=== PATIENT | female | born 1960 | race Caucasian/White ===

== ENCOUNTER 2024-08-27 11:47 | Inpatient (IN) | payer MEDICARE, SELFPAY ==
[2024-08-27] VITALS (20 sets, daily range): BP systolic 60–138; BP diastolic 47–95; PULSE 58–102; RESP 15–21; TEMP 36.3–37; O2SAT 94–100; BMI 25.6; BMI 25.8
--- NOTE | 2024-08-27 11:58 | EKG12_ITS ---
Test Reason : CP Blood Pressure : */* mmHG Vent. Rate : 99 BPM Atrial Rate : 99 BPM P-R Int : 90 ms QRS Dur : 130 ms QT Int : 348 ms P-R-T Axes : 12 64 36 degrees QTcB Int : 446 ms Sinus rhythm with short VT Right bundle branch block Abnormal ECG Confirmed by Liam Cain ([id number]), clinical editor PINO BANKS ([id number]) on 08/28/2024 9:35:19 AM Referred By: AR/TB Confirmed By: Liam Cain
--- NOTE | 2024-08-27 11:58 | RAD_ITS ---
PROCEDURE: CHEST PA AND LATERAL REASON FOR EXAM: Dizziness. Kidney infection. TECHNIQUE: Frontal and lateral views of the chest. COMPARISON: None. FINDINGS: The heart size is normal. The mediastinal contour is unremarkable. No acute consolidation, pleural effusion or pneumothorax. The visualized osseous structures demonstrate degenerative changes. RAD/Chest PA and Lateral IMPRESSION: No acute consolidation, pleural effusion or pneumothorax. Reading Location: [id number]
[2024-08-27 12:26] LABS: International Normalized Ratio 1.2; Prothrombin Time (Protime)PT. 14.9 SECONDS (11.7-14.9)
[2024-08-27 12:27] LABS: Partial Thromboplast Time 32.6 Seconds (24.1-36.2)
[2024-08-27 12:29] LABS: Absolute Neutrophil Count 19.5 X10^3/uL (2.0-7.7); Basophil# 0.12 X10^3/uL; Basophil% 0.5 % (0-1); Eosinophil# 0.01 X10^3/uL; Hematocrit 29.5 % (37-47); Hemoglobin 10.1 g/dL (12.0-15.0); Lymphocyte % 5.4 % (19-41); Mean Corp Hgb Conc 34.2 g/dL (32-36); Mean Corpuscular Hgb 31.4 pg (27.0-32.0); Mean Corpuscular Volume 91.6 fL (81-99); Mean Platelet Vol. 9.7 fl (6.2-12.0); Monocyte% 7.9 % (0-10); NRBC Flagged by Analyzer 0 % (0-5); Neutrophil % 81.7 % (47-70); POSITIVE DIFFERENTIAL YES; Platelet Count 449 K/mm3 (150-450); RBC Distribution Width CV 15.6 % (11.6-14.6); RBC Distribution Width SD 52.4 fl (35.1-43.9); Red Blood Count 3.22 M/mm3 (4.2-5.4); White Blood Count 23.9 K/mm3 (4.4-11.0)
[2024-08-27 12:34] LABS: Differential Indicated SCAN CRITERIA MET
[2024-08-27 12:42] LABS: Anion Gap 19 (5-15); BUN 31 mg/dL (4-19); BUN/Creat Ratio 9.5 RATIO (10-20); Calcium 8.5 mg/dL (7.6-11.0); Carbon Dioxide 20.4 mmol/L (22.0-29.0); Chloride 81 mmol/L (96-108); Creatinine, Serum 3.3 mg/dL (0.6-1.0); EST Glomerular Filtration Rate 15 (>60); Glucose 164 mg/dL (70-99); Potassium 3.9 mmol/L (3.3-5.1); Sodium Level 121 mmol/L (133-145)
[2024-08-27] MEDS: 0.9% Normal Saline (1000mL) 1,000 ML 999 ML IV ×3 (13:00→15:12)
--- NOTE | 2024-08-27 13:22 | US_ITS ---
PROCEDURE: KIDNEY AND BLADDER REASON FOR EXAM: UTI. Acute kidney injury. TECHNIQUE: Bilateral renal ultrasound. COMPARISON: None. FINDINGS: Normal renal sizes, parenchymal thicknesses, and echotextures. Moderate right hydronephrosis. No cysts or large solid renal masses. RIGHT Kidney Size: 12 cm x 6.5 cm x 4.9 cm Cortical Thickness (if discernible): 1.3 cm (>6mm is normal) Moderate degree of right hydronephrosis. LEFT Kidney Size: 10.6 cm x 4.8 cm x 5.5 cm Cortical Thickness (if discernible): 1.8 cm (>6mm is normal) US/Kidney and Bladder IMPRESSION: Moderate degree of right hydronephrosis. Reading Location: [id number]
[2024-08-27] MEDS: Ceftriaxone 1 GM/50 ML BAG IV (14:00)
[2024-08-27 14:14] LABS: Lactic Acid 1.7 mmol/L (0.0-2.0)
--- NOTE | 2024-08-27 14:17 | EX.ED.DYSGE1 ---
HPI History of Present Illness Chief Complaint: Dizziness Narrative Narrative: Patient is a 64-year-old female past medical history diabetes and hypertension who presents to the emergency department from her primary care office with a chief complaint of lightheadedness, generalized weakness feeling that she will fall and pass out. Patient states that she originally had influenza and got over that she states that she was dealing with urinary symptoms. States that she followed up with her primary care physician who prescribed her antibiotics today for UTI she states that she did not start them as she came immediately here because when she was walking out of the office she was very weak and lightheaded. Triage note states that the patient is dizzy after clarification the patient is not dizzy she feels lightheaded as noted earlier [facility] Medical History Diabetes Hypertension Allergy/AdvReac Type Severity Reaction Status Date / Time Sulfa (Sulfonamide Allergy Severe Angioedema Verified 08/27/24 12:50 Antibiotics) Social History Smoking Status: Current every day smoker tobacco type: cigarettes ROS ROS ED ROS Narrative Constitutional: Lightheadedness denies fevers, chills, headaches, dizziness Eyes: Denies changes double vision blurry vision Cardiovascular: Denies chest pain or palpitations Respiratory: Denies coughing wheezing shortness of breath Abdomen: Denies abdominal pain nausea vomit diarrhea : Denies any urinary symptoms Neurological: Complains of generalized weakness denies numbness or tingling Musculoskeletal: States that she does have some back pain in her sides bilaterally Skin: Denies any rashes or lesions EXAM Physical Exam Narrative Exam Narrative: General: Patient lying in bed rest comfortably did not appear to be in acute distress Head: Atraumatic, normocephalic Eyes: PERRL bilaterally, EOMI bilateral, no conjunctival injection noted Neck: Soft, supple, trachea midline Cardiovascular: Regular rate and rhythm no murmurs gallops rubs noted Respiratory: Clear to auscultation bilaterally Abdomen: Soft, nondistended, no tenderness palpation Musculoskeletal: Mild CVA tenderness noted more on the left than the right no tenderness palpation midline of the thoracolumbar spine Extremities: +5/5 strength noted in the bilateral upper and lower extremities, radial pulse +2/4 in the bilateral extremities Neurological: Patient following commands as she was at [facility] year is 2024. NIH of 0 GCS 15 Skin: Warm, dry, intact no rashes or lesions noted Const Vital Signs: 08/27/24 11:48 08/27/24 13:03 08/27/24 13:05 Temperature 98.1 F Temperature Source Temporal Pulse Rate 58 L Respiratory Rate 18 Blood Pressure 60/47 L Blood Pressure Mean 51 Pulse Ox 100 Oxygen Delivery Method Room Air Room Air Room Air 08/27/24 13:06 08/27/24 14:06 08/27/24 15:00 Temperature 98.6 F Temperature Source Oral Pulse Rate 94 87 82 Respiratory Rate 18 20 H Blood Pressure 81/47 L 79/58 L 93/56 L Blood Pressure Mean 58 65 68 Pulse Ox 95 98 Oxygen Delivery Method Room Air Room Air MDM MDM MDM Narrative Medical decision making narrative: Patient is a 64-year-old female who presented to the emergency department the chief complaint of lightheadedness, generalized weakness and dealing with a urinary tract infection. On the differential diagnose includes but not limited to urinary tract infection, pyelonephritis. Once workup is obtained reviewed she will be reevaluated. Patient be given 30 cc/kg bolus of IV fluids Which was ordered at 1305. Patient was given a gram of Rocephin at 1322. Patient CBC was significant leukocytosis of 23,000, he most 10.1, plate count was noted be 449. Patient INR normal at 1.2, PT 14.9. Patient sodium low at 121 indicating hyponatremia, has an anion gap of 19, glucose was noted to be 164. Patient's troponin was noted to be 35 with a delta troponin obtained at 32. Patient's urinalysis pending. Patient lactic acid normal at 1.7. Patient's ultrasound of her kidneys was reviewed and showed moderate degree of right hydronephrosis. I did add on a CT abdomen pelvis without IV contrast. Patient CT abdomen pelvis without IV contrast is still pending at this point time. Case was signed out to on-call provider to follow-up on this and likely admit the patient. See their note for the details. Reperfusion assessment performed at 1530 patient has a MAP of 68 therefore no vasopressors indicated. Lab Data Labs: Laboratory Results - last 24 hr 08/27/24 08/27/24 08/27/24 11:57 12:56 14:03 WBC 23.9 H RBC 3.22 L Hgb 10.1 L Hct 29.5 L MCV 91.6 MCH 31.4 MCHC 34.2 RDW Std Deviation 52.4 H RDW Coeff of Zainab 15.6 H Plt Count 449 MPV 9.7 Immature Gran % (Auto) 4.500 H Neut % (Auto) 81.7 H Lymph % (Auto) 5.4 L Harmon % (Auto) 7.9 Eos % (Auto) 0.0 Baso % (Auto) 0.5 Absolute Neuts (auto) 19.5 H Absolute Lymphs (auto) 1.30 Nucleated RBC % 0 Diff Path Review October foll PT 14.9 INR 1.2 APTT 32.6 Sodium 121 L Potassium 3.9 Chloride Direct 81 L Carbon Dioxide 20.4 L Anion Gap 19 H BUN 31 H Creatinine 3.3 H Est GFR (MDRD) Non-Af 15 L BUN/Creatinine Ratio 9.5 L Glucose 164 H Lactic Acid 1.7 Calcium 8.5 Troponin T High Sens 35 H Troponin T Hi Sens 2 Hr 32 H Troponin T Hi Sens 2Hr Delta 3 Radiography Diagnostic Testing: Clinical Impression(s) from Imaging Studies Chest X-Ray 08/27/24 11:58 IMPRESSION: No acute consolidation, pleural effusion or pneumothorax. Reading Location: [id number] Renal Ultrasound 08/27/24 13:22 IMPRESSION: Moderate degree of right hydronephrosis. Reading Location: [id number] Discharge Plan Triage Chief Complaint: Dizziness ED Provider: Willie Rees Dx/Rx/DC Orders Primary Care Provider: Avinash Senior Referrals: Avinash Senior MD [Primary Care Provider] - Print Language: Guyanese
[2024-08-27 14:18] LABS: Troponin T High Sensitivity 35 ng/L (<=14)
[2024-08-27 14:57] LABS: TROPONIN VARIANCE 2 HR 3; Troponin T High Sens 2 HR 32 ng/L (<=14)
--- NOTE | 2024-08-27 15:38 | CT_ITS ---
PROCEDURE: COMPUTED TOMOGRAPHY OF THE ABDOMEN AND PELVIS REASON FOR EXAM: Urinary tract infection. Dizziness. Diabetes and hypertension TECHNIQUE: Contiguous axial scans of 2.50 mm slice thicknesses. Sagittal and coronal reconstruction images were obtained. One or more dose reduction techniques were used (e.g., automated exposure control, adjustment of mA and/or kv according to patient size, use of iterative reconstruction technique). IV CONTRAST: Not given. COMPARISON: None. FINDINGS: Lung bases: Hypoventilatory changes and/or mild parenchymal scarring in the dependent lungs Liver: Unremarkable. Gallbladder: Unremarkable. Spleen: Unremarkable. Pancreas: Unremarkable. Adrenals: Unremarkable. Kidneys: Right kidney is enlarged with edematous changes. Perirenal fat stranding is seen on the right. Moderate hydronephrosis, right kidney. A lobulated hyperechogenic area is demonstrated in the right renal pelvis. Attenuation is slightly greater than the renal parenchyma. No calculi are noted in either kidney. Ureters unremarkable. Bladder: Unremarkable. Reproductive Organs: Unremarkable. Bowel: Unremarkable. Appendix: Normal. Lymph nodes: No suspicious lymph node enlargement. Vasculature: Atherosclerotic calcifications of the aortoiliac arteries. Peritoneum / Retroperitoneum: No ascites. No free air. Anterior abdominal wall: Fat containing periumbilical hernia. Bones: Approximately 6 mm of anterolisthesis of L4 on L5. Multilevel spondylosis and degenerative disc disease. CT/Abdomen/Pelvis without Cont IMPRESSION: 1. Edematous right kidney with perirenal fat stranding suggesting inflammation . 2. Moderate right hydronephrosis. 3. Lobulated area of soft tissue attenuation in the right renal pelvis. Can n ot exclude blood clot versus uroepithelial neoplasm. 4. Grade 1 anterolisthesis, L4 on L5. 5. Small fat containing periumbilical hernia. 6. Other nonacute findings detailed above. Reading Location: [place] [id number]
[2024-08-27 15:41] LABS: Mucous, Urine 0 SEEN /hpf (<or=2+)
[2024-08-27 16:04] LABS: Color, Urine Yellow (Yellow); Glucose, Dipstick Normal (Normal); Ketone-Dipstick Negative (Negative); Leukocyte Esterase-Dipstick 500 /ul (Negative); Nitrite-Dipstick Negative (Negative); Occult Blood-Urine 150 /ul (Negative); Protein-Dipstick 100 mg/dl (Negative); Urine Bilirubin Dipstick Negative (Negative); Urine Clarity Sl. Cloudy (Clear); Urine Urobilinogen Normal (Normal)
[2024-08-27 16:19] LABS: Bacteria 1+ /hpf (None Seen); Red Blood Cells-Urine 5-10 SEEN /hpf (0-5); Squamous Epithelial Cells - UA 0-5 SEEN /hpf (5-10); White Blood Cells 25-50 SEEN /hpf (0-5)
[2024-08-27 16:27] LABS: Blood Gas Specimen Type VEN; O2 Delivery Device Not entered; SITE Not entered; VBG BASE EXCESS -7 mmol/L (-1.0-3.5); VBG Bicarbonate 18 mmol/L (22-26); VBG PO2 40 mmHg (25-40); VBG SO2 77 % (50-70); VBG TCO2 19 mmol/L (23-33); VBG pCO2 28.2 mmHg (41-51)
[2024-08-27 17:34] LABS: TROPONIN VARIANCE 4 HR 9; Troponin T High Sens 4 HR 26 ng/L (<=14)
--- NOTE | 2024-08-27 17:36 | HP.PCM.HOS_ITS ---
HPI - General General Date of Service: 08/27/24 Chief Complaint: weakness. Fatigue HPI Narrative KRISTY MOJICA, is a 64 F who presents with 1 week history of weakness and fatigue has been progressing. Went saw her primary care doctor and she was just very weak and blood pressure was low send patient was sent to the emergency room. In the emergency room, patient was noted to be septic, white count was 23.9, creatinine is 3.3 and she had a urinalysis positive for UTI. She underwent a CT without contrast that showed an edematous right kidney with the perirenal fat stranding suggesting inflammation. Moderate right hydronephrosis. Lobulated area of soft tissue attenuation in the right renal pelvis. Patient did have an ultrasound that showed right hydronephrosis but did not note any area of soft tissue tissue attenuation. Patient received 30 cc/kg of IV fluids in the emergency room and blood pressure has remained stable. Patient being mated to the ICU for monitoring given her underlying sepsis diagnosis. Patient states that she has had several recent urinary tract infections and does not seem to respond to antibiotics as they once did. [facility] Medical History Diabetes Hypertension Home Medications ?Medication ?Instructions ?Recorded ?Last Taken ?Type atorvastatin 20 mg tablet 20 mg PO DAILY 08/27/24 Unkn own History benazepril 40 mg tablet 40 mg PO DAILY 08/27/24 Unkn own History diclofenac sodium 75 mg 75 mg PO BID pain 08/27/24 U nknown History tablet,delayed release hydrochlorothiazide 12.5 mg tablet 12.5 mg PO DAILY Unknown History metformin 500 mg tablet 500 mg PO DAILY 08/27/24 Unk nown History metoprolol tartrate 50 mg tablet 50 mg PO BID 08/27/24 Unknown History Allergy/AdvReac Type Severity Reaction Status Date / Time Sulfa (Sulfonamide Allergy Severe Angioedema Verified 08/27/24 12:50 Antibiotics) Social History Smoking Status: Current every day smoker tobacco type: cigarettes ROS ROS Narrative Some abdominal pain and back pain. All review of systems were negative except as mentioned above in the history of present illness and the other review of systems. Vital Signs Vital Signs Vital Signs: 08/27/24 11:48 08/27/24 13:03 08/27/24 13:05 Temperature 36.7 C Temperature Source Temporal Pulse Rate 58 L Respiratory Rate 18 Blood Pressure 60/47 L Blood Pressure Mean 51 Pulse Ox 100 Oxygen Delivery Method Room Air Room Air Room Air 08/27/24 13:06 08/27/24 14:06 08/27/24 15:00 Temperature 37.0 C Temperature Source Oral Pulse Rate 94 87 82 Respiratory Rate 18 20 H Blood Pressure 81/47 L 79/58 L 93/56 L Blood Pressure Mean 58 65 68 Pulse Ox 95 98 Oxygen Delivery Method Room Air Room Air 08/27/24 16:00 08/27/24 16:52 08/27/24 17:00 Temperature 37.0 C 36.6 C Temperature Source Oral Oral Pulse Rate 80 78 78 Respiratory Rate 18 20 H 17 Blood Pressure 95/54 L 92/60 88/61 L Blood Pressure Mean 67 70 70 Pulse Ox 95 97 Oxygen Delivery Method Room Air Room Air 08/27/24 17:09 Temperature 36.6 C Temperature Source Temporal Pulse Rate 79 Respiratory Rate 20 H Blood Pressure 88/61 L Blood Pressure Mean 70 Pulse Ox 94 Oxygen Delivery Method Room Air Weight Weight: 67.8 kg Body Mass Index (BMI) 25.6 Physical Exam Const alert and no apparent distress HEENT normocephalic, head/scalp atraumatic, hearing grossly normal bilaterally and moist oral mucous membranes Resp normal respiratory effort, no retractions, no use of accessory muscles and clear to auscultation bilaterally Cardio regular rate, regular rhythm, S1 normal heart sound and S2 normal heart sound GI normal to inspection, nondistended, normoactive bowel sounds, soft to palpation, non-tender and non-distended GI Narrative: No CVA tenderness Extremity normal to inspection and no clubbing, cyanosis or edema Neuro Sensorium / Orientation: awake and alert Psych affect normal Results Lab / Micro Data Attestation: I reviewed the patient's lab results. 08/27/24 11:57 08/27/24 11:57 Labs: Laboratory Results - last 24 hr 08/27/24 11:57: WBC 23.9 H, RBC 3.22 L, Hgb 10.1 L, Hct 29.5 L, MCV 91.6, MCH 31.4, MCHC 34.2, RDW Std Deviation 52.4 H, RDW Coeff of Zainab 15.6 H, Plt Count 449, MPV 9.7, Immature Gran % (Auto) 4.500 H, Neut % (Auto) 81.7 H, Lymph % (Auto) 5.4 L, Dougherty % (Auto) 7.9, Eos % (Auto) 0.0, Baso % (Auto) 0.5, Absolute Neuts (auto) 19.5 H, Absolute Lymphs (auto) 1.30, Nucleated RBC % 0, Diff Path Review October, PT 14.9, INR 1.2, APTT 32.6, Sodium 121 L, Potassium 3.9, C hloride Direct 81 L, Carbon Dioxide 20.4 L, Anion Gap 19 H, BUN 31 H, Creatinine 3.3 H, Est GFR (MDRD) Non-Af 15 L, BUN/Creatinine Ratio 9.5 L, Glucose 164 H, Calcium 8.5, Troponin T High Sens 35 H 08/27/24 12:56: Lactic Acid 1.7 08/27/24 14:03: Troponin T Hi Sens 2 Hr 32 H, Troponin T Hi Sens 2Hr Delta 3 08/27/24 15:30: Urine Color Yellow, Urine Clarity Sl. Cloudy, Urine pH 6.0, Ur Specific [place] 1.010, Urine Protein 100 H, Urine Glucose (UA) Normal, Urine Ketones Negative, Urine Occult Blood 150 H, Urine Nitrite Negative, Urine Bilirubin Negative, Urine Urobilinogen Normal, Ur Leukocyte Esterase 500 H, Urine RBC 5-10 SEEN, Urine WBC 25-50 SEEN, Ur Squamous Epith Cells 0-5 SEEN, Urine Bacteria 1+, Urine Mucus 0 SEEN 08/27/24 16:10: Acetone Level NEGATIVE 08/27/24 17:06: Troponin T Hi Sens 4Hr 26 H, Troponin T Hi Sens 4Hr Delta 9 Micro: Microbiology 08/27/24 13:10 Mucosa - Nose SARS-CoV-2, Influenza & RSV (PCR) - Final ABG Data ABG results: ABG 08/27/24 16:23 Specimen Type ROXANNE Sample Site Not entered VBG pH 7.40 VBG pO2 40 VBG HCO3 18 L VBG Total CO2 19 L VBG O2 Sat (Calc) 77 H VBG Base Excess -7 L POC Mix VBG pCO2 Pt Tmp 28.2 L O2 Delivery Device Not entered Imaging Radiology Impression Chest X-Ray 08/27/24 11:58 IMPRESSION: No acute consolidation, pleural effusion or pneumothorax. Reading Location: [id number] Renal Ultrasound 08/27/24 13:22 IMPRESSION: Moderate degree of right hydronephrosis. Reading Location: [id number] Abdomen/Pelvis CT 08/27/24 15:38 IMPRESSION: 1. Edematous right kidney with perirenal fat stranding suggesting inflammation. 2. Moderate right hydronephrosis. 3. Lobulated area of soft tissue attenuation in the right renal pelvis. Can not exclude blood clot versus uroepithelial neoplasm. 4. Grade 1 anterolisthesis, L4 on L5. 5. Small fat containing periumbilical hernia. 6. Other nonacute findings detailed above. Reading Location: [place] [id number] Assessment & Plan Assessment/Plan (1) Sepsis: PLAN: Patient received 30 cc/kg of IV fluids in emergency room and I saw her afterwards and she was normotensive at that time. Secondary to UTI. Follow-up on urine and blood cultures. No need for pressor support at this time. (2) UTI (urinary tract infection): PLAN: Patient received ceftriaxone in the emergency room and will continue for now. Patient's states that she has had frequent urinary tract infections and subjectively does not feel that the antibiotics have worked. Unclear if she does have a multidrug-resistant organism or not but will wait on final cultures. (3) GIANCARLO (acute kidney injury): PLAN: Suspect prerenal. Patient does take HCTZ at baseline which will be held. Additionally we will hold off on her benazepril. Check urine creatinine and urine urea. Continue with IV fluids. (4) Hyponatremia: PLAN: Probably multifactorial due to volume depletion due to dehydration and hydrochlorothiazide. Would monitor for now. Would not resume hydrochlorothiazide upon discharge. PLAN: Plan Diabetes mellitus type 2: Hold metformin. Sign scale insulin. Hyperlipidemia: Continue atorvastatin. VTE prophylaxis with subcu heparin CODE STATUS: Addressed with the patient. Patient wishes to be full code. Charges/Coding Visit Charges Inpatient E&M: 83043 Init Hosp L3
[2024-08-27 18:28] LABS: Lactic Acid 1.5 mmol/L (0.0-2.0)
[2024-08-27] MEDS: 0.9% Normal Saline (1000mL) 1,000 ML 150 ML IV (18:59)
[2024-08-27 21:10] LABS: Bedside Glucose 62 mg/dL (74-106)
[2024-08-27] MEDS: Heparin Injection (Vial) 5,000 UNIT/ML VIAL 5000 UNIT SC (21:18)
[2024-08-27] MEDS: Atorvastatin Calcium 20 MG Tablet PO (21:18)
[2024-08-27] MEDS: Acetaminophen 325 MG Tablet 650 MG PO (22:44)
[2024-08-27 22:59] LABS: Bedside Glucose 73 mg/dL (74-106)
[2024-08-28] VITALS (16 sets, daily range): BP systolic 90–139; BP diastolic 47–72; PULSE 61–95; RESP 14–20; TEMP 35.8–37.3; O2SAT 95–100; BMI 26.3
[2024-08-28 00:14] LABS: Urea Nitrogen, Urine 129 mg/dL (NO RANGE EST.)
[2024-08-28 05:31] LABS: Absolute Lymphocyte Count 1.51 X10^3/uL (0.83-4.51); Absolute Neutrophil Count 15.3 X10^3/uL (2.0-7.7); Basophil# 0.08 X10^3/uL; Basophil% 0.4 % (0-1); Eosinophil# 0.03 X10^3/uL; Eosinophils% 0.2 % (0-5); Hematocrit 25.5 % (37-47); Hemoglobin 8.6 g/dL (12.0-15.0); Lymphocyte # 1.51 X10^3/ul (0.83-4.51); Mean Corp Hgb Conc 33.7 g/dL (32-36); Mean Corpuscular Hgb 31.3 pg (27.0-32.0); Mean Corpuscular Volume 92.7 fL (81-99); Monocyte# 1.51 X10^3/uL; NRBC Flagged by Analyzer 0 % (0-5); Neutrophil # 15.33 X10^3/uL (2.7-7.7); Neutrophil % 80.6 % (47-70); POSITIVE DIFFERENTIAL YES; Platelet Count 384 K/mm3 (150-450); RBC Distribution Width CV 15.7 % (11.6-14.6); RBC Distribution Width SD 53.1 fl (35.1-43.9); Red Blood Count 2.75 M/mm3 (4.2-5.4)
[2024-08-28 05:39] LABS: Differential Indicated SCAN CRITERIA MET
[2024-08-28 06:18] LABS: Anion Gap 16 (5-15); BUN 27 mg/dL (4-19); BUN/Creat Ratio 11.2 RATIO (10-20); Calcium 7.6 mg/dL (7.6-11.0); Carbon Dioxide 18.9 mmol/L (22.0-29.0); Chloride 95 mmol/L (96-108); Creatinine, Serum 2.5 mg/dL (0.6-1.0); EST Glomerular Filtration Rate 21 (>60); Estimated Creatinine Clearance 21.48 ml/min; Glucose 87 mg/dL (70-99); Potassium 3.8 mmol/L (3.3-5.1); Sodium Level 129 mmol/L (133-145)
[2024-08-28 07:34] LABS: Hypochromasia 1+
--- NOTE | 2024-08-28 07:51 | EX.PCM.CONCC ---
Assessment & Plan Assessment/Plan (1) Sepsis: (2) UTI (urinary tract infection): PLAN: Plan RECOMMENDATIONS: 1. Continue antimicrobials, pending culture results. 2. Consider urology consultation if the patient clinically worsens. 3. Hold home antihypertensives for now. 4. Continue appropriate DVT prophylaxis. 5. The patient is medically stable for transfer out of the intensive care unit. Will sign off from a critical care perspective. IMPRESSIONS: 1. Sepsis The patient presented to the hospital with sepsis due to suspected UTI with acute sepsis related organ dysfunction as evidenced by acute kidney injury and fluid responsive hypotension. The patient never required the initiation of vasopressor support. She does report a history of frequent UTIs and is currently scheduled to follow-up at [facility] next week with a urologist. The patient does have evidence of right-sided hydronephrosis on CT imaging. If the patient were to decompensate clinically, recommend consultation to urology. Otherwise, continue current supportive care with antimicrobials, pending culture results. The patient remains otherwise hemodynamically stable on room air. 2. Acute kidney injury Most likely prerenal in etiology in the setting and #1. Creatinine has improved with volume expansion. Continue supportive measures as noted above. 3. History of hyperlipidemia/hypertension/diabetes mellitus Complicates care, management, recovery and prognosis. Continue sliding scale insulin coverage for now. This note was generated with [employer] dictation software. It may contain incorrect words, spelling, and punctuation that were not noted in checking the note before signing. HPI Consult Data Date of Consult: 08/28/24 HPI Narrative Reason for Consultation: Sepsis HPI Narrative: The patient is a 64-year-old female, with a history as outlined below, who presented to the emergency department on August 27 with complaints of generalized weakness and dysuria. The patient reported that the symptoms have been present now for approximately 1 week. She reported a history of frequent UTIs and stated that she is currently scheduled to follow-up with a urologist at [facility] next week. Her medical history is otherwise significant for hypertension, hyperlipidemia and diabetes mellitus. On presentation to the emergency department, the patient was documented to be afebrile but was notably hypotensive with a presenting blood pressure of 60/47 mmHg. Laboratory evaluation was notable for a white blood cell count of 24,000. Chemistry profile was notable for a sodium of 121, chloride of 81, bicarbonate of 20, anion gap of 19, BUN of 31 and creatinine of 3.3. Lactate was within normal limits. Urine analysis was positive for leukocyte esterase and 1+ urine bacteria. Renal ultrasound demonstrated a moderate degree of right-sided hydronephrosis. The patient was aggressively volume resuscitated and started on antimicrobials. She was subsequently admitted to the medical intensive care unit for further management. [facility] Medical History Diabetes Hypertension Home Medications ?Medication ?Instructions ?Recorded ?Last Taken ?Type atorvastatin 20 mg tablet 20 mg PO DAILY cholesterol 08/27/24 08/26/24 History benazepril 40 mg tablet 40 mg PO DAILY pain 08/27/24 08/26/24 History diclofenac sodium 75 mg 75 mg PO BID pain 08/27/24 08/26/24 History tablet,delayed release gabapentin PO QHS PRN pain 08/27/24 Unknown History hydrochlorothiazide 12.5 mg tablet 12.5 mg PO DAILY blood pressure 08/27/24 08/26/24 History metformin 500 mg tablet 500 mg PO DAILY diabetes 08/27/24 08/26/24 History metoprolol tartrate 50 mg tablet 50 mg PO BID blood pressure 08/27/24 08/26/24 History Allergy/AdvReac Type Severity Reaction Status Date / Time Sulfa (Sulfonamide Allergy Severe Angioedema Verified 08/27/24 12:50 Antibiotics) Social History Smoking Status: Current every day smoker tobacco type: cigarettes ROS ROS Narrative 10 systems were reviewed with pertinent positives as noted in the HPI above. Physical Exam Const alert and no apparent distress General Appearance: cooperative HEENT normocephalic and head/scalp atraumatic Eyes PERRL, EOMs intact bilaterally and conjunctivae normal Neck supple General: trachea midline Chest inspection of chest normal Resp normal respiratory effort Auscultation: Negative for rales, rhonchi or wheezes Cardio regular rate and regular rhythm GI normal to inspection, nondistended, normoactive bowel sounds Extremity no clubbing, cyanosis or edema Skin no rashes or lesions noted Neuro CN's II-XII intact bilaterally, moves all extremities and no focal motor deficits Psych cooperative and affect normal Lab / Micro Data 08/28/24 05:16 08/28/24 05:16 Labs: Laboratory Results - last 24 hr 08/27/24 11:57: WBC 23.9 H, RBC 3.22 L, Hgb 10.1 L, Hct 29.5 L, MCV 91.6, MCH 31.4, MCHC 34.2, RDW Std Deviation 52.4 H, RDW Coeff of Zainab 15.6 H, Plt Count 449, MPV 9.7, Immature Gran % (Auto) 4.500 H, Neut % (Auto) 81.7 H, Lymph % (Auto) 5.4 L, Mineral % (Auto) 7.9, Eos % (Auto) 0.0, Baso % (Auto) 0.5, Absolute Neuts (auto) 19.5 H, Absolute Lymphs (auto) 1.30, Nucleated RBC % 0, Diff Path Review October, PT 14.9, INR 1.2, APTT 32.6, Sodium 121 L, Potassium 3.9, Chloride Direct 81 L, Carbon Dioxide 20.4 L, Anion Gap 19 H, BUN 31 H, Creatinine 3.3 H, Est GFR (MDRD) Non-Af 15 L, BUN/Creatinine Ratio 9.5 L, Glucose 164 H, Calcium 8.5, Troponin T High Sens 35 H 08/27/24 12:56: Lactic Acid 1.7 08/27/24 14:03: Troponin T Hi Sens 2 Hr 32 H, Troponin T Hi Sens 2Hr Delta 3 08/27/24 15:30: Urine Color Yellow, Urine Clarity Sl. Cloudy, Urine pH 6.0, Ur Specific [place] 1.010, Urine Protein 100 H, Urine Glucose (UA) Normal, Urine Ketones Negative, Urine Occult Blood 150 H, Urine Nitrite Negative, Urine Bilirubin Negative, Urine Urobilinogen Normal, Ur Leukocyte Esterase 500 H, Urine RBC 5-10 SEEN, Urine WBC 25-50 SEEN, Ur Squamous Epith Cells 0-5 SEEN, Urine Bacteria 1+, Urine Mucus 0 SEEN 08/27/24 16:10: Acetone Level NEGATIVE 08/27/24 17:06: Troponin T Hi Sens 4Hr 26 H, Troponin T Hi Sens 4Hr Delta 9 08/27/24 17:50: Lactic Acid 1.5 08/27/24 20:38: POC Glucose 62 L 08/27/24 21:26: Urine Creatinine 49.00, Urine Urea Nitrogen 129 08/27/24 22:37: POC Glucose 73 L 08/28/24 05:16: WBC 19.0 H, RBC 2.75 L, Hgb 8.6 L, Hct 25.5 L, MCV 92.7, MCH 31.3, MCHC 33.7, RDW Std Deviation 53.1 H, RDW Coeff of Zainab 15.7 H, Plt Count 384, MPV 9.0, Immature Gran % (Auto) 2.800 H, Neut % (Auto) 80.6 H, Lymph % (Auto) 8.0 L, Mineral % (Auto) 8.0, Eos % (Auto) 0.2, Baso % (Auto) 0.4, Absolute Neuts (auto) 15.3 H, Absolute Lymphs (auto) 1.51, Nucleated RBC % 0, Diff Path Review May foll, Hypochromasia 1+, Sodium 129 L, Potassium 3.8, Chloride Direct 95 L, Carbon Dioxide 18.9 L, Anion Gap 16 H, BUN 27 H, Creatinine 2.5 H, Estim Creat Clear Calc 21.48, Est GFR (MDRD) Non-Af 21 L, BUN/Creatinine Ratio 11.2, Glucose 87, Calcium 7.6 Micro: Microbiology 08/27/24 13:10 Mucosa - Nose SARS-CoV-2, Influenza & RSV (PCR) - Final ABG Data ABG results: ABG 08/27/24 16:23 Specimen Type ROXANNE Sample Site Not entered VBG pH 7.40 VBG pO2 40 VBG HCO3 18 L VBG Total CO2 19 L VBG O2 Sat (Calc) 77 H VBG Base Excess -7 L POC Mix VBG pCO2 Pt Tmp 28.2 L O2 Delivery Device Not entered Imaging Radiology Impression Chest X-Ray 08/27/24 11:58 IMPRESSION: No acute consolidation, pleural effusion or pneumothorax. Reading Location: [id number] Renal Ultrasound 08/27/24 13:22 IMPRESSION: Moderate degree of right hydronephrosis. Reading Location: [place] Abdomen/Pelvis CT 08/27/24 15:38 IMPRESSION: 1. Edematous right kidney with perirenal fat stranding suggesting inflammation. 2. Moderate right hydronephrosis. 3. Lobulated area of soft tissue attenuation in the right renal pelvis. Can not exclude blood clot versus uroepithelial neoplasm. 4. Grade 1 anterolisthesis, L4 on L5. 5. Small fat containing periumbilical hernia. 6. Other nonacute findings detailed above. Reading Location: [place] [address] Charges/Coding Visit Charges Inpatient E&M: 75973 Init Hosp L3
[2024-08-28 08:14] LABS: Bedside Glucose 68 mg/dL (74-106)
[2024-08-28 08:22] LABS: Hemoglobin A1c 6.7 % (<=5.6)
[2024-08-28] MEDS: Metoprolol Tartrate 50 MG Tablet PO (09:28)
[2024-08-28] MEDS: Ceftriaxone 1 GM/50 ML BAG IV (09:29)
[2024-08-28] MEDS: Heparin Injection (Vial) 5,000 UNIT/ML VIAL 5000 UNIT SC ×2 (09:29→21:23)
[2024-08-28] MEDS: 0.9% Saline Lock 10 ML Syringe IV (09:29)
[2024-08-28] MEDS: Acetaminophen 325 MG Tablet 650 MG PO (09:29)
--- NOTE | 2024-08-28 11:10 | CASEMGMT ---
RN CM NET WPF DEVELOPER CM?to room to meet with patient for initial transition planning/care coordination assessment. RN CM?introduced self and role at [facility]. Pt voices understanding and consents to assessment?at this time. Pt resting in bed in no distress at this time. Pt is A/O at this time and answers all questions appropriately. Care providers, pharmacy, and demographics verified/updated at this time. Strata:?1 PCP: Dr Senior. Pt saw Dr Antonio @ the same office yesterday and was sent to ED. Specialists: Pt states she has an appt 09/01 @ [facility] w/a specialist, but she does not remember who it is. She also has an appt 09/02 @ [facility] w/a urologist (1st appt). Preferred Pharmacy: [facility]. Insurance: [facility] A only. Prescription Benefit: No Rx benefits. She uses [facility] when able to. Living Will/HPOA: Pt does not currently have LW/HCPOA and declines info at this time. Pt made aware that she can contact as an out-pt and make appt in the future if she decides she would like to talk with someone about this or would like to utilize [facility] social work for advanced directive completion. LNOK: Son, Wilberto. Dtr, Jennifer. Living Arrangements: Lives alone in 2-story home w/2 steps to enter. FFSU. Indep w/ADL's and IADL's. Support system: Pt states her boyfriend of 38-yrs, just last month. He had dementia and was on hospice. She became tearful talking about this with CHRIS LOPEZ. She states she has a good support system, stating her son is nearby and she talks w/her daughter daily, as well as other family members. Pt states she was working @ [employer], but states is currently off of work since passing of her BF. Transportation:?Pt states drives self and states no transportation concerns at this time. Her son will pick her up from the hospital @ discharge and plans to take her to her car @ PCP's office so she can drive her car home. DME: States has the following DME: functioning glucometer w/supplies. Pt states no need for further DME at this time. HHC/SNF: No hx of either. Pt declines need of HHC or OP therapy, stating she has been getting up w/staff assist for safety, but states her strength is pretty good and she is not using AD to ambulate. Pt wishes to return home and states has no concerns with going home at time of discharge. CM?to follow for any discharge planning/needs. Pt voices no further concerns/needs at this time. Advised pt to ask for CM?if any further questions/concerns/needs arise. Voices understanding. PLAN: Home Ethan BHARDWAJ RN CM
[2024-08-28 11:33] LABS: Bedside Glucose 123 mg/dL (74-106)
--- NOTE | 2024-08-28 14:55 | CHAPLAIN ---
Type of Pastoral Visit _x__ Initial Visit ___ Follow-up Visit ___ On-call Visit ___ General Patient Visit ___ Spiritual Assessment ___ Family Conference ___ Bereavement ___ Rapid Response ___ Code Blue ___ Other (describe below) Pastoral Care Referral From ___ Patient ___ Family ___ Nurse ___ Physician ___ Commercial Loan Processor _x__ Sign Maker ___ Other (describe below) Sacrament/Intervention _x__ Active listening ___ Anointing ___ Cheondoism _x__ Bereavement ___ Communion ___ Belle exploration ___ ___ Life review _x__ Prayer ___ Reconciliation ___ Sacrament of Sick _x__ Supportive presence ___ Wedding ___ Other (describe below) Pastoral Comments visit recommended by CM after her discussion with patient about recent and loss of SO; met with patient who confided on the same and explained how she is feeling, how she is coping, and what are the current concerns; pt's health is also addressed; pt welcomes presence and prayer for support
--- NOTE | 2024-08-28 16:40 | PN.HOSP_ITS ---
Reason for Visit Reason for Visit: Diagnoses Sepsis, unspecified organism (08/27/24) Hypo-osmolality and hyponatremia (08/27/24) Acute kidney failure, unspecified (08/27/24) Urinary tract infection, site not specified (08/27/24) Subjective Subjective Patient was seen and examined today, I talked briefly with critical care, she was made a PCU patient today. 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 Objective Data Objective Data Vital Signs: Vital Signs Temp Pulse Resp BP Pulse Ox O2 Del Method 96.5 F L 64 19 H 102/59 L 100 Room Air 08/28/24 14:35 08/28/24 14:35 08/28/24 14:35 08/28/24 15:02 08/28/24 14:40 08/28/24 14:35 Oxygen Delivery Method Room Air Weight: 69.6 kg Body Mass Index (BMI) 26.3 Intake & Output: Intake and Output for Last 24 Hours 08/26/24 08/27/24 08/28/24 23:59 23:59 23:59 Intake Total 2909.5 / 2909.5 1050 / 1050 Output Total 1180 / 1180 1400 / 1400 Balance 1729.5 / 1729.5 -350 / -350 Lab / Micro Data 08/28/24 05:16 08/28/24 05:16 Labs: Laboratory Results - last 24 hr 08/27/24 16:10: Acetone Level NEGATIVE 08/27/24 17:06: Troponin T Hi Sens 4Hr 26 H, Troponin T Hi Sens 4Hr Delta 9 08/27/24 17:50: Lactic Acid 1.5 08/27/24 20:38: POC Glucose 62 L 08/27/24 21:26: Urine Creatinine 49.00, Urine Urea Nitrogen 129 08/27/24 22:37: POC Glucose 73 L 08/28/24 05:16: WBC 19.0 H, RBC 2.75 L, Hgb 8.6 L, Hct 25.5 L, MCV 92.7, MCH 31.3, MCHC 33.7, RDW Std Deviation 53.1 H, RDW Coeff of Zainab 15.7 H, Plt Count 384, MPV 9.0, Immature Gran % (Auto) 2.800 H, Neut % (Auto) 80.6 H, Lymph % (Auto) 8.0 L, Eagle % (Auto) 8.0, Eos % (Auto) 0.2, Baso % (Auto) 0.4, Absolute Neuts (auto) 15.3 H, Absolute Lymphs (auto) 1.51, Nucleated RBC % 0, Diff Path Review May foll, Hypochromasia 1+, Sodium 129 L, Potassium 3.8, Chloride Direct 95 L, Carbon Dioxide 18.9 L, Anion Gap 16 H, BUN 27 H, Creatinine 2.5 H, Estim Creat Clear Calc 21.48, Est GFR (MDRD) Non-Af 21 L, BUN/Creatinine Ratio 11.2, Glucose 87, Hemoglobin A1c 6.7, Calcium 7.6 08/28/24 07:49: POC Glucose 68 L 08/28/24 11:16: POC Glucose 123 H Micro: Microbiology 08/27/24 12:56 Blood Culture (Wb) - Anticubital Right Bacteria Detection (PCR) - Final Staphylococcus epidermidis mecA Resistance Marker 08/27/24 12:56 Blood Culture (Wb) - Anticubital Right Blood Culture - Preliminary 08/27/24 15:30 Urine, Clean Catch Urine Culture - Preliminary GNR lactose monorail charger operator GPC Poss Enterococcus sp 08/27/24 13:10 Mucosa - Nose SARS-CoV-2, Influenza & RSV (PCR) - Final Physical Exam Const alert, oriented x3 and no apparent distress General Appearance: cooperative, well kempt and well developed Orientation / Consciousness: awake, oriented to person, oriented to place and oriented to time HEENT normocephalic and moist oral mucous membranes Eyes PERRL, EOMs intact bilaterally and conjunctivae normal Neck supple, no JVD, thyroid normal and no carotid bruits General: trachea midline Resp normal respiratory effort and clear to auscultation bilaterally Auscultation: Negative for rales, rhonchi or wheezes Cardio regular rate, regular rhythm, no murmurs, no rub and no gallops GI normal to inspection, nondistended, normoactive bowel sounds, soft to palpation, non-tender and non-distended Extremity no clubbing, cyanosis or edema Skin no rashes or lesions noted General Skin Exam: no breakdown Neuro oriented x3, CN's II-XII intact bilaterally, no focal motor deficits and no sensory deficits noted Sensorium / Orientation: awake and alert Speech: speech normal Psych affect normal Assessment & Plan Assessment/Plan (1) GIANCARLO (acute kidney injury): PLAN: Plan 1. Sepsis-secondary to urinary tract infection-patient's antibiotic will be changed to Unasyn from Rocephin due to the presence of possible Enterococcus. #2 acute kidney injury-Labs will be rechecked tomorrow, patient has received IV fluids #3 type 2 diabetes-patient's blood sugars will be monitored, sliding scale insulin will be administered per protocol #4 essential hypertension-patient's RICARDO inhibitor has been held at the present time due to her elevated creatinine, patient will remain on a beta-jocy Total clinical time spent by myself addressing the patient's medical issues, reviewing all of her data, and collaborating with patient's care team: 35 minutes Charges/Coding Visit Charges Inpatient E&M: 58472 Subs Hosp L2
[2024-08-28 16:51] LABS: Bedside Glucose 93 mg/dL (74-106)
[2024-08-28] MEDS: Ampicillin/Sulbactam 3 GM in 0.9% Normal Saline (100mL MB+) 100 ML IV (17:09)
[2024-08-28] MEDS: Atorvastatin Calcium 20 MG Tablet PO (21:23)
[2024-08-28 21:47] LABS: Bedside Glucose 106 mg/dL (74-106)
[2024-08-29] VITALS (9 sets, daily range): BP systolic 103–119; BP diastolic 57–67; PULSE 65–75; RESP 13–20; TEMP 36.4–36.9; O2SAT 95–100; BMI 26.0
[2024-08-29 08:51] LABS: Bedside Glucose 99 mg/dL (74-106)
[2024-08-29] MEDS: Heparin Injection (Vial) 5,000 UNIT/ML VIAL 5000 UNIT SC ×2 (08:56→21:06)
[2024-08-29] MEDS: Metoprolol Tartrate 50 MG Tablet PO (08:56)
[2024-08-29] MEDS: Ampicillin/Sulbactam 3 GM in 0.9% Normal Saline (100mL MB+) 100 ML IV ×2 (09:07→21:11)
[2024-08-29 09:24] LABS: Pathologist Review Reviewed
[2024-08-29 09:27] LABS: Pathologist Review Reviewed
--- NOTE | 2024-08-29 09:47 | PN.HOSP_ITS ---
Reason for Visit Reason for Visit: Diagnoses Sepsis, unspecified organism (08/27/24) Hypo-osmolality and hyponatremia (08/27/24) Acute kidney failure, unspecified (08/27/24) Urinary tract infection, site not specified (08/27/24) Subjective Subjective Patient was seen and examined today, she remains afebrile. I feels that she is stable for transfer to [facility] for further care. I have ordered a CBC on the patient today. Objective Data Objective Data Vital Signs: Vital Signs Temp Pulse Resp BP Pulse Ox O2 Del Method 97.5 F L 74 20 H 115/65 99 Room Air 08/29/24 08:52 08/29/24 08:56 08/29/24 08:52 08/29/24 08:52 08/29/24 08:52 08/29/24 08:52 Oxygen Delivery Method Room Air Weight: 68.9 kg Body Mass Index (BMI) 26.0 Intake & Output: Intake and Output for Last 24 Hours 08/27/24 08/28/24 08/29/24 23:59 23:59 23:59 Intake Total 2909.5 / 2909.5 1842 / 1842 Output Total 1180 / 1180 2150 / 2150 600 / 600 Balance 1729.5 / 1729.5 -308 / -308 -600 / -600 Lab / Micro Data 08/28/24 05:16 08/28/24 05:16 Labs: Laboratory Results - last 24 hr 08/27/24 11:57: Diff Path Review Reviewed 08/28/24 05:16: Diff Path Review Reviewed 08/28/24 11:16: POC Glucose 123 H 08/28/24 16:32: POC Glucose 93 08/28/24 21:24: POC Glucose 106 08/29/24 08:26: POC Glucose 99 Micro: Microbiology 08/27/24 12:56 Blood Culture (Wb) - Anticubital Right Bacteria Detection (PCR) - Final Staphylococcus epidermidis mecA Resistance Marker 08/27/24 12:56 Blood Culture (Wb) - Anticubital Right Blood Culture - Preliminary Staphylococcus epidermidis 08/27/24 15:30 Urine, Clean Catch Urine Culture - Preliminary GNR lactose sample distributor GPC Poss Enterococcus sp 08/27/24 13:10 Mucosa - Nose SARS-CoV-2, Influenza & RSV (PCR) - Final Physical Exam Narrative alert, oriented x3 and no apparent distress General Appearance: cooperative, well kempt and well developed Orientation / Consciousness: awake, oriented to person, oriented to place and oriented to time HEENT normocephalic and moist oral mucous membranes Eyes PERRL, EOMs intact bilaterally and conjunctivae normal Neck supple, no JVD, thyroid normal and no carotid bruits General: trachea midline Resp normal respiratory effort and clear to auscultation bilaterally Auscultation: Negative for rales, rhonchi or wheezes Cardio regular rate, regular rhythm, no murmurs, no rub and no gallops GI normal to inspection, nondistended, normoactive bowel sounds, soft to palpation, non-tender and non-distended Extremity no clubbing, cyanosis or edema Skin no rashes or lesions noted General Skin Exam: no breakdown Neuro oriented x3, CN's II-XII intact bilaterally, no focal motor deficits and no sensory deficits noted Sensorium / Orientation: awake and alert Speech: speech normal Psych affect normal Assessment & Plan Assessment/Plan (1) Sepsis: (2) GIANCARLO (acute kidney injury): PLAN: Plan 1. Sepsis-secondary to urinary tract infection-patient remains on Unasyn at this time, I will transfer her to [facility] for further care #2 acute kidney injury-Labs will be checked today, patient has received IV fluids #3 type 2 diabetes-patient's blood sugars will be monitored, sliding scale insulin will be administered per protocol #4 essential hypertension-patient's RICARDO inhibitor has been held at the present time due to her elevated creatinine, patient will remain on a beta-jocy Total clinical time spent by myself addressing the patient's medical issues, reviewing all of her data, and collaborating with patient's care team: 35 minutes Charges/Coding Visit Charges Inpatient E&M: 71712 Subs Hosp L2
[2024-08-29 10:30] LABS: Absolute Lymphocyte Count 1.34 X10^3/uL (0.83-4.51); Basophil# 0.07 X10^3/uL; Basophil% 0.6 % (0-1); Eosinophil# 0.05 X10^3/uL; Eosinophils% 0.4 % (0-5); Hematocrit 23.7 % (37-47); Hemoglobin 8.1 g/dL (12.0-15.0); Lymphocyte # 1.34 X10^3/ul (0.83-4.51); Lymphocyte % 10.8 % (19-41); Mean Corp Hgb Conc 34.2 g/dL (32-36); Mean Corpuscular Hgb 31.3 pg (27.0-32.0); Mean Corpuscular Volume 91.5 fL (81-99); Mean Platelet Vol. 9.1 fl (6.2-12.0); Monocyte# 1.54 X10^3/uL; Monocyte% 12.4 % (0-10); NRBC Flagged by Analyzer 0 % (0-5); Neutrophil # 8.95 X10^3/uL (2.7-7.7); Neutrophil % 71.7 % (47-70); POSITIVE DIFFERENTIAL YES; Platelet Count 412 K/mm3 (150-450); RBC Distribution Width CV 15.6 % (11.6-14.6); RBC Distribution Width SD 52.4 fl (35.1-43.9); Red Blood Count 2.59 M/mm3 (4.2-5.4); White Blood Count 12.5 K/mm3 (4.4-11.0)
[2024-08-29 10:36] LABS: Differential Indicated SCAN CRITERIA MET
[2024-08-29 11:04] LABS: Pathologist Review May foll
[2024-08-29 12:17] LABS: Bedside Glucose 99 mg/dL (74-106)
--- NOTE | 2024-08-29 14:30 | CASEMGMT ---
CHRIS LOPEZ NOTE: CHRIS CM to room. Pt resting in bed. She states she was up ambulating in the hallway w/therapy yesterday w/out use of AD and states was steady on her feet and has been getting up to bathroom today w/out difficulty. She denies having any discharge needs/concerns. Ethan BHARDWAJ RN CM
[2024-08-29] MEDS: Acetaminophen 325 MG Tablet 650 MG PO (15:38)
[2024-08-29 17:19] LABS: Bedside Glucose 88 mg/dL (74-106)
[2024-08-29] MEDS: Atorvastatin Calcium 20 MG Tablet PO (21:07)
[2024-08-29] MEDS: 0.9% Saline Lock 10 ML Syringe IV (21:11)
[2024-08-29 21:26] LABS: Bedside Glucose 107 mg/dL (74-106)
[2024-08-29 22:48] LABS: Anion Gap 18 (5-15); BUN 20 mg/dL (4-19); BUN/Creat Ratio 12.3 RATIO (10-20); Calcium 7.8 mg/dL (7.6-11.0); Chloride 94 mmol/L (96-108); Creatinine, Serum 1.59 mg/dL (0.70-1.20); EST Glomerular Filtration Rate 36 (>60); Estimated Creatinine Clearance 33.62 ml/min; Glucose 123 mg/dL (70-99); Potassium 3.9 mmol/L (3.3-5.1); Sodium Level 129 mmol/L (133-145)
[2024-08-30 08:00] VITALS: BP 114/62; PULSE 73; RESP 16; TEMP 36.7; O2SAT 100
--- NOTE | 2024-08-30 08:28 | DCINST_ITS ---
Discharge Instructions Diet Discharge Diet: 1800 Calorie Control Diet DC O2, CPAP, BIPAP needs Home O2 Discharge instructions: No Dressing / Incision Discharge Activity: Return to Normal Activity Weight Bearing Status: Full weight bearing Follow Up Care Test Results: Test results from this visit will be discussed in further detail at your follow- up appointment, if applicable. Discharge Plan Admission Admit Date/Time: 08/27/24 17:30 Primary Reason for Your Visit: sepsis, urinary tract infection, acute kidney injury Attending Provider: Shivam Dunn Primary Care Provider: Avinash Senior Consulting Providers: Jayme Singh Instructions Additional Instructions / Restrictions: Avoid taking any ibuprofen, Aleve, or diclofenac until you get your kidney functions rechecked next week, you can take Tylenol for pain 2 of your blood pressure medications were stopped, they may need to be restarted after you see your family practice physician next week Discharge Orders/Prescriptions Prescriptions: New ampicillin 500 mg capsule 500 mg PO TID Qty: 20 0RF Rx Instructions: Start on 08/30/2024-start in the afternoon, also take the evening dose Continued metformin 500 mg tablet 500 mg PO DAILY atorvastatin 20 mg tablet 20 mg PO DAILY metoprolol tartrate 50 mg tablet 50 mg PO BID gabapentin PO QHS PRN Patient Comments: Does not know her dose Discontinued diclofenac sodium 75 mg tablet,delayed release (DR/EC) 75 mg PO BID benazepril 40 mg tablet 40 mg PO DAILY hydrochlorothiazide 12.5 mg tablet 12.5 mg PO DAILY Referrals / Follow Up: Avinash Senior MD [Primary Care Provider] - In 1 Week (Please get a BMP done (lab) to check your kidney function) Disposition Disposition (needs filled in before D/C Order can be placed): Home, Self Care
--- NOTE | 2024-08-30 08:38 | PCM.DC.SUM ---
Providers Date of Admission: 08/27/24 Date of Discharge: 08/30/24 Primary Care Physician: Dr. Avinash Senior MD Consultations 08/27/24 18:31 Consult: Waste Cotton Cleaner / Pulmonary Medicine Routine Consulting Provider: Intensivists/Pulmonary Med Reason for Consult: sepsis committee guidelines EMERGENT Consult: No MD Notified: Yes Date Notified: 08/28/24 Time Notified: 06:07 Method of Notification: Text Reason For Visit: SEPSIS, UTI Diagnosis Discharge Diagnosis (1) Sepsis: Status: Acute Code(s): A41.9 - Sepsis, unspecified organism (2) GIANCARLO (acute kidney injury): Status: Acute Code(s): N17.9 - Acute kidney failure, unspecified Plan 1. Sepsis-secondary to urinary tract infection-urine culture grew out gram-negative lactose street cleaner and possible Enterococcus #2 acute kidney injury-Labs will be checked today, patient has received IV fluids #3 type 2 diabetes-patient's blood sugars will be monitored, sliding scale insulin will be administered per protocol #4 essential hypertension-patient's RICARDO inhibitor has been held at the present time due to her elevated creatinine, patient will remain on a beta-jocy Total clinical time spent by myself addressing the patient's medical issues, reviewing all of her data, and collaborating with patient's care team: 35 minutes Medications at Discharge Home Medications atorvastatin 20 mg tablet 20 mg PO DAILY cholesterol 08/27/24 gabapentin PO QHS PRN pain 08/27/24 metformin 500 mg tablet 500 mg PO DAILY diabetes 08/27/24 metoprolol tartrate 50 mg tablet 50 mg PO BID blood pressure 08/27/24 ampicillin 500 mg capsule 500 mg PO TID #20 caps 08/30/24 Hospital Course Operations None Procedures None Summary of Care Provided Minutes Spent on Discharge: 31 Hospital Course: 64-year white female seen in the emergency room at [facility] with a chief complaint of lightheadedness, generalized weakness, and malaise. She had seen her primary care physician who had prescribed antibiotics for a urinary tract infection, patient started to walk out of his office and because of lightheadedness came to the emergency room for evaluation. Workup in the ER included a white blood cell count was elevated at 23.9, hemoglobin was 10.1, BUN was 31 and creatinine was 3.3, sodium was 121. Chest x-ray was unremarkable, renal ultrasound showed a moderate degree of right hydronephrosis, CT of the abdomen pelvis was obtained that showed edematous right kidney with moderate right hydronephrosis. Patient was admitted to ICU for sepsis from urinary tract infection, IV antibiotics were administered and patient was given IV fluids, her creatinine improved during her hospital stay, blood culture was negative, urine culture showed small numbers of possible Enterococcus and a gram-negative lactose street cleaner. On 08/30/2024, patient was seen and examined: On examination she appeared in good health and spirits, she does not appear to be in any distress. Vital signs as documented. Skin warm and dry and without overt rashes. Neck without JVD, thyroid appears normal, trachea is midline, neck is supple. Lungs clear, normal air movement was noted. Heart exam notable for regular rhythm, normal sounds and absence of murmurs, rubs or gallops. Abdomen unremarkable and without evidence of organomegaly, masses, or abdominal aortic enlargement, bowel sounds are present in all 4 quadrants, no abdominal tenderness was noted. Extremities nonedematous, no cyanosis was noted, no clubbing was noted. Neuro: Cranial nerves II through XII are grossly intact, no focal motor deficits were noted, sensation to light touch and pinprick is intact, motor exam 5/5 throughout. Psych: Patient is alert and oriented x3, she does not appear anxious or depressed, she does not appear agitated. Patient was discharged home in stable condition on 08/30/2024. Weight / BMI Weight Weight: 68.9 kg Body Mass Index (BMI) 26.0 ABG / Lab / Microbiology Data 08/29/24 10:16 08/29/24 10:16 Laboratory: Laboratory Results - last 24 hr 08/27/24 11:57: Diff Path Review Reviewed 08/28/24 05:16: Diff Path Review Reviewed 08/29/24 08:26: POC Glucose 99 08/29/24 10:16: WBC 12.5 H, RBC 2.59 L, Hgb 8.1 L, Hct 23.7 L, MCV 91.5, MCH 31.3, MCHC 34.2, RDW Std Deviation 52.4 H, RDW Coeff of Zainab 15.6 H, Plt Count 412, MPV 9.1, Immature Gran % (Auto) 4.100 H, Neut % (Auto) 71.7 H, Lymph % (Auto) 10.8 L, [place] % (Auto) 12.4 H, Eos % (Auto) 0.4, Baso % (Auto) 0.6, Absolute Neuts (auto) 9.0 H, Absolute Lymphs (auto) 1.34, Nucleated RBC % 0, Differential Comment COMMENT, Diff Path Review May foll, Sodium 129 L, Potassium 3.9, Chloride Direct 94 L, Carbon Dioxide 17.0 L, Anion Gap 18 H, BUN 20 H, Creatinine 1.59 H, Estim Creat Clear Calc 33.62, Est GFR (MDRD) Non-Af 36 L, BUN/Creatinine Ratio 12.3, Glucose 123 H, Calcium 7.8 08/29/24 11:50: POC Glucose 99 08/29/24 16:42: POC Glucose 88 08/29/24 21:05: POC Glucose 107 H Microbiology: Microbiology 08/27/24 15:30 Urine, Clean Catch Urine Culture - Final GNR lactose street cleaner GPC Poss Enterococcus sp 08/27/24 13:05 Blood Culture (Wb) - Left Wrist Blood Culture - Preliminary No growth in 48 hours. 08/27/24 12:56 Blood Culture (Wb) - Anticubital Right Bacteria Detection (PCR) - Final Staphylococcus epidermidis mecA Resistance Marker 08/27/24 12:56 Blood Culture (Wb) - Anticubital Right Blood Culture - Preliminary Staphylococcus epidermidis 08/27/24 13:10 Mucosa - Nose SARS-CoV-2, Influenza & RSV (PCR) - Final D/C Instructions Discharge Diet: 1800 Calorie Control Diet Weight Bearing Status: Full weight bearing DC O2, CPAP, BIPAP Needs Home O2 Discharge instructions: No Meaningful Use Info Meaningful Use Meaningful Use Diagnoses (Choose all that apply): None applicable Ischemic Stroke Statin Dosing Therapy Reference: STATIN DOSE THERAPY REFERENCE: * Patients > 75 years receive moderate or high dose statin therapy. * Patients 75 years or YOUNGER should receive HIGH intensity statin dose unless contraindicated. You will be required to document reason for non-treatment if statin daily dose does not meet guidelines. HIGH DOSE STATIN THERAPY DAILY Atorvastatin > than or = to 40 mg Rosuvastatin > than or = to 20 mg Amlodipine + Atorvastatin > than or = to 2.5/40 mg Ezetimibe + Simvastatin 10/80 mg Simvastatin 80mg Discharge Plan Admission Admit Date/Time: 08/27/24 17:30 Primary Reason for Your Visit: sepsis, urinary tract infection, acute kidney injury Attending Provider: Shivam Dunn Primary Care Provider: Avinash Senior Consulting Providers: Jayme Singh Instructions Additional Instructions / Restrictions: Avoid taking any ibuprofen, Aleve, or diclofenac until you get your kidney functions rechecked next week, you can take Tylenol for pain 2 of your blood pressure medications were stopped, they may need to be restarted after you see your family practice physician next week Discharge Orders/Prescriptions Prescriptions: New ampicillin 500 mg capsule 500 mg PO TID Qty: 20 0RF Rx Instructions: Start on 08/30/2024-start in the afternoon, also take the evening dose Continued metformin 500 mg tablet 500 mg PO DAILY atorvastatin 20 mg tablet 20 mg PO DAILY metoprolol tartrate 50 mg tablet 50 mg PO BID gabapentin PO QHS PRN Patient Comments: Does not know her dose Discontinued diclofenac sodium 75 mg tablet,delayed release (DR/EC) 75 mg PO BID benazepril 40 mg tablet 40 mg PO DAILY hydrochlorothiazide 12.5 mg tablet 12.5 mg PO DAILY Referrals / Follow Up: Avinash Senior MD [Primary Care Provider] - In 1 Week (Please get a BMP done (lab) to check your kidney function) Disposition Disposition (needs filled in before D/C Order can be placed): Home, Self Care Charges/Coding Visit Charges Inpatient E&M: 36406 Disch Hosp >30min
== END 2024-08-30 09:30 | disposition home or self-care (01) | DRG 872 ==
LOC: ED 13:29 → ICU 17:39
PROVIDERS: Emergency Provider Emergency Medicine; PCP Internal Medicine; Visit Provider Internal Medicine
DX: A41.81 Sepsis due to Enterococcus (principal); E87.1 Hypo-osmolality and hyponatremia; N17.9 Acute kidney failure, unspecified; N10 Acute pyelonephritis; N39.0 Urinary tract infection, site not specified; E11.9 Type 2 diabetes mellitus without complications; I10 Essential (primary) hypertension; E78.5 Hyperlipidemia, unspecified; F17.210 Nicotine dependence, cigarettes, uncomplicated; M43.16 Spondylolisthesis, lumbar region; K42.9 Umbilical hernia without obstruction or gangrene; Z79.84 Long term (current) use of oral hypoglycemic drugs; Z79.2 Long term (current) use of antibiotics; Z88.2 Allergy status to sulfonamides; Z79.02 Long term (current) use of antithrombotics/antiplatelets; Z79.899 Other long term (current) drug therapy; Z87.442 Personal history of urinary calculi; B96.89 Other specified bacterial agents as the cause of diseases classified elsewhere
CPT/HCPCS: 36415; 71046; 74176; 76770; 80048; 81001; 82009; 82570; 82803; 82962; 83036; 83605; 84484; 84540; 85025; 85610; 85730; 87040; 87086; 87088; 87149; 87631; 93005; 94762; 97162; 97165; 97802; 99285; 99406; A4216; J0295

== ENCOUNTER 2024-10-16 15:28 | Inpatient (IN) | payer MEDICARE, SELFPAY ==
[2024-10-16] VITALS (10 sets, daily range): BP systolic 121–148; BP diastolic 63–82; PULSE 88–130; RESP 16–18; TEMP 36.8–36.9; O2SAT 98–130; BMI 25.5; BMI 25.1
--- NOTE | 2024-10-16 15:41 | EKG12_ITS ---
Test Reason : PALPITATIONS Blood Pressure : */* mmHG Vent. Rate : 112 BPM Atrial Rate : 112 BPM P-R Int : 114 ms QRS Dur : 138 ms QT Int : 352 ms P-R-T Axes : 55 87 47 degrees QTcB Int : 480 ms Sinus tachycardia Right bundle branch block Abnormal ECG Confirmed by MALI DOMINGUEZ, VIRAL ([id number]), script editor ELENA KAMARA ([id number]) on 10/20/2024 8:41:21 AM Referred By: Confirmed By: VIRAL SAMSON MD
[2024-10-16 16:07] LABS: Absolute Lymphocyte Count 0.59 X10^3/uL (0.83-4.51); Absolute Neutrophil Count 15.5 X10^3/uL (2.0-7.7); Basophil# 0.15 X10^3/uL; Basophil% 0.8 % (0-1); Eosinophil# 0.01 X10^3/uL; Eosinophils% 0.1 % (0-5); Hematocrit 28.7 % (37-47); Hemoglobin 10.4 g/dL (12.0-15.0); Lymphocyte # 0.59 X10^3/ul (0.83-4.51); Lymphocyte % 3.3 % (19-41); Mean Corp Hgb Conc 36.2 g/dL (32-36); Mean Corpuscular Hgb 33.5 pg (27.0-32.0); Mean Corpuscular Volume 92.6 fL (81-99); Mean Platelet Vol. 9.6 fl (6.2-12.0); Monocyte# 0.89 X10^3/uL; NRBC Flagged by Analyzer 0 % (0-5); Neutrophil # 15.53 X10^3/uL (2.7-7.7); Neutrophil % 86.7 % (47-70); POSITIVE DIFFERENTIAL YES; POSITIVE MORPHOLOGY YES; Platelet Count 142 K/mm3 (150-450); RBC Distribution Width CV 19.1 % (11.6-14.6); RBC Distribution Width SD 64.7 fl (35.1-43.9); White Blood Count 17.9 K/mm3 (4.4-11.0)
[2024-10-16 16:13] LABS: Differential Indicated SCAN CRITERIA MET
--- NOTE | 2024-10-16 16:20 | CT_ITS ---
PROCEDURE: ABDOMEN/PELVIS WITHOUT CONT 10/16/2024 REASON FOR EXAM: LEFT FLANK PAIN TECHNIQUE: Abdomen and pelvis CT without intravenous contrast. Noncontrast technique limits evaluation of the abdominal and pelvic viscera. Coronal and Sagittal reconstruction series were provided. One or more dose reduction techniques were used (e.g., Automated exposure control, adjustment of the mA and/or kV according to patient size, use of iterative reconstruction technique). PATIENT PREPARATION: Per protocol ORAL CONTRAST TYPE: None. AMOUNT: mL COMPARISON: CT of the abdomen and pelvis dated 08/27/2024. FINDINGS: Lung bases: Mild dependent atelectasis Liver: Diffuse fatty infiltration. Gallbladder: Unremarkable Spleen: Normal size. Pancreas: Normal size. No surrounding inflammation. Adrenals: Unremarkable Kidneys: The right kidney is edematous with mild perinephric stranding there is moderate to severe hydronephrosis, no obstructing stone is visualized. However, noted again is a lobular hyperattenuating region within the right renal pelvis, similar in appearance to the prior study. The left kidney appears grossly unremarkable. Bladder: Urinary bladder is completely decompressed. Reproductive Organs: Normal uterine size and contour. Ovaries are unremarkable. Bowel: The stomach is decompressed. No inflammatory changes of the bowel loops are demonstrated. Appendix: The appendix is not clearly visualized. Lymph nodes: No lymphadenopathy. Vasculature: Mild diffuse atherosclerotic calcifications are noted. Peritoneum / Retroperitoneum: No free air or free fluid. Bones: Grade 1 anterolisthesis of L4 on L5. Mild degenerative changes of the lumbar spine. CT/Abdomen/Pelvis without Cont IMPRESSION: Edematous and enlarged right kidney with mild perinephric stranding, underlying infection can not be excluded. Moderate to severe right hydronephrosis, no obstructing stone. However, noted again is a lobular hyperattenuating region within the right renal pelvis, differentials would include hematoma versus neoplasm. Reading Location: [facility]
--- NOTE | 2024-10-16 16:21 | EDS_ITS ---
HPI History of Present Illness Chief Complaint: Complaint Narrative Narrative: 64-year-old female past medical history of hypertension, diabetes, presents with UTI type symptoms left flank pain that she has had for about a week. She states she was sent over from urgent care. She states that she think she has a UTI because she has urinary frequency but only goes a small amount. She denies any gross hematuria, no exacerbating or alleviating factors. She complains of left flank pain and subjective fever. No nausea or vomiting. No other symptoms. [facility] Medical History Hyponatremia GIANCARLO (acute kidney injury) UTI (urinary tract infection) Sepsis Diabetes Hypertension Home Medications ?Medication ?Instructions ?Recorded ?Last Taken ?Type atorvastatin 20 mg tablet 20 mg PO DAILY cholesterol 0 08/27/24 08/26/24 History gabapentin PO QHS PRN pain 08/27/24 Unk nown History metformin 500 mg tablet 500 mg PO DAILY diabetes 08/26/24 History metoprolol tartrate 50 mg tablet 50 mg PO BID blood pr essure 08/27/24 08/26/24 History ampicillin 500 mg capsule 500 mg PO TID #20 caps 08/30 Unknown Rx Allergy/AdvReac Type Severity Reaction Status Date / Time Sulfa (Sulfonamide Allergy Severe Angioedema Verified 10/16/24 15:33 Antibiotics) Social History Smoking Status: Current every day smoker tobacco type: cigarettes ROS ROS ED ROS Narrative Constitutional: Subjective fever, no chills. Cardiovascular: No chest pain. No palpitations. No pedal edema. Respiratory: No cough, no shortness of breath. Abdominal: No abdominal pain. No nausea. No vomiting. Genitourinary: Positive dysuria. No hematuria. Urinary frequency, small amounts. Positive left flank pain. EXAM Physical Exam Narrative Exam Narrative: Afebrile. Vital signs noted. Nontoxic-appearing. Cardiovascular examination reveals positive tachycardia. Lungs clear to auscultation bilaterally. Abdomen soft, nontender without guarding or rebound. Positive bowel sounds. Questionable CVA tenderness to percussion, left. Neurological examination nonfocal, nonlateralizing. Const Vital Signs: 10/16/24 15:29 Temperature 98.2 F Temperature Source Oral Pulse Rate 130 H Respiratory Rate 18 Blood Pressure 132/82 H Blood Pressure Mean 98 Pulse Ox 130 Oxygen Delivery Method Room Air MDM MDM MDM Narrative Medical decision making narrative: Differential diagnosis includes but not limited to cystitis versus pyelonephritis versus ureterolithiasis versus diverticulitis. History and p hysical does not support diverticulitis. Lab Data Labs: Laboratory Results - last 24 hr 10/16/24 15:40 WBC 17.9 H RBC 3.10 L Hgb 10.4 L Hct 28.7 L MCV 92.6 MCH 33.5 H MCHC 36.2 H RDW Std Deviation 64.7 H RDW Coeff of Zainab 19.1 H Plt Count 142 L MPV 9.6 Immature Gran % (Auto) 4.100 H Neut % (Auto) 86.7 H Lymph % (Auto) 3.3 L [place] % (Auto) 5.0 Eos % (Auto) 0.1 Baso % (Auto) 0.8 Absolute Neuts (auto) 15.5 H Absolute Lymphs (auto) 0.59 L Nucleated RBC % 0 Discharge Plan Triage Chief Complaint: Complaint ED Provider: Ady Casas Dx/Rx/DC Orders Prescriptions: No Action metformin 500 mg tablet 500 mg PO DAILY atorvastatin 20 mg tablet 20 mg PO DAILY metoprolol tartrate 50 mg tablet 50 mg PO BID gabapentin PO QHS PRN Patient Comments: Does not know her dose ampicillin 500 mg capsule 500 mg PO TID Qty: 20 0RF Rx Instructions: Start on 08/30/2024-start in the afternoon, also take the evening dose Primary Care Provider: Avinash Senior Referrals: Avinash Senior MD [Primary Care Provider] - Print Language: French
--- NOTE | 2024-10-16 16:21 | EX.ED.DYSGE1 ---
HPI History of Present Illness Chief Complaint: Complaint Narrative Narrative: 64-year-old female past medical history of hypertension, diabetes, presents with UTI type symptoms left flank pain that she has had for about a week. She states she was sent over from urgent care. She states that she think she has a UTI because she has urinary frequency but only goes a small amount. She denies any gross hematuria, no exacerbating or alleviating factors. She complains of left flank pain and subjective fever. No nausea or vomiting. No other symptoms. [facility] Medical History (Updated 10/16/24 @ 19:18 by Ady Casas MD) Chronic painful diabetic neuropathy CKD (chronic kidney disease), stage III Tobacco use Chronic anemia Diabetes mellitus, type 2 HLD (hyperlipidemia) Hypertension Home Medications ?Medication ?Instructions ?Recorded ?Last Taken ?Type atorvastatin 20 mg tablet 20 mg PO DAILY cholesterol 08/27/24 10/15/24 History metformin 500 mg tablet 500 mg PO DAILY diabetes 08/27/24 10/15/24 History metoprolol tartrate 50 mg tablet 50 mg PO BID blood pressure 08/27/24 10/15/24 History albuterol sulfate 90 mcg/actuation 2 puff inhalation Q6H PRN wheezing 10/16/24 Unknown History aerosol inhaler hydrochlorothiazide 12.5 mg tablet 12.5 mg PO DAILY 10/16/24 10/15/24 History Allergy/AdvReac Type Severity Reaction Status Date / Time Sulfa (Sulfonamide Allergy Severe Angioedema Verified 10/16/24 15:33 Antibiotics) Family History (Updated 10/16/24 @ 19:[address] Renae Pyle MD) Mother Hypertension Diabetes Father Hypertension Surgical History (Updated 10/16/24 @ 19:[address] Renae Pyle MD) No history of previous surgery Social History (Updated 10/16/24 @ 19:[address] Renae Pyle MD) household members: none Smoking Status: Current every day smoker tobacco type: cigarettes Smoking packs per day: 0.75 Smoking cigarettes per day: 15.0 alcohol intake: current alcohol intake frequency: 3 or more drinks per day Alcohol type: hard liquor details: The equivalent of ~ 2-3 rum+coke daily. substance use type: does not use ROS ROS ED ROS Narrative Constitutional: Subjective fever, no chills. Cardiovascular: No chest pain. No palpitations. No pedal edema. Respiratory: No cough, no shortness of breath. Abdominal: No abdominal pain. No nausea. No vomiting. Genitourinary: Positive dysuria. No hematuria. Urinary frequency, small amounts. Positive left flank pain. EXAM Physical Exam Narrative Exam Narrative: Afebrile. Vital signs noted. Nontoxic-appearing. Cardiovascular examination reveals positive tachycardia. Lungs clear to auscultation bilaterally. Abdomen soft, nontender without guarding or rebound. Positive bowel sounds. Questionable CVA tenderness to percussion, left. Neurological examination nonfocal, nonlateralizing. Const Vital Signs: 10/16/24 15:29 10/16/24 15:32 10/16/24 16:32 Temperature 98.2 F 98.2 F 98.2 F Temperature Source Oral Oral Oral Pulse Rate 130 H 130 H 98 Respiratory Rate 18 16 18 Blood Pressure 132/82 H 132/82 H 132/82 H Blood Pressure Mean 98 98 98 Pulse Ox 130 98 99 Oxygen Delivery Method Room Air Room Air Room Air 10/16/24 17:00 10/16/24 17:28 10/16/24 17:57 Temperature 98.2 F 98.2 F Temperature Source Oral Oral Pulse Rate 98 96 Respiratory Rate 18 16 Blood Pressure 131/82 H 131/82 H 130/67 H Blood Pressure Mean 98 98 88 Pulse Ox 99 99 Oxygen Delivery Method Room Air Room Air 10/16/24 18:50 10/16/24 18:51 10/16/24 18:51 Temperature 98.2 F 98.2 F Temperature Source Oral Pulse Rate 89 88 Respiratory Rate 16 16 Blood Pressure 121/71 H 121/71 H 121/71 H Blood Pressure Mean 87 87 87 Pulse Ox 99 99 Oxygen Delivery Method Room Air MDM MDM MDM Narrative Medical decision making narrative: Differential diagnosis includes but not limited to cystitis versus pyelonephritis versus ureterolithiasis versus diverticulitis. History and physical does not support diverticulitis. Comprehensive workup was pursued. I reviewed her laboratory work and she has elevated white count of 17.9. In review of prior labs, this is actually improved. Hemoglobin stable at 10.4 with platelet count slightly low at 142. It is more nonspecific. BMP shows sodium low at 125 but when compared to prior values/laboratories she has chronic hyponatremia. Potassium is low at 2.8. Initially this was replaced orally with 40 mill equivalents. I did add a magnesium which is also low at 0.7. BUN normal at 16 with creatinine 1.80. Lactic acid is elevated at 3.0. Patient bolused normal saline. Urinalysis shows WBCs greater than 100. Given her lactic acidosis and leukocytosis, blood cultures and urine cultures were obtained and are pending. After normal saline her heart rate is currently at 88. In review of her prior records, she was admitted here in August where she had sepsis from a UTI as well. She had hydronephrosis diagnosed on ultrasound. On reexamination of the patient, she is resting comfortably, but once again states that the pain that she is having that brought her in is on the left side, not the right. I reviewed the radiology report of the CT of the abdomen and pelvis without contrast. There is moderate and increasing hydronephrosis on the right with perinephric stranding. Once again, patient is not having any pain on the right. She was started on Rocephin 2 g. I discussed the patient with the hospitalist who will replace her magnesium, but wanted me to discuss the patient with urology. Dr. Cisneros. I did discuss patient with urology who agrees with culturing urine, treating his UTI, and patient can be seen as an inpatient. Disposition is admit to the PCU in stable condition. History & Record Review Discussion w/independent historian: Patient Additional record(s) reviewed:: Prior ED visit and Prior labs Lab Data Attestation: I reviewed the patient's lab results. Labs: Laboratory Results - last 24 hr 10/16/24 10/16/24 10/16/24 12:30 15:40 17:15 WBC 17.9 H RBC 3.10 L Hgb 10.4 L Hct 28.7 L MCV 92.6 MCH 33.5 H MCHC 36.2 H RDW Std Deviation 64.7 H RDW Coeff of Zainab 19.1 H Plt Count 142 L MPV 9.6 Immature Gran % (Auto) 4.100 H Neut % (Auto) 86.7 H Lymph % (Auto) 3.3 L [place] % (Auto) 5.0 Eos % (Auto) 0.1 Baso % (Auto) 0.8 Absolute Neuts (auto) 15.5 H Absolute Lymphs (auto) 0.59 L Nucleated RBC % 0 Toxic Granulation 1+ Sodium 125 L Potassium 2.8 L Chloride 83 L Carbon Dioxide 20.9 L Anion Gap 21 H BUN 16 Creatinine 1.80 H Estim Creat Clear Calc 29.44 L Est GFR (MDRD) Non-Af 31 L BUN/Creatinine Ratio 8.9 L Glucose 135 H Lactic Acid 3.0 H* Calcium 7.3 L Magnesium 0.7 L* Urine Color Urine Clarity Urine pH Ur Specific [place] Urine Protein Urine Glucose (UA) Urine Ketones Urine Occult Blood Urine Nitrite Urine Bilirubin Urine Urobilinogen Ur Leukocyte Esterase Urine RBC Urine WBC Ur Squamous Epith Cells Urine Bacteria Coarse Granular Casts Urine Mucus U Random Total Protein 316.0 H 10/16/24 17:30 WBC RBC Hgb Hct MCV MCH MCHC RDW Std Deviation RDW Coeff of Zainab Plt Count MPV Immature Gran % (Auto) Neut % (Auto) Lymph % (Auto) [place] % (Auto) Eos % (Auto) Baso % (Auto) Absolute Neuts (auto) Absolute Lymphs (auto) Nucleated RBC % Toxic Granulation Sodium Potassium Chloride Carbon Dioxide Anion Gap BUN Creatinine Estim Creat Clear Calc Est GFR (MDRD) Non-Af BUN/Creatinine Ratio Glucose Lactic Acid Calcium Magnesium Urine Color Yellow Urine Clarity Cloudy Urine pH 5.0 Ur Specific [place] 1.015 Urine Protein TNP Urine Glucose (UA) Normal Urine Ketones Negative Urine Occult Blood 250 H Urine Nitrite Negative Urine Bilirubin Negative Urine Urobilinogen Normal Ur Leukocyte Esterase 500 H Urine RBC 0 SEEN Urine WBC >100 SEEN Ur Squamous Epith Cells 5-10 SEEN Urine Bacteria 0 SEEN Coarse Granular Casts 5-10 SEEN Urine Mucus 0 SEEN U Random Total Protein Radiography Diagnostic Testing: Clinical Impression(s) from Imaging Studies Abdomen/Pelvis CT 10/16/24 16:20 IMPRESSION: Edematous and enlarged right kidney with mild perinephric stranding, underlying infection can not be excluded. Moderate to severe right hydronephrosis, no obstructing stone. However, noted again is a lobular hyperattenuating region within the right renal pelvis, differentials would include hematoma versus neoplasm. Reading [facility] Management Discussion w/another healthcare provider: Hospitalist and Clinical Professor (Urology, Dr. Rocio Cisneros) Discharge Plan Dx/Rx/DC Orders Clinical Impression: Hydronephrosis, UTI (urinary tract infection), Hypokalemia, Hypomagnesemia, Lactic acidosis, Left flank pain Disposition Disposition: Acute Care Hospital [facility]
[2024-10-16 16:33] LABS: Anion Gap 21 (5-15); BUN 16 mg/dL (4-19); BUN/Creat Ratio 8.9 RATIO (10-20); Calcium,Total 7.3 mg/dL (7.6-11.0); Carbon Dioxide 20.9 mmol/L (21.0-32.0); Chloride 83 mmol/L (98-108); EST Glomerular Filtration Rate 31 (>60); Estimated Creatinine Clearance 29.44 ml/min (50-250); Glucose 135 mg/dL (70-99); Potassium 2.8 mmol/L (3.3-5.1); Sodium Level 125 mmol/L (133-145)
[2024-10-16 16:35] LABS: Toxic Granulation 1+
[2024-10-16] MEDS: 0.9% Normal Saline (1000mL) 1,000 ML 1000 ML IV (16:49)
[2024-10-16] MEDS: Potassium Chloride Oral Tablet 20 MEQ 40 MEQ PO (17:33)
[2024-10-16 17:53] LABS: Bacteria 0 SEEN /hpf (None Seen); Mucous, Urine 0 SEEN /hpf (<or=2+); Red Blood Cells-Urine 0 SEEN /hpf (0-5)
[2024-10-16 18:05] LABS: Color, Urine Yellow (Yellow); Glucose, Dipstick Normal (Normal); Ketone-Dipstick Negative (Negative); Leukocyte Esterase-Dipstick 500 /ul (Negative); Nitrite-Dipstick Negative (Negative); Occult Blood-Urine 250 /ul (Negative); Specific Gravity, Urine 1.015 (1.002-1.030); Urine Bilirubin Dipstick Negative (Negative); Urine Clarity Cloudy (Clear); Urine Urobilinogen Normal (Normal)
[2024-10-16 18:12] LABS: Coarse Granular Cast 5-10 SEEN /lpf (0-5 /lpf); White Blood Cells >100 SEEN /hpf (0-5)
[2024-10-16 18:13] LABS: Squamous Epithelial Cells - UA 5-10 SEEN /hpf (5-10)
[2024-10-16 18:33] LABS: Magnesium 0.7 mg/dL (1.5-2.2)
[2024-10-16] MEDS: Ceftriaxone 2 GM in 0.9% Normal Saline (50mL MB+) 50 ML IV (18:48)
--- NOTE | 2024-10-16 18:48 | PCM.HP.STD ---
HPI - General General Date of Admission: 10/16/24 Date of Service: 10/16/24 Chief Complaint: L flank pain, hesitancy, frequency. HPI Narrative The patient is a 64 y/o F w/ PMHx: EtOH abuse (~2-3 equivalent rum/coke), HTN, HLD, Diabetes mellitus type II with chronic neuropathy, Chronic anemia, Suspected CKD stage III unclear subtype but uncertain, Tobacco use, recent admission 08/27/2024-08/30/2024 evaluated for sepsis, suspected UTI, acute kidney injury with final urine culture following discharge with not marked growth with gram-negative mauricio lactose embroidery patternmaker less than the thousand, gram-positive cocci possible enterococcal species thousand to 10,000 colony-forming units with CT abdomen pelvis at that time with edematous right kidney with perirenal fat stranding suggesting inflammation, moderate right hydronephrosis, lobulated area of soft tissue attenuation the right renal pelvis with inability to exclude blood clot versus uroepithelial neoplasm with renal ultrasound notable for primarily moderate degree of right hydronephrosis who now re-presents to the [facility] ED on 10/16/24 with history of UTI type symptoms with left flank discomfort persistent for the last 5 to 7 days evaluated urgent care with referral of the ED given discomfort with urinary frequency, hesitancy and subjective fever but no chills nor any recent nausea or emesis or diarrhea. Workup in the ED included T90.2, heart rate 130, BP 132/82, respiratory rate 18, 98% on room air with most recent repeat vitals T98.2, heart rate 96, BP 130/67, respiratory rate 16, 99% on room air, CBC with WBC 17.9, hemoglobin 10.4, MCV 92.6, platelet 142 with left shift and lymphopenia, CMP with sodium 125, potassium 2.8 with component of hemolysis present thus likely even lower, chloride 83, carbon dioxide 20.9, anion gap 21, BUN/creatinine 16/1.80, GFR 31, initial lactic acid 3.0, magnesium 0.7 CT abdomen and pelvis without contrast with edematous enlarged right kidney with mild perinephric stranding unable to rule out underlying infection, moderate to severe right hydronephrosis with no obstructing stone with again noted lobular hypoattenuating region within the right renal pelvis with differentials including hematoma versus neoplasm although again this was not noted on recent renal ultrasound, urinalysis with cloudy appearing urine, specific cavity 1.015, occult blood 250, negative nitrite, leukocyte Estrace with 500, urine WBCs greater than 100 with no urine bacteria. In the ED patient ministered 1 L normal saline, Rocephin 2 g IV x 1, as well as potassium chloride 40 mill equivalent p.o. x 1. PFSH Medical History Chronic painful diabetic neuropathy CKD (chronic kidney disease), stage III Tobacco use Chronic anemia Diabetes mellitus, type 2 HLD (hyperlipidemia) Hypertension Home Medications ?Medication ?Instructions ?Recorded ?Last Taken ?Type atorvastatin 20 mg tablet 20 mg PO DAILY cholesterol 08/27/24 10/15/24 History metformin 500 mg tablet 500 mg PO DAILY diabetes 08/27/24 10/15/24 History metoprolol tartrate 50 mg tablet 50 mg PO BID blood pressure 08/27/24 10/15/24 History albuterol sulfate 90 mcg/actuation 2 puff inhalation Q6H PRN wheezing 10/16/24 Unknown History aerosol inhaler hydrochlorothiazide 12.5 mg tablet 12.5 mg PO DAILY 10/16/24 10/15/24 History Allergy/AdvReac Type Severity Reaction Status Date / Time Sulfa (Sulfonamide Allergy Severe Angioedema Verified 10/16/24 15:33 Antibiotics) Family History (Updated 10/16/24 @ 19:[address] Renae Pyle MD) Mother Hypertension Diabetes Father Hypertension Surgical History (Updated 10/16/24 @ 19:[address] Renae Pyle MD) No history of previous surgery Social History (Updated 10/16/24 @ 19:[address] Renae Pyle MD) household members: none Smoking Status: Current every day smoker tobacco type: cigarettes Smoking packs per day: 0.75 Smoking cigarettes per day: 15.0 alcohol intake: current alcohol intake frequency: 3 or more drinks per day Alcohol type: hard liquor details: The equivalent of ~ 2-3 rum+coke daily. substance use type: does not use ROS ROS Narrative Admission Review of Systems: CONSTITUTIONAL: No weight loss, + subjective fever, weakness or fatigue. HEENT: Eyes: No visual loss, blurred vision, double vision or yellow sclerae. Ears, Nose, Throat: No hearing loss, sneezing, congestion, runny nose or sore throat. SKIN: No rash or itching, lesions, wounds. CARDIOVASCULAR: No chest pain, chest pressure or chest discomfort, palpitations, edema, orthopnea, syncopal events. RESPIRATORY: No shortness of breath, cough or sputum, wheezing, hemoptysis. GASTROINTESTINAL: No anorexia, nausea, vomiting or diarrhea, abdominal pain, melena, BRBPR. GENITOURINARY: + Flank pain reported left primarily, hesitancy, frequency. No dysuria, retention. NEUROLOGICAL: No headache, dizziness, syncope, paralysis, ataxia, numbness or tingling in the extremities, focal weakness, change in bowel or bladder control, seizure. MUSCULOSKELETAL: + muscle, back pain, joint pain or stiffness. HEMATOLOGIC: + Chronic anemia. No marked history of bleeding or bruising. LYMPHATICS: No enlarged nodes. No history of splenectomy. PSYCHIATRIC: No history of depression or anxiety. ENDOCRINOLOGIC: No reports of sweating, cold or heat intolerance. No polyuria or polydipsia. ALLERGIES: + History of angioedema. Vital Signs Vital Signs Vital Signs: 10/16/24 15:29 10/16/24 15:32 10/16/24 16:32 Temperature 98.2 F 98.2 F 98.2 F Temperature Source Oral Oral Oral Pulse Rate 130 H 130 H 98 Respiratory Rate 18 16 18 Blood Pressure 132/82 H 132/82 H 132/82 H Blood Pressure Mean 98 98 98 Pulse Ox 130 98 99 Oxygen Delivery Method Room Air Room Air Room Air 10/16/24 17:00 10/16/24 17:28 10/16/24 17:57 Temperature 98.2 F 98.2 F Temperature Source Oral Oral Pulse Rate 98 96 Respiratory Rate 18 16 Blood Pressure 131/82 H 131/82 H 130/67 H Blood Pressure Mean 98 98 88 Pulse Ox 99 99 Oxygen Delivery Method Room Air Room Air Weight Weight: 149 lb Body Mass Index (BMI) 25.5 Results Lab / Micro Data 10/16/24 15:40 10/16/24 15:40 Labs: Laboratory Results - last 24 hr 10/16/24 12:30: U Random Total Protein 357.0 H 10/16/24 15:40: WBC 17.9 H, RBC 3.10 L, Hgb 10.4 L, Hct 28.7 L, MCV 92.6, MCH 33.5 H, MCHC 36.2 H, RDW Std Deviation 64.7 H, RDW Coeff of Zainab 19.1 H, Plt Count 142 L, MPV 9.6, Immature Gran % (Auto) 4.100 H, Neut % (Auto) 86.7 H, Lymph % (Auto) 3.3 L, [place] % (Auto) 5.0, Eos % (Auto) 0.1, Baso % (Auto) 0.8, Absolute Neuts (auto) 15.5 H, Absolute Lymphs (auto) 0.59 L, Nucleated RBC % 0, Toxic Granulation 1+, Sodium 125 L, Potassium 2.8 L, Chloride 83 L, Carbon Dioxide 20.9 L, Anion Gap 21 H, BUN 16, Creatinine 1.80 H, Estim Creat Clear Calc 29.44 L, Est GFR (MDRD) Non-Af 31 L, BUN/Creatinine Ratio 8.9 L, Glucose 135 H, Calcium 7.3 L, Magnesium 0.7 L* 10/16/24 17:15: Lactic Acid 3.0 H* 10/16/24 17:30: Urine Color Yellow, Urine Clarity Cloudy, Urine pH 5.0, Ur Specific [place] 1.015, Urine Protein TNP, Urine Glucose (UA) Normal, Urine Ketones Negative, Urine Occult Blood 250 H, Urine Nitrite Negative, Urine Bilirubin Negative, Urine Urobilinogen Normal, Ur Leukocyte Esterase 500 H, Urine RBC 0 SEEN, Urine WBC >100 SEEN, Ur Squamous Epith Cells 5-10 SEEN, Urine Bacteria 0 SEEN, Coarse Granular Casts 5-10 SEEN, Urine Mucus 0 SEEN Imaging Radiology Impression Abdomen/Pelvis CT 10/16/24 16:20 IMPRESSION: Edematous and enlarged right kidney with mild perinephric stranding, underlying infection can not be excluded. Moderate to severe right hydronephrosis, no obstructing stone. However, noted again is a lobular hyperattenuating region within the right renal pelvis, differentials would include hematoma versus neoplasm. Reading Location: [facility] Assessment & Plan Assessment/Plan (1) Acute pyelonephritis: (2) Hydronephrosis: PLAN: Plan The patient is a 64 y/o F w/ PMHx: EtOH abuse (~2-3 equivalent rum/coke), HTN, HLD, Diabetes mellitus type II with chronic neuropathy, Chronic anemia, Suspected CKD stage III unclear subtype but uncertain, Tobacco use, recent admission 08/27/2024-08/30/2024 evaluated for sepsis, suspected UTI, acute kidney injury with final urine culture following discharge with not marked growth with gram-negative mauricio lactose embroidery patternmaker less than the thousand, gram-positive cocci possible enterococcal species thousand to 10,000 colony-forming units with CT abdomen pelvis at that time with edematous right kidney with perirenal fat stranding suggesting inflammation, moderate right hydronephrosis, lobulated area of soft tissue attenuation the right renal pelvis with inability to exclude blood clot versus uroepithelial neoplasm with renal ultrasound notable for primarily moderate degree of right hydronephrosis who now re-presents to the [facility] ED on 10/16/24 with history of UTI type symptoms with left flank discomfort persistent for the last 5 to 7 days evaluated urgent care with referral of the ED given discomfort with urinary frequency, hesitancy and subjective fever but no chills nor any recent nausea or emesis or diarrhea. #1. Concern for acute right-sided pyelonephritis with notable pyorrhea (although pain on the left flank of note) but no marked bacterial growth noted on urinalysis with worsening now moderate to severe right hydronephrosis with no obstructive stone evidence with persistently evident lobular hypoattenuating region within the right renal pelvis of unclear etiology with questionable hematoma versus neoplasm, uncertain: Will admit to [facility] given stable vital signs, UA upon ED evaluation remarkable, pending UCx, continue IVFs, monitor I/Os, continue IV cefepime given recent prolonged hospitalization w/ transition as able pending sensitivities and speciation. Urology consulted given worsening appearance and unclear exact etiology of incidentally noted hematoma versus neoplasm. Bld cx x 2 obtained in the ED. #2. Acute hyponatremia, hypochloremia, hypovolemic component: Admission BMP with sodium 125, chloride 83, will continue aggressive hydration and repeat CMP in AM. #3. Acute thrombocytopenia, suspect reactive secondary to acute presentation #1: Admission platelets 142, previous labs normal, will continue to trend CBC, chemoprophylaxis cautiously. #4. Hypokalemia with significant hypomagnesemia: Admission K+ 2.8, magnesium level 0.7. Supplementation given, repeat level of potassium and magnesium this evening following supplementation as well as in AM. #5. Chronic Kidney Disease Stage III, unclear subtype per GFR trending although not a lot of lab comparisons available thus uncertain exact staging: Admission BUN/Cr 16/1.0, GFR 31, baseline renal function most recently 08/29/2024 creatinine 1.59 but unclear exact baseline with recent GIANCARLO admission with noted 08/27/2024 creatinine 3.3, repeat BMP in AM to further elucidate. #6. Tobacco Abuse: Encouraged cessation, inpatient consultation per RT, NR if desired. #7. Chronic normocytic anemia: Admission hemoglobin 10.4, MCV 92.6, baseline hemoglobin has been 8-10 range, more recently 08/29/2024 hemoglobin 8.1, continue to trend CBC. #8. Diabetes mellitus type II with chronic neuropathy: Hold oral home regimen, ADA diet, accu checks w/ ISS, continue home gabapentin regimen. #9. Hypertension: Continue home regimen including metoprolol with hold parameters as needed, PRN hydralazine. #10. Hyperlipidemia: Will continue patient on statin therapy. #11. EtOH Abuse: Patient notes routine consumption of the equivalent of 2-3 rum and Cokes per day. Will maintain on CIWA protocol, MVI, thiamine and folic acid. Encouraged decrease and discussed when absolute sobriety should be the direction. Mag low and being supplemented now, phos pending. #12. DVT prophylaxis: SCDs pending urology evaluation given #1 as noted. #13. CODE status: Patient has not had healthcare preparatory or living will in place. Discussed CODE status at length including difference between FULL code, DNR-CCA and DNR-CC status. Following discussions about the differences in these status, requested Full Code status. Advanced Care Planning Face to Face Time: 16 minutes. Charges/Coding Visit Charges Inpatient E&M: 27523 Init Hosp L3 Procedures Hospitalists Procedures: 58860 Advncd Care Plan 30 Min
--- NOTE | 2024-10-16 19:30 | CASEMGMT ---
Care Management Face to Face with patient for initial transition planning/care coordination assessment in the ED. This life underwriter introduced self and role at [facility]. Patient alert and oriented. Patient willing to participate in assessment and is able to answer all questions appropriately. Care providers, pharmacy, and demographics verified. Admitting Diagnosis: Acute pyelonephritis, Hydronephrosis Other diagnosis history: Chronic painful diabetic neuropathy, CKD stage III, Tobacco use, Chronic anemia, Diabetes mellitus type 2, HLD, Hypertension PCP: [facility] Specialists: [facility] Preferred Pharmacy:[facility] Insurance: Medicare A Only Prescription Benefit: no, but uses [facility] when necessary. Living Will/HPOA: none, but would at least like information. LNOK: sonWilberto. daughterJennifer. Living Arrangements: lives alone in a 2-story home with 2 steps to enter; independent with all ADLs/IADLs. Transportation: patient drives self DME: glucometer and testing strips, blood pressure cuff HHC: none SNF/Rehab: none Community Resources: none Behavioral Health History: none Patient goals: Patient wishes to discharge home, denies need for home health care at this time. Patient denies any further needs or concerns at this time. Disposition Plan: admission to acute; RN CM/SW to follow for discharge planning needs that may arise. Chelsea Khan, SENIOR TERADATA DEVELOPER, PHYSICAL THERAPY DIRECTOR
[2024-10-16] MEDS: Magnesium Sulfate 4gm/100mL 4 GM/100 ML IV.SOLN. IV (19:37)
[2024-10-16 21:25] LABS: Reflex Lactate? Y
[2024-10-16] MEDS: 0.9% Normal Saline (1000mL) 1,000 ML 100 ML IV (22:00)
[2024-10-16] MEDS: Acetaminophen 325 MG Tablet 650 MG PO (22:21)
[2024-10-16] MEDS: Metoprolol Tartrate 50 MG Tablet PO (22:24)
[2024-10-17] VITALS (8 sets, daily range): BP systolic 89–146; BP diastolic 54–91; PULSE 65–82; RESP 16–18; TEMP 36.2–37.2; O2SAT 95–99; BMI 25.6
[2024-10-17] MEDS: oxyCODONE 5 MG Tablet PO ×2 (00:08→06:38)
[2024-10-17 00:32] LABS: Magnesium 2.1 mg/dL (1.5-2.2); Phosphorus 1.9 mg/dL (2.7-4.5)
[2024-10-17 00:50] LABS: Anion Gap 15 (5-15); BUN 19 mg/dL (4-19); BUN/Creat Ratio 10.7 RATIO (10-20); Calcium,Total 6.8 mg/dL (7.6-11.0); Chloride 88 mmol/L (98-108); Creatinine, Serum 1.74 mg/dL (0.70-1.20); EST Glomerular Filtration Rate 32 (>60); Estimated Creatinine Clearance 30.24 ml/min (50-250); Glucose 132 mg/dL (70-99); Potassium 2.5 mmol/L (3.3-5.1); Sodium Level 127 mmol/L (133-145)
[2024-10-17] MEDS: Potassium Phosphate 40 MM in 0.9% Normal Saline (500mL Bag) 500 ML 62.5 MM IV (02:46)
[2024-10-17 04:50] LABS: Absolute Lymphocyte Count 0.52 X10^3/uL (0.83-4.51); Absolute Neutrophil Count 8.4 X10^3/uL (2.0-7.7); Basophil# 0.05 X10^3/uL; Basophil% 0.5 % (0-1); Hematocrit 22.9 % (37-47); Hemoglobin 8.1 g/dL (12.0-15.0); Lymphocyte # 0.52 X10^3/ul (0.83-4.51); Lymphocyte % 5.3 % (19-41); Mean Corp Hgb Conc 35.4 g/dL (32-36); Mean Corpuscular Hgb 33.3 pg (27.0-32.0); Mean Corpuscular Volume 94.2 fL (81-99); Mean Platelet Vol. 9.7 fl (6.2-12.0); Monocyte# 0.76 X10^3/uL; Monocyte% 7.7 % (0-10); NRBC Flagged by Analyzer 0 % (0-5); Neutrophil # 8.35 X10^3/uL (2.7-7.7); Neutrophil % 85.2 % (47-70); POSITIVE COUNT YES; POSITIVE DIFFERENTIAL YES; POSITIVE MORPHOLOGY YES; Platelet Count 96 K/mm3 (150-450); RBC Distribution Width CV 18.7 % (11.6-14.6); RBC Distribution Width SD 65.5 fl (35.1-43.9); Red Blood Count 2.43 M/mm3 (4.2-5.4); White Blood Count 9.8 K/mm3 (4.4-11.0)
[2024-10-17 04:52] LABS: Differential Indicated SCAN CRITERIA MET
[2024-10-17 05:13] LABS: Anisocytosis 2+; Differential Comment SCANNED; Platelet Estimate MOD DEC (ADEQ)
[2024-10-17 06:11] LABS: Bedside Glucose 108 mg/dL (74-106)
[2024-10-17] MEDS: Dextrose 10%-Water 250 ML 999 ML IV (06:38)
[2024-10-17 07:15] LABS: ALB/GLOB Ratio 1.1 RATIO (0.9-2.4); AST(SGOT) 25 U/L (<=31); Alanine Aminotransfer ALT/SGPT 10 U/L (<=34); Albumin, Serum 2.8 g/dL (3.4-4.8); Alkaline Phosphatase 71 U/L (35-104); Anion Gap 15 (5-15); BUN 21 mg/dL (4-19); BUN/Creat Ratio 11.5 RATIO (10-20); Calcium,Total 6.7 mg/dL (7.6-11.0); Carbon Dioxide 22.8 mmol/L (21.0-32.0); Chloride 91 mmol/L (98-108); Creatinine, Serum 1.79 mg/dL (0.70-1.20); EST Glomerular Filtration Rate 31 (>60); Estimated Creatinine Clearance 29.65 ml/min (50-250); Globulin 2.6 g/dL (2.2-4.2); Glucose 111 mg/dL (70-99); Potassium 2.5 mmol/L (3.3-5.1); Protein, Total 5.4 g/dL (5.9-8.4); Sodium Level 128 mmol/L (133-145); Total Bilirubin 0.36 mg/dL (0.00-1.30)
--- NOTE | 2024-10-17 07:50 | PCM.PN.HOSP ---
Reason for Visit Reason for Visit: Diagnoses Acute pyelonephritis (10/16/24) Unspecified hydronephrosis (10/16/24) Objective Data Objective Data Vital Signs: Vital Signs Temp Pulse Resp BP Pulse Ox O2 Del Method 98.4 F 91 16 148/67 H 98 Room Air 10/16/24 21:00 10/16/24 22:24 10/16/24 21:00 10/16/24 22:24 10/16/24 21:00 10/17/24 02:00 Oxygen Delivery Method Room Air Weight: 149 lb 7.574 oz Body Mass Index (BMI) 25.6 Intake & Output: Intake and Output for Last 24 Hours 10/15/24 10/16/24 10/17/24 23:59 23:59 23:59 Intake Total 1150 / 1400 951.67 / 951.67 Balance 1150 / 1400 951.67 / 951.67 Lab / Micro Data 10/17/24 03:54 10/17/24 03:54 Labs: Laboratory Results - last 24 hr 10/16/24 12:30: U Random Total Protein 316.0 H 10/16/24 15:40: WBC 17.9 H, RBC 3.10 L, Hgb 10.4 L, Hct 28.7 L, MCV 92.6, MCH 33.5 H, MCHC 36.2 H, RDW Std Deviation 64.7 H, RDW Coeff of Zainab 19.1 H, Plt Count 142 L, MPV 9.6, Immature Gran % (Auto) 4.100 H, Neut % (Auto) 86.7 H, Lymph % (Auto) 3.3 L, [place] % (Auto) 5.0, Eos % (Auto) 0.1, Baso % (Auto) 0.8, Absolute Neuts (auto) 15.5 H, Absolute Lymphs (auto) 0.59 L, Nucleated RBC % 0, Toxic Granulation 1+, Sodium 125 L, Potassium 2.8 L, Chloride 83 L, Carbon Dioxide 20.9 L, Anion Gap 21 H, BUN 16, Creatinine 1.80 H, Estim Creat Clear Calc 29.44 L, Est GFR (MDRD) Non-Af 31 L, BUN/Creatinine Ratio 8.9 L, Glucose 135 H, Calcium 7.3 L, Magnesium 0.7 L* 10/16/24 17:15: Lactic Acid 3.0 H* 10/16/24 17:30: Urine Color Yellow, Urine Clarity Cloudy, Urine pH 5.0, Ur Specific [place] 1.015, Urine Protein TNP, Urine Glucose (UA) Normal, Urine Ketones Negative, Urine Occult Blood 250 H, Urine Nitrite Negative, Urine Bilirubin Negative, Urine Urobilinogen Normal, Ur Leukocyte Esterase 500 H, Urine RBC 0 SEEN, Urine WBC >100 SEEN, Ur Squamous Epith Cells 5-10 SEEN, Urine Bacteria 0 SEEN, Coarse Granular Casts 5-10 SEEN, Urine Mucus 0 SEEN 10/16/24 21:55: Lactic Acid 2.0 10/16/24 22:28: POC Glucose 108 H 10/16/24 23:34: Sodium 127 L, Potassium 2.5 L*, Chloride 88 L, Carbon Dioxide 23.0, Anion Gap 15, BUN 19, Creatinine 1.74 H, Estim Creat Clear Calc 30.24 L, Est GFR (MDRD) Non-Af 32 L, BUN/Creatinine Ratio 10.7, Glucose 132 H, Calcium 6.8 L, Phosphorus 1.9 L, Magnesium 2.1 10/17/24 03:54: WBC 9.8, RBC 2.43 L, Hgb 8.1 L, Hct 22.9 L, MCV 94.2, MCH 33.3 H, MCHC 35.4, RDW Std Deviation 65.5 H, RDW Coeff of Zainab 18.7 H, Plt Count 96 L, MPV 9.7, Immature Gran % (Auto) 1.300 H, Neut % (Auto) 85.2 H, Lymph % (Auto) 5.3 L, [place] % (Auto) 7.7, Eos % (Auto) 0.0, Baso % (Auto) 0.5, Absolute Neuts (auto) 8.4 H, Absolute Lymphs (auto) 0.52 L, Nucleated RBC % 0, Differential Comment SCANNED, Platelet Estimate MOD DEC, Anisocytosis 2+, Sodium 128 L, Potassium 2.5 L*, Chloride 91 L, Carbon Dioxide 22.8, Anion Gap 15, BUN 21 H, Creatinine 1.79 H, Estim Creat Clear Calc 29.65 L, Est GFR (MDRD) Non-Af 31 L, BUN/Creatinine Ratio 11.5, Glucose 111 H, Calcium 6.7 L, Total Bilirubin 0.36, AST 25, ALT 10, Alkaline Phosphatase 71, Total Protein 5.4 L, Albumin 2.8 L, Globulin 2.6, Albumin/Globulin Ratio 1.1 Radiography Diagnostic Testing: Radiology Impression Abdomen/Pelvis CT 10/16/24 16:20 IMPRESSION: Edematous and enlarged right kidney with mild perinephric stranding, underlying infection can not be excluded. Moderate to severe right hydronephrosis, no obstructing stone. However, noted again is a lobular hyperattenuating region within the right renal pelvis, differentials would include hematoma versus neoplasm. Reading [facility] Physical Exam Narrative Seen and examined. Patient is stated she has 3 weeks symptoms of left lower quadrant left lower flank pain. She also states she sometimes a burning pain in the urine along with increased frequency and urgency. She measured temperature but it was 98.5 Fahrenheit. Physical exam General: Alert, Oriented x3, Cooperative HEENT: Atraumatic, PERRLA, EOMI, Normocephalic Oral: No Gingival or Mucosal Lesions/ Ulcerations Neck: Supple, No JVD, Negative Carotid Bruits Chest wall/Lungs: Air entry diminished in bilateral lung bases. No crepitation/rhonchi Cardiovascular: Regular rate, Regular Rhythm, Normal S1, Normal S2, No M/G/R Abdomen: Bowel Sounds Present, Soft, mild tenderness in the left lower flank and left lower quadrant. : No dysuria. No renal angle tenderness. No suprapubic tenderness. Tenderness around left upper back and lower thoracic/rib cage muscles Extremities: No edema, Capillary Refill Less than 3 Seconds Skin: No rashes, No breakdown Musculoskeletal: No Tenderness to Palpation of Joints or Extremities Neurological: Cranial nerves II-XII grossly intact, DTR 2+/4. No acute focal neurological deficit. Psych/Mental Status: Flat Assessment & Plan Assessment/Plan (1) Acute pyelonephritis: (2) Hydronephrosis: PLAN: Plan The patient is a 64 y/o F is being admitted for left flank pain for about 1 week. She denied history of urinary frequency hesitancy, subjective fever and chills. CT abdomen individually reviewed #1. Left upper flank, not due to pyelonephritis but has a right renal concerning mass: CT abdomen reviewed. Right kidney edematous, lobular, hyperattenuating region within right renal pelvis, chronic with perinephric stranding with moderate to severe hydronephrosis, no obstructing stone with features concerning for renal mass. Discussed with her Urologist. Her left upper flank and lower thoracic pain seems more musculoskeletal. No significant tenderness in left lower quadrant. No suprapubic tenderness. Patient was recently admitted and discharged on August 30, 2024 on antibiotic ampicillin after treatment for sepsis due to UTI and GIANCARLO. urine culture grew GNR lactose finished yarn examiner, less than 1000 colonies and possible Enterococcus, 1002 10,000 colonies Blood cultures x 2 urine culture ordered. Urologist consulted. Currently patient on IV cefepime. #2. Acute hyponatremia, hypochloremia, hypovolemic component probably due to chronic alcohol use: Patient is stated that she drinks 1 shot of from but seems more than what she stated. She also having 1 or 2 times loose bowel movement, watery consistency. No blood. IV fluid replacement. She also had couple of vomiting clear gastric last 1 week. Admission BMP with sod. ium 125, chloride 83 repeat shows sodium 128. Anion gap 15. #3. Acute thrombocytopenia: Platelet count was about 384 in ferritin 25. Platelet count dropped from 142-96. The reason is unclear. Patient on antibiotic. She also drinks alcohol. #4. Hypokalemia, hypophosphatemia with significant hypomagnesemia: Admission K+ 2.8, magnesium level 0.7. IV electrolyte potassium, phosphate and magnesium replaced. Repeat magnesium was 2.1 #5. Chronic Kidney Disease Stage IIIb, : Admission BUN/creatinine 16/1.8.Her creatinine was 3.3 in August 2024 #6. Chronic cigarette smoking and marijuana use: Tobacco cessation advised. Nicotine replacement offered #7. Chronic normocytic anemia: Admission hemoglobin 10.4, MCV 92.6, baseline hemoglobin has been 8-10 range, more recently 08/29/2024 hemoglobin 8.1, continue to trend CBC. #8. Diabetes mellitus type II with chronic neuropathy: Hold oral home regimen, ADA diet, accu checks w/ ISS, continue home gabapentin regimen. #9. Hypertension: Continue home regimen including metoprolol with hold parameters as needed, PRN hydralazine. #10. Hyperlipidemia: Will continue patient on statin therapy. #11. EtOH Abuse: Patient notes routine consumption of the equivalent of 2-3 rum and Cokes per day. Will maintain on CIWA protocol, MVI, thiamine and folic acid. Encouraged decrease and discussed when absolute sobriety should be the direction. Mag low and being supplemented now, phos pending. #12. DVT prophylaxis: SCDs pending urology evaluation given #1 as noted. #13. CODE status: Patient has not had healthcare preparatory or living will in place. Discussed CODE status at length including difference between FULL code, DNR-CCA and DNR-CC status. Following discussions about the differences in these status, requested Full Code status.
[2024-10-17 08:03] LABS: Bedside Glucose 70 mg/dL (74-106)
[2024-10-17 08:03] LABS: Bedside Glucose 140 mg/dL (74-106)
--- NOTE | 2024-10-17 08:37 | CON.PCM_ITS ---
Assessment & Plan Assessment/Plan (1) Left flank pain: PLAN: I feel that the left flank pain is not likely secondary to a urologic etiology. She does consume a significant amount of alcohol per history and has been dealing also with diarrhea. There may be some gastritis involved as well. There is no obstruction of this kidney and her urine culture is pending. (2) Hydronephrosis: PLAN: No plan for intervention as this is likely related to a right sided malignancy versus clot and can be evaluated by her urologist. It has been present for at least 2 months (3) Right renal mass: PLAN: Question collecting system mass, refer to [facility] urology for full evaluation and management after discharge from this admission PLAN: Plan Await urine culture results, antibiotic coverage as appropriate Abdominal pain per primary service Will need thorough urologic evaluation and management after discharge, please send notes to [facility] which is where she would like to follow-up Available as needed for this admission HPI Consult Data Date of Consult: 10/17/24 HPI Narrative Reason for Consultation: Renal mass, hydronephrosis, renal insufficiency, left flank pain HPI Narrative: KRISTY MOJICA, is a 64 F who presented to the emergency room with left flank pain. She has been following with [facility] urology for urinary tract infections. She was not aware of the right sided renal issues including hydronephrosis, mass with suspicion of neoplasm. Her pain is left lower abdominal and feels better when she pushes or lays on it. [facility] Medical History (Updated 10/17/24 @ 08:[address] Rocio Cisneros MD) Right renal mass Chronic painful diabetic neuropathy CKD (chronic kidney disease), stage III Tobacco use Chronic anemia Diabetes mellitus, type 2 HLD (hyperlipidemia) Hypertension Home Medications ?Medication ?Instructions ?Recorded ?Last Taken ?Type atorvastatin 20 mg tablet 20 mg PO DAILY cholesterol 0 08/27/24 10/15/24 History metformin 500 mg tablet 500 mg PO DAILY diabetes 10/15/24 History metoprolol tartrate 50 mg tablet 50 mg PO BID blood pr essure 08/27/24 10/15/24 History albuterol sulfate 90 mcg/actuation 2 puff inhalation Q 6H PRN wheezing 10/16/24 Unknown History aerosol inhaler hydrochlorothiazide 12.5 mg tablet 12.5 mg PO DAILY 10/15/24 History Allergy/AdvReac Type Severity Reaction Status Date / Time Sulfa (Sulfonamide Allergy Severe Angioedema Verified 10/16/24 15:33 Antibiotics) Family History (Updated 10/16/24 @ 19:[address] Renae Pyle MD) Mother Hypertension Diabetes Father Hypertension Surgical History (Updated 10/16/24 @ 19:[address] Renae Pyle MD) No history of previous surgery Social History (Updated 10/16/24 @ 19:[address] Renae Pyle MD) household members: none Smoking Status: Current every day smoker tobacco type: cigarettes Smoking packs per day: 0.75 Smoking cigarettes per day: 15.0 alcohol intake: current alcohol intake frequency: 3 or more drinks per day Alcohol type: hard liquor details: The equivalent of ~ 2-3 rum+coke daily. substance use type: does not use ROS Constitutional Constitutional: Reports systems reviewed and no addt'l complaints, except as documented Eyes Eyes: Reports systems reviewed and no addt'l complaints, except as documented ENT HEENT: Reports systems reviewed and no addt'l complaints, except as documented Cardiovascular Cardiovascular: Denies chest pain or dyspnea Respiratory/Chest Respiratory/Chest: Denies chest congestion or cough Gastrointestinal Gastrointestinal: Reports abdominal pain and diarrhea; Denies nausea Genitourinary Genitourinary: Reports abdominal discomfort, flank pain, urinary frequency and urinary hesitancy; Denies dysuria Musculoskeletal Musculoskeletal: Reports systems reviewed and no addt'l complaints, except as documented Integumentary Integumentary: Reports systems reviewed and no addt'l complaints, except as documented Neurologic Neurologic: Reports systems reviewed and no addt'l complaints, except as documented Psychiatric Psychiatric: Reports systems reviewed and no addt'l complaints, except as documented Endocrine Endocrinology: Reports systems reviewed and no addt'l complaints, except as documented Hematologic/Lymphatic Hematologic/Lymphatic: Reports systems reviewed and no addt'l complaints, except as documented Allergic/Immunologic Allergic/Immunologic: Reports systems reviewed and no addt'l complaints, except as documented Physical Exam Const alert, oriented x3 and no apparent distress General Appearance: cooperative, comfortable and well kempt HEENT normocephalic, head/scalp atraumatic and external nose normal Eyes General Eye: normal appearance of both eyes Neck supple General: trachea midline Lymph Lymphatic: no lymphedema noted Chest inspection of chest normal Resp normal respiratory effort, normal air movement and no retractions Cardio regular rate GI soft to palpation Inspection: Negative for abdominal distention Palpation: soft and tender LUQ and other (Tenderness is on the left upper to mid quadrant and surrounds the left side into the left flank. It is not suprapubic.) Bladder / Kidney Exam: CVA tenderness left Back/Spine General Back: CVA tenderness left Extremity normal to inspection Skin no rashes or lesions noted, no jaundice, no petechiae and no mottling Neuro oriented x3 and CN's II-XII intact bilaterally Psych mental status grossly normal Lab / Micro Data 10/17/24 03:54 10/17/24 03:54 Labs: Laboratory Results - last 24 hr 10/16/24 12:30: U Random Total Protein 316.0 H 10/16/24 15:40: WBC 17.9 H, RBC 3.10 L, Hgb 10.4 L, Hct 28.7 L, MCV 92.6, MCH 33.5 H, MCHC 36.2 H, RDW Std Deviation 64.7 H, RDW Coeff of Zainab 19.1 H, Plt Count 142 L, MPV 9.6, Immature Gran % (Auto) 4.100 H, Neut % (Auto) 86.7 H, L ymph % (Auto) 3.3 L, [place] % (Auto) 5.0, Eos % (Auto) 0.1, Baso % (Auto) 0.8, A bsolute Neuts (auto) 15.5 H, Absolute Lymphs (auto) 0.59 L, Nucleated RBC % 0, Toxic Granulation 1+, Sodium 125 L, Potassium 2.8 L, Chloride 83 L, Carbon Dioxide 20.9 L, Anion Gap 21 H, BUN 16, Creatinine 1.80 H, Estim Creat Clear Calc 29.44 L, Est GFR (MDRD) Non-Af 31 L, BUN/Creatinine Ratio 8.9 L, Glucose 135 H, Calcium 7.3 L, Magnesium 0.7 L* 10/16/24 17:15: Lactic Acid 3.0 H* 10/16/24 17:30: Urine Color Yellow, Urine Clarity Cloudy, Urine pH 5.0, Ur Specific [place] 1.015, Urine Protein TNP, Urine Glucose (UA) Normal, Urine Ketones Negative, Urine Occult Blood 250 H, Urine Nitrite Negative, Urine Bilirubin Negative, Urine Urobilinogen Normal, Ur Leukocyte Esterase 500 H, Urine RBC 0 SEEN, Urine WBC >100 SEEN, Ur Squamous Epith Cells 5-10 SEEN, Urine Bacteria 0 SEEN, Coarse Granular Casts 5-10 SEEN, Urine Mucus 0 SEEN 10/16/24 21:55: Lactic Acid 2.0 10/16/24 22:28: POC Glucose 108 H 10/16/24 23:34: Sodium 127 L, Potassium 2.5 L*, Chloride 88 L, Carbon Dioxide 23.0, Anion Gap 15, BUN 19, Creatinine 1.74 H, Estim Creat Clear Calc 30.24 L, E st GFR (MDRD) Non-Af 32 L, BUN/Creatinine Ratio 10.7, Glucose 132 H, Calcium 6.8 L, Phosphorus 1.9 L, Magnesium 2.1 10/17/24 03:54: WBC 9.8, RBC 2.43 L, Hgb 8.1 L, Hct 22.9 L, MCV 94.2, MCH 33.3 H , MCHC 35.4, RDW Std Deviation 65.5 H, RDW Coeff of Zainab 18.7 H, Plt Count 96 L, MPV 9.7, Immature Gran % (Auto) 1.300 H, Neut % (Auto) 85.2 H, Lymph % (Auto) 5.3 L, [place] % (Auto) 7.7, Eos % (Auto) 0.0, Baso % (Auto) 0.5, Absolute Neuts (auto) 8.4 H, Absolute Lymphs (auto) 0.52 L, Nucleated RBC % 0, Differential Comment SCANNED, Platelet Estimate MOD DEC, Anisocytosis 2+, Sodium 128 L, P otassium 2.5 L*, Chloride 91 L, Carbon Dioxide 22.8, Anion Gap 15, BUN 21 H, C reatinine 1.79 H, Estim Creat Clear Calc 29.65 L, Est GFR (MDRD) Non-Af 31 L, BUN/Creatinine Ratio 11.5, Glucose 111 H, Calcium 6.7 L, Total Bilirubin 0.36, AST 25, ALT 10, Alkaline Phosphatase 71, Total Protein 5.4 L, Albumin 2.8 L, Globulin 2.6, Albumin/Globulin Ratio 1.1 10/17/24 06:27: POC Glucose 70 L 10/17/24 07:44: POC Glucose 140 H Micro: Microbiology 10/16/24 18:42 Blood Culture (Wb) - Anticubital Right Blood Culture - Preliminary 10/16/24 18:42 Blood Culture (Wb) - Left Wrist Blood Culture - Preliminary Imaging Radiology Impression Abdomen/Pelvis CT 10/16/24 16:20 IMPRESSION: Edematous and enlarged right kidney with mild perinephric stranding, underlying infection can not be excluded. Moderate to severe right hydronephrosis, no obstructing stone. However, noted again is a lobular hyperattenuating region within the right renal pelvis, differentials would include hematoma versus neoplasm. Reading Location: [facility] Imaging reviewed. There is no left hydronephrosis, urolithiasis, significant perinephric stranding or other evidence to suggest that her pain is secondary to a urologic etiology. The right kidney is very concerning, the bladder wall does appear thickened but is not necessarily distended and she does have a history of recurrent cystitis and diabetes.
[2024-10-17] MEDS: Thiamine Hydrochloride 100 MG Tablet PO (08:57)
[2024-10-17] MEDS: Metoprolol Tartrate 50 MG Tablet PO ×2 (08:57→21:09)
[2024-10-17] MEDS: Multivitamins,Ther W-Minerals Tablet 1 TABLET PO (08:58)
[2024-10-17] MEDS: Folic Acid 1 MG Tablet PO (08:58)
[2024-10-17] MEDS: Atorvastatin Calcium 20 MG Tablet PO (08:58)
[2024-10-17] MEDS: Acetaminophen 325 MG Tablet 650 MG PO (09:03)
[2024-10-17] MEDS: Cefepime HCl 2 GM in 0.9% Normal Saline (100mL MB+) 100 ML IV ×2 (09:18)
[2024-10-17] MEDS: KCL 40mEq in 0.9% NS 40 MEQ/1,000 ML IV.SOLN 125 MEQ IV (10:19)
[2024-10-17 11:22] LABS: Bedside Glucose 133 mg/dL (74-106)
[2024-10-17 16:59] LABS: Bedside Glucose 133 mg/dL (74-106)
--- NOTE | 2024-10-17 17:59 | PCM.HOSP.N ---
Hospitalist Note Blood cx positive of GNR in anaerobic bottle and GPC in cluster. Bacterial detection PCR is pending. IV antibioitc is changed to IV Vanco and Zosyn. Electrolytes recheck ordered. Discussed with CHRIS.
[2024-10-17 19:06] LABS: Anion Gap 16 (5-15); BUN 25 mg/dL (4-19); BUN/Creat Ratio 13.3 RATIO (10-20); Calcium,Total 6.7 mg/dL (7.6-11.0); Carbon Dioxide 20.3 mmol/L (21.0-32.0); Chloride 93 mmol/L (98-108); Creatinine, Serum 1.84 mg/dL (0.70-1.20); EST Glomerular Filtration Rate 30 (>60); Estimated Creatinine Clearance 28.84 ml/min (50-250); Glucose 138 mg/dL (70-99); Potassium 3.5 mmol/L (3.3-5.1); Sodium Level 129 mmol/L (133-145)
[2024-10-17] MEDS: Piperacil/Tazobactam 3.375 GM in 0.9% Normal Saline (50mL MB+) 50 ML IV (19:27)
[2024-10-17] MEDS: Vancomycin IV 1,000 MG/200 ML BAG 200 MG IV (20:11)
[2024-10-17 21:28] LABS: Bedside Glucose 145 mg/dL (74-106)
[2024-10-18] VITALS (7 sets, daily range): BP systolic 97–136; BP diastolic 66–78; PULSE 72–84; RESP 16–18; TEMP 36.7–36.8; O2SAT 95–100; BMI 26.9
[2024-10-18 06:16] LABS: Anion Gap 14 (5-15); BUN 23 mg/dL (4-19); BUN/Creat Ratio 13.6 RATIO (10-20); Calcium,Total 6.7 mg/dL (7.6-11.0); Chloride 95 mmol/L (98-108); Creatinine, Serum 1.68 mg/dL (0.70-1.20); EST Glomerular Filtration Rate 34 (>60); Estimated Creatinine Clearance 32.31 ml/min (50-250); Glucose 88 mg/dL (70-99); Magnesium 1.7 mg/dL (1.5-2.2); Sodium Level 129 mmol/L (133-145)
[2024-10-18] MEDS: Piperacil/Tazobactam 3.375 GM in 0.9% Normal Saline (50mL MB+) 50 ML IV ×3 (06:26→21:46)
[2024-10-18 06:51] LABS: Bedside Glucose 96 mg/dL (74-106)
--- NOTE | 2024-10-18 07:32 | PCM.RX.CS ---
Consult Antibiotic Management Pharmacy has been consulted to manage selected antibiotic: Vancomycin Type of Intervention Type of Consult: Follow-up Suspected Infection Suspected Infection: Bacteremia Labs Labs: Sodium 129 mmol/L (133-145) L 10/18/24 04:03 Potassium 3.0 mmol/L (3.3-5.1) L 10/18/24 04:03 Chloride 95 mmol/L (98-108) L 10/18/24 04:03 Carbon Dioxide 20.0 mmol/L (21.0-32.0) L 10/18/24 04:03 Anion Gap 14 (5-15) 10/18/24 04:03 BUN 23 mg/dL (4-19) H 10/18/24 04:03 Creatinine 1.68 mg/dL (0.70-1.20) H 10/18/24 04:03 Est GFR (MDRD) Non-Af 34 (>60) L 10/18/24 04:03 BUN/Creatinine Ratio 13.6 RATIO (10-20) 10/18/24 04:03 Glucose 88 mg/dL (70-99) 10/18/24 04:03 Microbiology Microbiology: Microbiology 10/16/24 17:30 Urine, Clean Catch Urine Culture - Final Klebsiella pneumoniae sp pneum 10/16/24 18:42 Blood Culture (Wb) - Left Wrist Blood Culture - Preliminary 10/16/24 18:42 Blood Culture (Wb) - Anticubital Right Blood Culture - Preliminary Pharmacy Plan for Drug Dosing Pharmacy Plan for Drug Dosing: New vancomycin started yesterday. Initial dose of 1000mg given, maintenance dose of 750mg Q24 started, first trough due 10/19/24 @ 1930. Goal trough 15-20. DAILY ASSESSMENT Current Vancomycin Dose: 750MG Q24 Number of Doses Received: 1 (1000MG) Current Renal Function: SCr 1.68 mgdL, CrCl 32 mL/min Renal Function Trend: slightly improvement Lab/Micro: BLOOD CX - GPC IN CLUSTERS Any Change in Vanc Plan: Yes, CrCl changed to 32 ml/min, dose adjusted to 1000mg per policy Pending Level: 10/19/24 @ 1930 Pharmacy Service will continue to monitor and adjust dosing as required.
[2024-10-18] MEDS: Metoprolol Tartrate 50 MG Tablet PO ×2 (08:19→21:45)
[2024-10-18] MEDS: Folic Acid 1 MG Tablet PO (08:20)
[2024-10-18] MEDS: Atorvastatin Calcium 20 MG Tablet PO (08:20)
[2024-10-18] MEDS: Multivitamins,Ther W-Minerals Tablet 1 TABLET PO (08:20)
[2024-10-18] MEDS: Thiamine Hydrochloride 100 MG Tablet PO (08:20)
[2024-10-18] MEDS: Potassium Chloride Oral Tablet 20 MEQ 40 MEQ PO ×2 (08:27→16:34)
[2024-10-18] MEDS: Sodium Chloride 1 GM Tablet 2 GM PO ×3 (08:27→21:45)
[2024-10-18] MEDS: Magnesium Chloride 64 MG Delay Rel.Tablet 128 MG PO ×2 (08:27→21:45)
[2024-10-18] MEDS: Acetaminophen 325 MG Tablet 650 MG PO (08:27)
[2024-10-18] MEDS: 0.9% Saline Lock 10 ML Syringe IV ×3 (08:31→20:09)
[2024-10-18 12:01] LABS: Bedside Glucose 128 mg/dL (74-106)
--- NOTE | 2024-10-18 14:56 | PN.HOSP_ITS ---
Reason for Visit Reason for Visit: Diagnoses Acute pyelonephritis (10/16/24) Unspecified hydronephrosis (10/16/24) Other specified disorders of kidney and ureter (10/16/24) Unspecified abdominal pain (10/16/24) Objective Data Objective Data Vital Signs: Vital Signs Temp Pulse Resp BP Pulse Ox O2 Del Method 98.2 F 72 16 97/66 98 Room Air 10/18/24 14:01 10/18/24 14:01 10/18/24 14:01 10/18/24 14:01 10/18/24 14:01 10/18/24 14:01 Oxygen Delivery Method Room Air Weight: 156 lb 15.506 oz Body Mass Index (BMI) 26.9 Intake & Output: Intake and Output for Last 24 Hours 10/16/24 10/17/24 10/18/24 23:59 23:59 23:59 Intake Total 1150 / 1400 3958.3333 / 3958.3333 830 / 830 Balance 1150 / 1400 3958.3333 / 3958.3333 830 / 830 Lab / Micro Data 10/17/24 03:54 10/18/24 04:03 Labs: Laboratory Results - last 24 hr 10/17/24 16:10: POC Glucose 133 H 10/17/24 18:15: Sodium 129 L, Potassium 3.5, Chloride 93 L, Carbon Dioxide 20.3 L, Anion Gap 16 H, BUN 25 H, Creatinine 1.84 H, Estim Creat Clear Calc 28.84 L, Est GFR (MDRD) Non-Af 30 L, BUN/Creatinine Ratio 13.3, Glucose 138 H, Calcium 6.7 L 10/17/24 21:08: POC Glucose 145 H 10/18/24 04:03: Sodium 129 L, Potassium 3.0 L, Chloride 95 L, Carbon Dioxide 20.0 L, Anion Gap 14, BUN 23 H, Creatinine 1.68 H, Estim Creat Clear Calc 32.31 L, Est GFR (MDRD) Non-Af 34 L, BUN/Creatinine Ratio 13.6, Glucose 88, Calcium 6.7 L, Phosphorus 3.0, Magnesium 1.7 10/18/24 06:31: POC Glucose 96 10/18/24 11:42: POC Glucose 128 H Micro: Microbiology 10/16/24 18:42 Blood Culture (Wb) - Anticubital Right Blood Culture - Preliminary GNR lactose customer support specialist 10/16/24 18:42 Blood Culture (Wb) - Left Wrist Blood Culture - Preliminary GNR lactose customer support specialist Staphylococcus species 10/16/24 17:30 Urine, Clean Catch Urine Culture - Final Klebsiella pneumoniae sp pneum Physical Exam Narrative Seen and examined. Her left upper/lower quadrant and left sided upper flank pain is resolved. She also did not have alcohol withdrawal symptoms. Electrolytes are low. Patient is stated she has 3 weeks symptoms of left lower quadrant left lower flank pain. She also states she sometimes a burning pain in the urine along with increased frequency and urgency. No fever. Blood cx positive of GNR in anaerobic bottle and GPC in cluster. Bacterial detection PCR is pending. IV antibioitc is changed to IV Vanco and Zosyn . Physical exam General: Alert, Oriented x3, Cooperative HEENT: Atraumatic, PERRLA, EOMI, Normocephalic Oral: No Gingival or Mucosal Lesions/ Ulcerations Neck: Supple, No JVD, Negative Carotid Bruits Chest wall/Lungs: Air entry diminished in bilateral lung bases. No crepitation/rhonchi Cardiovascular: Regular rate, Regular Rhythm, Normal S1, Normal S2, No M/G/R Abdomen: Bowel Sounds Present, Soft, mild tenderness in the left lower flank and left lower quadrant. : No dysuria. No renal angle tenderness. No suprapubic tenderness. No tenderness left upper back and lower thoracic/rib cage muscles Extremities: No edema, Capillary Refill Less than 3 Seconds Skin: No rashes, No breakdown Musculoskeletal: No Tenderness to Palpation of Joints or Extremities Neurological: Cranial nerves II-XII grossly intact, DTR 2+/4. No acute focal neurological deficit. Psych/Mental Status: Flat Assessment & Plan Assessment/Plan (1) Acute pyelonephritis: (2) Hydronephrosis: PLAN: Plan The patient is a 64 y/o F is being admitted for left flank pain for about 1 week. She denied history of urinary frequency hesitancy, subjective fever and chills. CT abdomen individually reviewed #1. Left upper flank, not due to pyelonephritis but has a right renal concerning mass: CT abdomen reviewed. Right kidney edematous, lobular, hyperattenuating region within right renal pelvis, chronic with perinephric stranding with moderate to severe hydronephrosis, no obstructing stone with features concerning for renal mass. Discussed with her Urologist. Her left upper flank and lower thoracic pain seems more musculoskeletal. No significant tenderness in left lower quadrant. No suprapubic tenderness. Patient was recently admitted and discharged on August 30, 2024 on antibiotic ampicillin after treatment for sepsis due to UTI and GIANCARLO. urine culture grew GNR lactose customer support specialist, less than 1000 colonies and possible Enterococcus, 1002 10,000 colonies Blood cultures x 2 urine culture ordered. Urologist consulted. Currently patient on IV cefepime. 10/18: Blood cx positive of GNR in anaerobic bottle and GPC in cluster. Bacterial detection PCR reported GNR lactose customer support specialist and staph species. Full culture pending. Empirically, IV antibioitc is changed to IV Vanco and Zosyn on 10/17. #2. Acute hyponatremia, hypochloremia, hypovolemic component probably due to chronic alcohol use: Patient is stated that she drinks 1 shot of from but seems more than what she stated. She also having 1 or 2 times loose bowel movement, watery consistency. No blood. IV fluid replacement. She also had couple of vomiting clear gastric last 1 week. Admission BMP with sod. ium 125, chloride 83 repeat shows sodium 128. Anion gap 15. 10/18: Sodium potassium, chloride and bicarb is still low. Anion gap 14 better. Asparagus Cutter consulted. Patient not responding to IV fluid normal saline therefore started on sodium tablet. Potassium supplemented. Hypomagnesemia and hypophosphatemia resolved. #3. Acute thrombocytopenia: Platelet count was about 384 in ferritin 25. Platelet count dropped from 142-96. The reason is unclear. Patient on antibiotic. She also drinks alcohol. 10/18: Platelet count mildly low from bacteremia. Patient does not look septic. Sepsis ruled out. #4. Hypokalemia, hypophosphatemia with significant hypomagnesemia: Admission K+ 2.8, magnesium level 0.7. IV electrolyte potassium, phosphate and magnesium replaced. Repeat magnesium was 2.1 #5. Chronic Kidney Disease Stage IIIb, : Admission BUN/creatinine 16/1.8.Her creatinine was 3.3 in August 202410/18: Creatinine improving 1.68. #6. Chronic cigarette smoking and marijuana use: Tobacco cessation advised. Nicotine replacement offered #7. Chronic normocytic anemia: Admission hemoglobin 10.4, MCV 92.6, baseline hemoglobin has been 8-10 range, more recently 08/29/2024 hemoglobin 8.1, continue to trend CBC. #8. Diabetes mellitus type II with chronic neuropathy: Hold oral home regimen, ADA diet, accu checks w/ ISS, continue home gabapentin regimen. #9. Hypertension: Continue home regimen including metoprolol with hold parameters as needed, PRN hydralazine. #10. Hyperlipidemia: Will continue patient on statin therapy. #11. EtOH Abuse: Patient notes routine consumption of the equivalent of 2-3 rum and Cokes per day. Will maintain on CIWA protocol, MVI, thiamine and folic acid. Encouraged decrease and discussed when absolute sobriety should be the direction. Mag low and being supplemented now, phos pending. #12. DVT prophylaxis: SCDs pending urology evaluation given #1 as noted. #13. CODE status: Patient has not had healthcare preparatory or living will in place. Discussed CODE status at length including difference between FULL code, DNR-CCA and DNR-CC status. Following discussions about the differences in these status, requested Full Code status. Charges/Coding Visit Charges Inpatient E&M: 00306 Subs Hosp L2
[2024-10-18 17:14] LABS: Bedside Glucose 131 mg/dL (74-106)
[2024-10-18] MEDS: Vancomycin IV 1,000 MG/200 ML BAG 200 MG IV (20:09)
[2024-10-18] MEDS: Insulin Lispro 100 UNIT/ML INSULN.PEN SC (21:49)
[2024-10-18 22:33] LABS: Bedside Glucose 174 mg/dL (74-106)
[2024-10-19] VITALS (7 sets, daily range): BP systolic 119–140; BP diastolic 67–78; PULSE 67–83; RESP 14–16; TEMP 36.4–37.4; O2SAT 93–100; BMI 27.0
[2024-10-19 05:29] LABS: Absolute Lymphocyte Count 0.88 X10^3/uL (0.83-4.51); Absolute Neutrophil Count 4.9 X10^3/uL (2.0-7.7); Basophil# 0.04 X10^3/uL; Basophil% 0.5 % (0-1); Eosinophil# 0.04 X10^3/uL; Eosinophils% 0.5 % (0-5); Hematocrit 22.3 % (37-47); Hemoglobin 7.8 g/dL (12.0-15.0); Lymphocyte # 0.88 X10^3/ul (0.83-4.51); Lymphocyte % 11.5 % (19-41); Mean Corpuscular Hgb 33.1 pg (27.0-32.0); Mean Corpuscular Volume 94.5 fL (81-99); Mean Platelet Vol. 9.9 fl (6.2-12.0); Monocyte# 1.53 X10^3/uL; Monocyte% 20.1 % (0-10); NRBC Flagged by Analyzer 0 % (0-5); Neutrophil # 4.93 X10^3/uL (2.7-7.7); Neutrophil % 64.6 % (47-70); POSITIVE DIFFERENTIAL YES; POSITIVE MORPHOLOGY YES; Platelet Count 101 K/mm3 (150-450); RBC Distribution Width CV 18.8 % (11.6-14.6); RBC Distribution Width SD 65.5 fl (35.1-43.9); Red Blood Count 2.36 M/mm3 (4.2-5.4); White Blood Count 7.6 K/mm3 (4.4-11.0)
[2024-10-19 05:36] LABS: Differential Indicated SCAN CRITERIA MET
[2024-10-19] MEDS: Piperacil/Tazobactam 3.375 GM in 0.9% Normal Saline (50mL MB+) 50 ML IV ×3 (06:12→21:39)
[2024-10-19] MEDS: Sodium Chloride 1 GM Tablet 2 GM PO ×3 (06:13→21:34)
[2024-10-19] MEDS: 0.9% Saline Lock 10 ML Syringe IV ×2 (06:13→21:35)
[2024-10-19 06:49] LABS: Bedside Glucose 104 mg/dL (74-106)
[2024-10-19 06:58] LABS: Anisocytosis 1+; Differential Comment SCANNED
[2024-10-19 06:59] LABS: Hypochromasia 1+; Microcytosis 1+; Stomatocyte RARE; Target Cells RARE
[2024-10-19 07:17] LABS: Anion Gap 13 (5-15); BUN 18 mg/dL (4-19); BUN/Creat Ratio 11.9 RATIO (10-20); Calcium,Total 7.6 mg/dL (7.6-11.0); Carbon Dioxide 19.2 mmol/L (21.0-32.0); Chloride 99 mmol/L (98-108); Creatinine, Serum 1.51 mg/dL (0.70-1.20); EST Glomerular Filtration Rate 38 (>60); Estimated Creatinine Clearance 35.99 ml/min (50-250); Glucose 107 mg/dL (70-99); Potassium 3.5 mmol/L (3.3-5.1); Sodium Level 131 mmol/L (133-145)
--- NOTE | 2024-10-19 07:50 | PCM.PN.HOSP ---
Reason for Visit Reason for Visit: Diagnoses Acute pyelonephritis (10/16/24) Unspecified hydronephrosis (10/16/24) Other specified disorders of kidney and ureter (10/16/24) Unspecified abdominal pain (10/16/24) Objective Data Objective Data Vital Signs: Vital Signs Temp Pulse Resp BP Pulse Ox O2 Del Method 99.3 F H 83 16 130/67 H 98 Room Air 10/19/24 03:20 10/19/24 03:20 10/19/24 03:20 10/19/24 03:20 10/19/24 03:20 10/19/24 03:20 Oxygen Delivery Method Room Air Weight: 157 lb 6.561 oz Body Mass Index (BMI) 27.0 Intake & Output: Intake and Output for Last 24 Hours 10/17/24 10/18/24 10/19/24 23:59 23:59 23:59 Intake Total 3958.3333 / 3958.3333 1080 / 1200 170 / 170 Balance 3958.3333 / 3958.3333 1080 / 1200 170 / 170 Lab / Micro Data 10/19/24 05:05 10/19/24 05:05 Labs: Laboratory Results - last 24 hr 10/18/24 11:42: POC Glucose 128 H 10/18/24 16:33: POC Glucose 131 H 10/18/24 21:42: POC Glucose 174 H 10/19/24 05:05: WBC 7.6, RBC 2.36 L, Hgb 7.8 L, Hct 22.3 L, MCV 94.5, MCH 33.1 H, MCHC 35.0, RDW Std Deviation 65.5 H, RDW Coeff of Zainab 18.8 H, Plt Count 101 L, MPV 9.9, Immature Gran % (Auto) 2.800 H, Neut % (Auto) 64.6, Lymph % (Auto) 11.5 L, [place] % (Auto) 20.1 H, Eos % (Auto) 0.5, Baso % (Auto) 0.5, Absolute Neuts (auto) 4.9, Absolute Lymphs (auto) 0.88, Nucleated RBC % 0, Differential Comment SCANNED, Hypochromasia 1+, Anisocytosis 1+, Microcytosis 1+, Target Cells RARE, Stomatocytes RARE, Sodium 131 L, Potassium 3.5, Chloride 99, Carbon Dioxide 19.2 L, Anion Gap 13, BUN 18, Creatinine 1.51 H, Estim Creat Clear Calc 35.99 L, Est GFR (MDRD) Non-Af 38 L, BUN/Creatinine Ratio 11.9, Glucose 107 H, Calcium 7.6 10/19/24 06:11: POC Glucose 104 Micro: Microbiology 10/16/24 18:42 Blood Culture (Wb) - Anticubital Right Blood Culture - Preliminary 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 No acute issues. Her left upper/lower quadrant and left sided upper flank pain is resolved. She also did not have alcohol withdrawal symptoms. Patient is stated she has 3 weeks symptoms of left lower quadrant left lower flank pain. She also states she sometimes a burning pain in the urine along with increased frequency and urgency. No fever. Blood cx positive of GNR in anaerobic bottle and GPC in cluster. Bacterial detection PCR is pending. IV antibioitc is changed to IV Vanco and Zosyn . Physical exam General: Alert, Oriented x3, Cooperative HEENT: Atraumatic, PERRLA, EOMI, Normocephalic Oral: No Gingival or Mucosal Lesions/ Ulcerations Neck: Supple, No JVD, Negative Carotid Bruits Chest wall/Lungs: Air entry diminished in bilateral lung bases. No crepitation/rhonchi Cardiovascular: Regular rate, Regular Rhythm, Normal S1, Normal S2, No M/G/R Abdomen: Bowel Sounds Present, Soft, no tenderness in left flank/left upper quadrant or LLQ : No dysuria. No renal angle tenderness. No suprapubic tenderness. No tenderness left upper back and lower thoracic/rib cage muscles Extremities: No edema, Capillary Refill Less than 3 Seconds Skin: No rashes, No breakdown Musculoskeletal: No Tenderness to Palpation of Joints or Extremities Neurological: Cranial nerves II-XII grossly intact, DTR 2+/4. No acute focal neurological deficit. Psych/Mental Status: Flat Assessment & Plan Assessment/Plan (1) Acute pyelonephritis: (2) Hydronephrosis: PLAN: Plan The patient is a 64 y/o F is being admitted for left flank pain for about 1 week. She denied history of urinary frequency hesitancy, subjective fever and chills. CT abdomen individually reviewed #1. Left upper flank, not due to pyelonephritis but has a right renal concerning mass: CT abdomen reviewed. Right kidney edematous, lobular, hyperattenuating region within right renal pelvis, chronic with perinephric stranding with moderate to severe hydronephrosis, no obstructing stone with features concerning for renal mass. Discussed with her Urologist. Her left upper flank and lower thoracic pain seems more musculoskeletal. No significant tenderness in left lower quadrant. No suprapubic tenderness. Patient was recently admitted and discharged on August 30, 2024 on antibiotic ampicillin after treatment for sepsis due to UTI and GIANCARLO. 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 Urologist consulted. Currently patient on IV cefepime. 10/18: Blood cx positive of GNR in anaerobic bottle and GPC in cluster. 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 Full culture pending. Empirically, IV antibioitc is changed to IV Vanco and Zosyn on 10/17. 10/18: Bacterial identification shows still hominis and Klebsiella pneumonia. Continue antibiotic. ID consult tomorrow. 2D echo ordered #2. Acute hyponatremia, hypochloremia, hypovolemic component probably due to chronic alcohol use: Patient is stated that she drinks 1 shot of from but seems more than what she stated. She also having 1 or 2 times loose bowel movement, watery consistency. No blood. IV fluid replacement. She also had couple of vomiting clear gastric last 1 week. Admission BMP with sod. ium 125, chloride 83 repeat shows sodium 128. Anion gap 15. 10/18: Sodium potassium, chloride and bicarb is still low. Anion gap 14 better. Head Of Advertising consulted. Patient not responding to IV fluid normal saline therefore started on sodium tablet. Potassium supplemented. Hypomagnesemia and hypophosphatemia resolved. 10/19: Potassium is better. Sodium is still low. #3. Severe anemia and acute thrombocytopenia: Platelet count was about 384 in ferritin 25. Platelet count dropped from 142-96. The reason is unclear. Patient on antibiotic. She also drinks alcohol. 10/18: Platelet count mildly low from bacteremia. Patient does not look septic. Sepsis ruled out. 10/19: Potassium is still low. Hemoglobin dropped from 10.4-7.8. Patient does not have active blood loss. Probably due to the patient bacteremia. Stool for occult blood ordered #4. Hypokalemia, hypophosphatemia with significant hypomagnesemia: Admission K+ 2.8, magnesium level 0.7. IV electrolyte potassium, phosphate and magnesium replaced. Repeat magnesium was 2.1 #5. Chronic Kidney Disease Stage IIIb, : Admission BUN/creatinine 16/1.8.Her creatinine was 3.3 in August 202410/18: Creatinine improving 1.68. #6. Chronic cigarette smoking and marijuana use: Tobacco cessation advised. Nicotine replacement offered #7. Chronic normocytic anemia: Admission hemoglobin 10.4, MCV 92.6, baseline hemoglobin has been 8-10 range, more recently 08/29/2024 hemoglobin 8.1, continue to trend CBC. #8. Diabetes mellitus type II with chronic neuropathy: Hold oral home regimen, ADA diet, accu checks w/ ISS, continue home gabapentin regimen. #9. Hypertension: Continue home regimen including metoprolol with hold parameters as needed, PRN hydralazine. #10. Hyperlipidemia: Will continue patient on statin therapy. #11. EtOH Abuse: Patient notes routine consumption of the equivalent of 2-3 rum and Cokes per day. Will maintain on CIWA protocol, MVI, thiamine and folic acid. Encouraged decrease and discussed when absolute sobriety should be the direction. Mag low and being supplemented now, phos pending. #12. DVT prophylaxis: SCDs pending urology evaluation given #1 as noted. #13. CODE status: Patient has not had healthcare preparatory or living will in place. Discussed CODE status at length including difference between FULL code, DNR-CCA and DNR-CC status. Following discussions about the differences in these status, requested Full Code status. Charges/Coding Visit Charges Inpatient E&M: 11280 Subs Hosp L2
[2024-10-19] MEDS: Metoprolol Tartrate 50 MG Tablet PO ×2 (08:12→21:35)
[2024-10-19] MEDS: Potassium Chloride Oral Tablet 20 MEQ 40 MEQ PO ×2 (08:13→16:20)
[2024-10-19] MEDS: Thiamine Hydrochloride 100 MG Tablet PO (08:13)
[2024-10-19] MEDS: Folic Acid 1 MG Tablet PO (08:13)
[2024-10-19] MEDS: Atorvastatin Calcium 20 MG Tablet PO (08:13)
[2024-10-19] MEDS: Magnesium Chloride 64 MG Delay Rel.Tablet 128 MG PO ×2 (08:13→21:34)
[2024-10-19] MEDS: Multivitamins,Ther W-Minerals Tablet 1 TABLET PO (08:14)
[2024-10-19 11:45] LABS: Bedside Glucose 133 mg/dL (74-106)
--- NOTE | 2024-10-19 12:48 | ECHOD_ITS ---
Reason For Study Reason For Study: STAPH BACTERIA Procedure This was a 2D Doppler, Color Flow transthoracic echocardiogram. Exam performed portable in patient room. Left Ventricle Normal LV size. Left ventricular systolic function is normal. The left ventricular ejection fraction is 65 %. No regional wall motion abnormalities noted. Right Ventricle Normal RV size. Normal systolic function. Atria Normal left atrium. Normal right atrium. Mitral Valve Normal mitral valve. Tricuspid Valve Normal tricuspid valve. Aortic Valve Trisinus/trileaflet aortic valve. Pulmonic Valve Normal pulmonic valve. Great Vessels Normal aortic root. The pulmonary artery is normal size. Inferior vena cava collapse with respiration. Pericardium/Pleural No pericardial effusion. MMode/2D Measurements & Calculations LVIDd: 5.3 cm IVSd: 1.1 cm LVOT diam: 2.0 cm LVIDs: 3.6 cm LVPWd: 1.5 cm LVOT area: 3.1 cm2 FS: 31.3 % Ao root diam: 2.6 cm LAV(MOD-bp): 45.4 ml LVAd ap4: 23.7 cm2 LAV(MOD-bp) Indexed: 25.8 ml/m2 LVLd ap4: 6.8 cm LAV(MOD-sp2): 50.9 ml EDV(MOD-sp4): 69.1 ml LAV(MOD-sp4): 37.2 ml EDV(sp4-el): 70.0 ml LVAs ap4: 14.1 cm2 LVLs ap4: 5.7 cm ESV(MOD-sp4): 29.0 ml ESV(sp4-el): 29.8 ml EF(MOD-sp4): 58.0 % EF(sp4-el): 57.5 % SV(MOD-sp4): 40.1 ml SV(sp4-el): 40.3 ml LA A4 area: 16.1 cm2 SI(MOD-sp4): 22.8 ml/m2 LA dimension(2D): 4.2 cm RA A4 area: 11.4 cm2 Time Measurements MV dec time: 0.21 sec Doppler Measurements & Calculations MV E max karl: 117.8 cm/sec Lat Peak E' Karl: 13.1 cm/sec Med Peak E' Karl: 8.4 cm/sec MV A max karl: 118.3 cm/sec E/E' lat: 9.0 E/E' med: 14.0 MV E/A: 1.00 MV V2 max: 134.4 cm/sec Ao V2 max: 199.9 cm/sec MV max P.2 mmHg MV dec slope: 568.1 cm/sec2 Ao max P.0 mmHg MV V2 mean: 95.9 cm/sec Ao V2 mean: 128.4 cm/sec MV mean P.9 mmHg Ao mean P.7 mmHg MV V2 VTI: 46.0 cm Ao V2 VTI: 38.4 cm AV (velocity ratio): 0.83 MVA(VTI): 2.1 cm2 SASHA(I,D): 2.6 cm2 SASHA(V,D): 2.6 cm2 LV V1 max: 166.5 cm/sec SV(LVOT): 98.1 ml PA V2 max: 115.4 cm/sec LV V1 max P.1 mmHg PA V2 mean: 82.0 cm/sec LV V1 mean P.4 mmHg LV V1 mean: 107.1 cm/sec LV V1 VTI: 31.8 cm ECHO/Echo Complete Interpretation Summary Normal LV size. Left ventricular systolic function is normal. The left ventricular ejection fraction is 65 %. Structurally normal valves. There is no evidence of a mass or vegetation. This does not rule out endocarditis. Ordering Physician: Paulo Aparicio Referring Physician: Avinash Senior M.D. Performed By: Naomi Hoffman RCS
[2024-10-19 17:13] LABS: Bedside Glucose 118 mg/dL (74-106)
[2024-10-19 20:39] LABS: Vancomycin, Trough Level 11.3 ug/mL (5.0-15.0)
--- NOTE | 2024-10-19 21:02 | PHA.PHARE_ITS ---
Consult Antibiotic Management Pharmacy has been consulted to manage selected antibiotic: Vancomycin Type of Intervention Type of Consult: Follow-up Labs Labs: Sodium 131 mmol/L (133-145) L 10/19/24 05:05 Potassium 3.5 mmol/L (3.3-5.1) 10/19/24 05:05 Chloride 99 mmol/L (98-108) 10/19/24 05:05 Carbon Dioxide 19.2 mmol/L (21.0-32.0) L 10/19/24 05:05 Anion Gap 13 (5-15) 10/19/24 05:05 BUN 18 mg/dL (4-19) 10/19/24 05:05 Creatinine 1.51 mg/dL (0.70-1.20) H 10/19/24 05:05 Est GFR (MDRD) Non-Af 38 (>60) L 10/19/24 05:05 BUN/Creatinine Ratio 11.9 RATIO (10-20) 10/19/24 05:05 Glucose 107 mg/dL (70-99) H 10/19/24 05:05 Vancomycin Trough 11.3 ug/mL (5.0-15.0) 10/19/24 19:37 Microbiology Microbiology: Microbiology 10/16/24 18:42 Blood Culture (Wb) - Anticubital Right Blood Culture - 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 TROUGH 11.3 @ 23.5 HOURS. INCREASE TO 1250MG Q24H AND FOLLOW UP TROUGH PRIOR TO 3RD DOSE Follow-Up Labs Follow-Up Labs: Trough: Vancomycin Date/Time Labs Ordered Labs to be done on [date and time ordered]: 10/21 @ 2030
[2024-10-19] MEDS: Vancomycin HCl 1,250 MG in 0.9% Normal Saline (250mL Bag) 250 ML 167 MG IV (21:41)
[2024-10-19 23:00] LABS: Bedside Glucose 127 mg/dL (74-106)
[2024-10-20] VITALS (10 sets, daily range): BP systolic 107–135; BP diastolic 56–74; PULSE 64–82; RESP 16–18; TEMP 36.6–36.8; O2SAT 95–100; BMI 26.8
[2024-10-20 05:16] LABS: Absolute Lymphocyte Count 1.16 X10^3/uL (0.83-4.51); Absolute Neutrophil Count 4.2 X10^3/uL (2.0-7.7); Basophil# 0.04 X10^3/uL; Basophil% 0.5 % (0-1); Eosinophil# 0.11 X10^3/uL; Eosinophils% 1.5 % (0-5); Hematocrit 23.5 % (37-47); Hemoglobin 7.8 g/dL (12.0-15.0); Lymphocyte # 1.16 X10^3/ul (0.83-4.51); Lymphocyte % 15.9 % (19-41); Mean Corp Hgb Conc 33.2 g/dL (32-36); Mean Corpuscular Hgb 33.2 pg (27.0-32.0); Mean Platelet Vol. 10.4 fl (6.2-12.0); Monocyte# 1.44 X10^3/uL; Monocyte% 19.7 % (0-10); NRBC Flagged by Analyzer 0 % (0-5); Neutrophil # 4.21 X10^3/uL (2.7-7.7); Neutrophil % 57.7 % (47-70); POSITIVE MORPHOLOGY YES; Platelet Count 129 K/mm3 (150-450); RBC Distribution Width CV 19.9 % (11.6-14.6); Red Blood Count 2.35 M/mm3 (4.2-5.4); White Blood Count 7.3 K/mm3 (4.4-11.0)
[2024-10-20 06:01] LABS: Anion Gap 12 (5-15); BUN 12 mg/dL (4-19); BUN/Creat Ratio 9.2 RATIO (10-20); Calcium,Total 7.8 mg/dL (7.6-11.0); Carbon Dioxide 17.2 mmol/L (21.0-32.0); Chloride 102 mmol/L (98-108); Creatinine, Serum 1.33 mg/dL (0.70-1.20); Differential Indicated SCAN CRITERIA MET; EST Glomerular Filtration Rate 44 (>60); Glucose 102 mg/dL (70-99); Potassium 4.2 mmol/L (3.3-5.1); Sodium Level 131 mmol/L (133-145)
[2024-10-20 06:04] LABS: Hypochromasia 1+; Red Cell Morphology N CYTIC NORMAL (NORM C&C)
[2024-10-20] MEDS: Sodium Chloride 1 GM Tablet 2 GM PO ×3 (06:11→21:23)
[2024-10-20] MEDS: Piperacil/Tazobactam 3.375 GM in 0.9% Normal Saline (50mL MB+) 50 ML IV (06:11)
[2024-10-20 06:46] LABS: Bedside Glucose 92 mg/dL (74-106)
[2024-10-20] MEDS: Atorvastatin Calcium 20 MG Tablet PO (09:46)
[2024-10-20] MEDS: Thiamine Hydrochloride 100 MG Tablet PO (09:46)
[2024-10-20] MEDS: Potassium Chloride Oral Tablet 20 MEQ 40 MEQ PO ×2 (09:46→16:10)
[2024-10-20] MEDS: Multivitamins,Ther W-Minerals Tablet 1 TABLET PO (09:47)
[2024-10-20] MEDS: Folic Acid 1 MG Tablet PO (09:47)
[2024-10-20] MEDS: Magnesium Chloride 64 MG Delay Rel.Tablet 128 MG PO ×2 (09:47→21:24)
[2024-10-20] MEDS: Lactobacillis Acidophilus 1 CAP PO ×3 (09:50→21:16)
[2024-10-20] MEDS: Metoprolol Tartrate 50 MG Tablet PO ×2 (09:54→22:00)
[2024-10-20 11:25] LABS: Bedside Glucose 152 mg/dL (74-106)
--- NOTE | 2024-10-20 11:28 | CON.PCM.ID_ITS ---
Assessment & Plan Assessment/Plan (1) Right renal mass: (2) Acute pyelonephritis: PLAN: Feeling better. Complicated by klebsiella bacteremia. Ucx with GNR and enterococcus-like. Single bcx also with CoNS, suspect contaminant. Seen by urology here. Concern for renal mass contributing to new onset recurrent uti. Will stop vanc, narrow zosyn to unasyn. Checking repeat bcx to document clearance given concern for lack of source control. Will follow, thank you (3) Left flank pain: HPI Consult Data Date of Consult: 10/20/24 HPI Narrative Reason for Consultation: bacteremia HPI Narrative: KRISTY MOJICA, is a 64 F with h/o DM, CKD, htn, reports 4 uti in past 6 months. Presented 10/16 with 5-7 days L flank pain, R sided abd pain, urinary frequency/hesitancy. Developed fever at home, came to ED, admitted on cefeime. Urology consulted due to hydro and mass seen. Now on vanc/zosyn, feeling better, pain improved. Full ROS performed and neg except as noted above. [facility] Medical History Right renal mass Chronic painful diabetic neuropathy CKD (chronic kidney disease), stage III Tobacco use Chronic anemia Diabetes mellitus, type 2 HLD (hyperlipidemia) Hypertension Home Medications ?Medication ?Instructions ?Recorded ?Last Taken ?Type atorvastatin 20 mg tablet 20 mg PO DAILY cholesterol 0 08/27/24 10/15/24 History metformin 500 mg tablet 500 mg PO DAILY diabetes 10/15/24 History metoprolol tartrate 50 mg tablet 50 mg PO BID blood pr essure 08/27/24 10/15/24 History albuterol sulfate 90 mcg/actuation 2 puff inhalation Q 6H PRN wheezing 10/16/24 Unknown History aerosol inhaler hydrochlorothiazide 12.5 mg tablet 12.5 mg PO DAILY 10/15/24 History Allergy/AdvReac Type Severity Reaction Status Date / Time Sulfa (Sulfonamide Allergy Severe Angioedema Verified 10/16/24 15:33 Antibiotics) Family History Mother Hypertension Diabetes Father Hypertension Surgical History No history of previous surgery Social History household members: none Smoking Status: Current every day smoker tobacco type: cigarettes Smoking packs per day: 0.75 Smoking cigarettes per day: 15.0 alcohol intake: current alcohol intake frequency: 3 or more drinks per day Alcohol type: hard liquor details: The equivalent of ~ 2-3 rum+coke daily. substance use type: does not use Physical Exam Const alert, oriented x3 and no apparent distress General Appearance: cooperative HEENT normocephalic and head/scalp atraumatic Eyes PERRL and EOMs intact bilaterally Neck supple and No nodes Resp normal air movement and clear to auscultation bilaterally Cardio regular rate and regular rhythm GI soft to palpation, non-tender and non-distended Extremity General Extremity: Negative for edema Skin no rashes or lesions noted Neuro CN's II-XII intact bilaterally Lab / Micro Data Attestation: I reviewed the patient's lab results. 10/20/24 04:04 10/20/24 04:04 Labs: Laboratory Results - last 24 hr 10/19/24 11:19: POC Glucose 133 H 10/19/24 16:19: POC Glucose 118 H 10/19/24 19:37: Vancomycin Trough 11.3 10/19/24 21:31: POC Glucose 127 H 10/20/24 04:04: WBC 7.3, RBC 2.35 L, Hgb 7.8 L, Hct 23.5 L, MCV 100.0 H D, MCH 33.2 H, MCHC 33.2 D, RDW Std Deviation 73.0 H, RDW Coeff of Zainab 19.9 H, Plt Count 129 L, MPV 10.4, Immature Gran % (Auto) 4.700 H, Neut % (Auto) 57.7, Lymph % (Auto) 15.9 L, [place] % (Auto) 19.7 H, Eos % (Auto) 1.5, Baso % (Auto) 0.5, Absolute Neuts (auto) 4.2, Absolute Lymphs (auto) 1.16, Nucleated RBC % 0, RBC Morphology N CYTIC, Hypochromasia 1+, Sodium 131 L, Potassium 4.2, Chloride 102, Carbon Dioxide 17.2 L, Anion Gap 12, BUN 12, Creatinine 1.33 H, Estim Creat Clear Calc 40.70 L, Est GFR (MDRD) Non-Af 44 L, BUN/Creatinine Ratio 9.2 L, G lucose 102 H, Calcium 7.8 10/20/24 06:10: POC Glucose 92 10/20/24 11:06: POC Glucose 152 H Micro: Microbiology 10/20/24 10:08 Stool Stool Lactoferrin - Final 10/20/24 10:08 Stool Stool Occult Blood (CARL) - Final 10/19/24 20:45 Stool Stool Occult Blood (CARL) - Final 10/16/24 18:42 Blood Culture (Wb) - Anticubital Right Blood Culture - 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
--- NOTE | 2024-10-20 12:18 | PN.HOSP_ITS ---
Reason for Visit Reason for Visit: Diagnoses Acute pyelonephritis (10/16/24) Unspecified hydronephrosis (10/16/24) Other specified disorders of kidney and ureter (10/16/24) Unspecified abdominal pain (10/16/24) Objective Data Objective Data Vital Signs: Vital Signs Temp Pulse Resp BP Pulse Ox O2 Del Method 97.8 F 64 16 117/60 98 Room Air 10/20/24 08:53 10/20/24 11:29 10/20/24 08:53 10/20/24 11:29 10/20/24 11:29 10/20/24 11:29 Oxygen Delivery Method Room Air Weight: 156 lb 1.396 oz Body Mass Index (BMI) 26.8 Intake & Output: Intake and Output for Last 24 Hours 10/18/24 10/19/24 10/20/24 23:59 23:59 23:59 Intake Total 1080 / 1200 1395 / 1635 580 / 580 Output Total 375 / 375 Balance 1080 / 1200 1020 / 1260 580 / 580 Lab / Micro Data 10/20/24 04:04 10/20/24 04:04 Labs: Laboratory Results - last 24 hr 10/19/24 16:19: POC Glucose 118 H 10/19/24 19:37: Vancomycin Trough 11.3 10/19/24 21:31: POC Glucose 127 H 10/20/24 04:04: WBC 7.3, RBC 2.35 L, Hgb 7.8 L, Hct 23.5 L, MCV 100.0 H D, MCH 33.2 H, MCHC 33.2 D, RDW Std Deviation 73.0 H, RDW Coeff of Zainab 19.9 H, Plt Count 129 L, MPV 10.4, Immature Gran % (Auto) 4.700 H, Neut % (Auto) 57.7, Lymph % (Auto) 15.9 L, [place] % (Auto) 19.7 H, Eos % (Auto) 1.5, Baso % (Auto) 0.5, Absolute Neuts (auto) 4.2, Absolute Lymphs (auto) 1.16, Nucleated RBC % 0, RBC Morphology N CYTIC, Hypochromasia 1+, Sodium 131 L, Potassium 4.2, Chloride 102, Carbon Dioxide 17.2 L, Anion Gap 12, BUN 12, Creatinine 1.33 H, Estim Creat Clear Calc 40.70 L, Est GFR (MDRD) Non-Af 44 L, BUN/Creatinine Ratio 9.2 L, G lucose 102 H, Calcium 7.8 10/20/24 06:10: POC Glucose 92 10/20/24 11:06: POC Glucose 152 H Micro: Microbiology 10/20/24 10:08 Stool Stool Lactoferrin - Final 10/20/24 10:08 Stool Clostridioides difficile (PCR) - Final 10/20/24 10:08 Stool Stool Occult Blood (CARL) - Final 10/19/24 20:45 Stool Stool Occult Blood (CARL) - Final 10/16/24 18:42 Blood Culture (Wb) - Anticubital Right Blood Culture - Final GNR 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 Left ventricular systolic function is normal. The left ventricular ejection fraction is 65 %. Structurally normal valves. There is no evidence of a mass or vegetation. This does not rule out endocarditis. Ordering Physician: Paulo Aparicio Referring Physician: Avinash Senior M.D. Performed By: Naomi Hoffman RCS Physical Exam Narrative Seen and examined. Patient complained that she had loose small 6 times watery diarrhea along with urination. And 1 since the morning. Denies abdominal cramps. Patient is stated she has 3 weeks symptoms of left lower quadrant left lower flank pain. She also states she sometimes a burning pain in the urine along with increased frequency and urgency. No fever. Blood cx positive of GNR in anaerobic bottle and GPC in cluster. Bacterial detection PCR is pending. IV antibioitc is changed to IV Vanco and Zosyn . Physical exam General: Alert, Oriented x3, Cooperative HEENT: Atraumatic, PERRLA, EOMI, Normocephalic Oral: No Gingival or Mucosal Lesions/ Ulcerations Neck: Supple, No JVD, Negative Carotid Bruits Chest wall/Lungs: Air entry diminished in bilateral lung bases. No crepitation/rhonchi Cardiovascular: Regular rate, Regular Rhythm, Normal S1, Normal S2, No M/G/R Abdomen: Bowel Sounds Present, Soft, no tenderness in left flank/left upper quadrant or LLQ : No dysuria. No renal angle tenderness. No suprapubic tenderness. No tenderness left upper back and lower thoracic/rib cage muscles Extremities: No edema, Capillary Refill Less than 3 Seconds Skin: No rashes, No breakdown Musculoskeletal: No Tenderness to Palpation of Joints or Extremities Neurological: Cranial nerves II-XII grossly intact, DTR 2+/4. No acute focal neurological deficit. Psych/Mental Status: Flat Assessment & Plan Assessment/Plan (1) Acute pyelonephritis: (2) Hydronephrosis: PLAN: Plan The patient is a 64 y/o F is being admitted for left flank pain for about 1 week. She denied history of urinary frequency hesitancy, subjective fever and chills. CT abdomen individually reviewed #1. Left upper flank, not due to pyelonephritis but has a right renal concerning mass: CT abdomen reviewed. Right kidney edematous, lobular, hyperattenuating region within right renal pelvis, chronic with perinephric stranding with moderate to severe hydronephrosis, no obstructing stone with features concerning for renal mass. Discussed with her Urologist. Her left upper flank and lower thoracic pain seems more musculoskeletal. No significant tenderness in left lower quadrant. No suprapubic tenderness. Patient was recently admitted and discharged on August 30, 2024 on antibiotic ampicillin after treatment for sepsis due to UTI and GIANCARLO. urine culture grew GNR lactose chemical waste management technician, less than 1000 colonies and possible Enterococcus, 1002 10,000 colonies Blood cultures x 2 urine culture ordered. Urologist consulted. Currently patient on IV cefepime. 10/18: Blood cx positive of GNR in anaerobic bottle and GPC in cluster. Bacterial detection PCR reported GNR lactose chemical waste management technician and staph species. Full culture pending. Empirically, IV antibioitc is changed to IV Vanco and Zosyn on 10/17. 10/18: Bacterial identification shows still hominis and Klebsiella pneumonia. Continue antibiotic. ID consult tomorrow. 2D echo ordered 10/20: Blood culture shows Klebsiella pneumoniae and Staph hominis, coagulase- negative staph. Patient was evaluated by ID. Repeat blood culture ordered. Stop vancomycin. Zosyn narrowed down to Unasyn. Urine culture shows Klebsiella pneumoniae 11,000-25,000. #2. Acute hyponatremia, hypochloremia, hypovolemic component probably due to chronic alcohol use: Patient is stated that she drinks 1 shot of from but seems more than what she stated. She also having 1 or 2 times loose bowel movement, watery consistency. No blood. IV fluid replacement. She also had couple of vomiting clear gastric last 1 week. Admission BMP with sod. ium 125, chloride 83 repeat shows sodium 128. Anion gap 15. 10/18: Sodium potassium, chloride and bicarb is still low. Anion gap 14 better. Business Strategy Manager consulted. Patient not responding to IV fluid normal saline therefore started on sodium tablet. Potassium supplemented. Hypomagnesemia and hypophosphatemia resolved. 10/19: Potassium is better. Sodium is still low. 10/20: Sodium still 131 serum potassium normal #3. Severe anemia and acute thrombocytopenia: Platelet count was about 384 in ferritin 25. Platelet count dropped from 142-96. The reason is unclear. Patient on antibiotic. She also drinks alcohol. 10/18: Platelet count mildly low from bacteremia. Patient does not look septic. Sepsis ruled out. 10/19: Potassium is still low. Hemoglobin dropped from 10.4-7.8. Patient does not have active blood loss. Probably due to the patient bacteremia. Stool for occult blood ordered 10/20: Hemoglobin 7.8. Platelet count 129,000 #4. Hypokalemia, hypophosphatemia with significant hypomagnesemia: Admission K+ 2.8, magnesium level 0.7. IV electrolyte potassium, phosphate and magnesium replaced. Repeat magnesium was 2.1 #5. Chronic Kidney Disease Stage IIIb, : Admission BUN/creatinine 16/1.8.Her creatinine was 3.3 in August 202410/18: Creatinine improving 1.68. 10/2019 creatinine 1.33. This creatinine is the lowest since August 26 #6. Chronic cigarette smoking and marijuana use: Tobacco cessation advised. Nicotine replacement offered #7. Chronic normocytic anemia: Admission hemoglobin 10.4, MCV 92.6, baseline hemoglobin has been 8-10 range, more recently 08/29/2024 hemoglobin 8.1, continue to trend CBC. #8. Diabetes mellitus type II with chronic neuropathy: Hold oral home regimen, ADA diet, accu checks w/ ISS, continue home gabapentin regimen. #9. Hypertension: Continue home regimen including metoprolol with hold parameters as needed, PRN hydralazine. #10. Hyperlipidemia: Will continue patient on statin therapy. #11. EtOH Abuse: Patient notes routine consumption of the equivalent of 2-3 rum and Cokes per day. Will maintain on CIWA protocol, MVI, thiamine and folic acid. Encouraged decrease and discussed when absolute sobriety should be the direction. Mag low and being supplemented now, phos pending. #12. DVT prophylaxis: SCDs pending urology evaluation given #1 as noted. #13. CODE status: Patient has not had healthcare preparatory or living will in place. Discussed CODE status at length including difference between FULL code, DNR-CCA and DNR-CC status. Following discussions about the differences in these status, requested Full Code status. Charges/Coding Visit Charges Inpatient E&M: 49947 Subs Hosp L2
[2024-10-20] MEDS: Ampicillin/Sulbactam 3 GM in 0.9% Normal Saline (100mL MB+) 100 ML IV ×2 (13:53→21:18)
[2024-10-20] MEDS: 0.9% Saline Lock 10 ML Syringe IV (13:53)
--- NOTE | 2024-10-20 14:39 | CON.PCM.RE_ITS ---
Assessment & Plan Assessment/Plan (1) GIANCARLO (acute kidney injury): (2) Hyponatremia: PLAN: Plan This is a pleasant 64-year-old female with past medical history significant for hypertension, hyperlipidemia, diabetes mellitus type 2, chronic anemia, alcohol abuse (rum and coke), admitted for acute pyelonephritis. Nephrology consulted for hyponatremia and GIANCARLO. Baseline sodium and creatinine unknown. During last hospitalization end of August 2024 (patient was admitted for UTI and sepsis, hyponatremia and GIANCARLO) patient's sodium was 121 on admission, improved to 129 on August 29. She was discharged home off hydrochlorothiazide. For this admission sodium 125 and has improved to 131. Patient is on salt tablets. She is off hydrochlorothiazide. Patient does not have any symptoms of hyponatremia. Baseline sodium unknown. Patient appears near euvolemic on exam. Will continue on salt tablets. Discussed with patient importance of alcohol cessation. Also reviewed with patient importance of increasing dietary protein intake. In time may be able to de-escalate salt tablets, reviewed this with patient. For GIANCARLO, baseline creatinine unknown. On August 27 creatinine 3.3 and by time of hospital discharge on August 29 creatinine 1.59. For this admission creatinine was 1.80 on admission and currently creatinine 1.33 mg/dL. In the emergency room patient was given a liter of IV fluids and also started on IV antibiotics. CT abdomen/pelvis without contrast revealed edematous and enlarged right kidney, moderate to severe right hydronephrosis no obstructing stone; patient has been seen by urology during this admission with no intervention planned at this time, right-sided hydronephrosis possibly related to right-sided malignancy versus clot and patient has been referred to [facility] urology in [place]. ID consulted for acute pyelonephritis. Overall renal function and sodium levels improving, patient is off IV fluids and recommend keeping off IV fluids for now. Blood pressures acceptable. Further orders forthcoming as hospitalization evolves, thank you for letting us participate in the care of Ms. Mojica. HPI Consult Data Date of Consult: 10/20/24 HPI Narrative HPI Narrative: KRISTY MOJICA, is a 64 F with past medical history significant for hypertension, hyperlipidemia, diabetes mellitus type 2, chronic anemia, alcohol abuse (rum and coke) who presented to the emergency room on 10/16 for complaints of left flank pain and urinary frequency. Patient was admitted for acute right-sided pyelonephritis, hyponatremia and GIANCARLO. Nephrology consulted for hyponatremia and GIANCARLO. Patient has not been seen by nephrology in past. Available lab work to review is from last admission which was in August 2024 in which patient was admitted for sepsis from urinary tract infection, GIANCARLO and hyponatremia. At time of hospital discharge on August 29 both sodium and serum creatinine had improved. Patient has never required any renal replacement therapy. For this admission sodium was 127 on October 16 and is currently 131, Creatinine on admission (October 16) 1.8 and currently creatinine is 1.33. Patient denies any recent vomiting or nausea, no with diarrhea. Reports flank pain has improved. Patient had been on hydrochlorothiazide in the past however after last hospitalization this was stopped. Today patient reports this was resumed as she was noted to have lower extremity edema. [facility] Medical History Right renal mass Chronic painful diabetic neuropathy CKD (chronic kidney disease), stage III Tobacco use Chronic anemia Diabetes mellitus, type 2 HLD (hyperlipidemia) Hypertension Home Medications ?Medication ?Instructions ?Recorded ?Last Taken ?Type atorvastatin 20 mg tablet 20 mg PO DAILY cholesterol 0 08/27/24 10/15/24 History metformin 500 mg tablet 500 mg PO DAILY diabetes 10/15/24 History metoprolol tartrate 50 mg tablet 50 mg PO BID blood pr essure 08/27/24 10/15/24 History albuterol sulfate 90 mcg/actuation 2 puff inhalation Q 6H PRN wheezing 10/16/24 Unknown History aerosol inhaler hydrochlorothiazide 12.5 mg tablet 12.5 mg PO DAILY 10/15/24 History Allergy/AdvReac Type Severity Reaction Status Date / Time Sulfa (Sulfonamide Allergy Severe Angioedema Verified 10/16/24 15:33 Antibiotics) Family History Mother Hypertension Diabetes Father Hypertension Surgical History No history of previous surgery Social History household members: none Smoking Status: Current every day smoker tobacco type: cigarettes Smoking packs per day: 0.75 Smoking cigarettes per day: 15.0 alcohol intake: current alcohol intake frequency: 3 or more drinks per day Alcohol type: hard liquor details: The equivalent of ~ 2-3 rum+coke daily. substance use type: does not use ROS ROS Narrative As in HPI Physical Exam Narrative Alert and oriented x 3, no apparent distress S1, S2, RRR Lungs sound clear anteriorly and posteriorly. No wheezes rhonchi or rales Abdomen soft, positive bowel sounds no edema to legs or feet Lab / Micro Data 10/20/24 04:04 10/20/24 04:04 Labs: Laboratory Results - last 24 hr 10/19/24 16:19: POC Glucose 118 H 10/19/24 19:37: Vancomycin Trough 11.3 10/19/24 21:31: POC Glucose 127 H 10/20/24 04:04: WBC 7.3, RBC 2.35 L, Hgb 7.8 L, Hct 23.5 L, MCV 100.0 H D, MCH 33.2 H, MCHC 33.2 D, RDW Std Deviation 73.0 H, RDW Coeff of Zainab 19.9 H, Plt Count 129 L, MPV 10.4, Immature Gran % (Auto) 4.700 H, Neut % (Auto) 57.7, Lymph % (Auto) 15.9 L, [place] % (Auto) 19.7 H, Eos % (Auto) 1.5, Baso % (Auto) 0.5, Absolute Neuts (auto) 4.2, Absolute Lymphs (auto) 1.16, Nucleated RBC % 0, RBC Morphology N CYTIC, Hypochromasia 1+, Sodium 131 L, Potassium 4.2, Chloride 102, Carbon Dioxide 17.2 L, Anion Gap 12, BUN 12, Creatinine 1.33 H, Estim Creat Clear Calc 40.70 L, Est GFR (MDRD) Non-Af 44 L, BUN/Creatinine Ratio 9.2 L, G lucose 102 H, Calcium 7.8 10/20/24 06:10: POC Glucose 92 10/20/24 11:06: POC Glucose 152 H Micro: Microbiology 10/20/24 10:08 Stool Stool Lactoferrin - Final 10/20/24 10:08 Stool Clostridioides difficile (PCR) - Final 10/20/24 10:08 Stool Stool Occult Blood (CARL) - Final 10/19/24 20:45 Stool Stool Occult Blood (CARL) - Final Imaging Radiology Impression Echocardiogram 10/19/24 12:48 Interpretation Summary Normal LV size. Left ventricular systolic function is normal. The left ventricular ejection fraction is 65 %. Structurally normal valves. There is no evidence of a mass or vegetation. This does not rule out endocarditis. Ordering Physician: Paulo Aparicio Referring Physician: Avinash Senior M.D. Performed By: Naomi Hoffman RCS
[2024-10-20 16:25] LABS: Bedside Glucose 104 mg/dL (74-106)
[2024-10-20 20:32] LABS: Bedside Glucose 124 mg/dL (74-106)
[2024-10-20] MEDS: Acetaminophen 325 MG Tablet 650 MG PO (21:18)
[2024-10-21] VITALS: BP 107/58; PULSE 65; RESP 14; TEMP 2.7; TEMP 36.8; O2SAT 99
[2024-10-21 03:00] VITALS: PULSE 68
[2024-10-21 03:06] VITALS: BMI 26.7
[2024-10-21 04:00] VITALS: BP 128/97; PULSE 73; RESP 20; RESP 22; TEMP 36.7; O2SAT 92
[2024-10-21] MEDS: Lactobacillis Acidophilus 1 CAP PO (06:09)
[2024-10-21] MEDS: Sodium Chloride 1 GM Tablet 2 GM PO (06:09)
[2024-10-21] MEDS: 0.9% Saline Lock 10 ML Syringe IV ×2 (06:10→09:54)
[2024-10-21] MEDS: Ampicillin/Sulbactam 3 GM in 0.9% Normal Saline (100mL MB+) 100 ML IV (06:10)
[2024-10-21 06:41] VITALS: BMI 25.6
[2024-10-21 07:13] LABS: Anion Gap 11 (5-15); BUN 9 mg/dL (4-19); BUN/Creat Ratio 7.7 RATIO (10-20); Calcium,Total 8.3 mg/dL (7.6-11.0); Carbon Dioxide 19.4 mmol/L (21.0-32.0); Chloride 104 mmol/L (98-108); Creatinine, Serum 1.14 mg/dL (0.70-1.20); EST Glomerular Filtration Rate 53 (>60); Estimated Creatinine Clearance 46.55 ml/min (50-250); Glucose 105 mg/dL (70-99); Potassium 4.6 mmol/L (3.3-5.1); Sodium Level 134 mmol/L (133-145)
--- NOTE | 2024-10-21 08:40 | PCM.DC ---
Discharge Instructions Diet Discharge Diet: No restrictions DC O2, CPAP, BIPAP needs Home O2 Discharge instructions: No Dressing / Incision Discharge Activity: Return to Normal Activity Weight Bearing Status: Weight bearing as tolerated Dressing / Incision Call your doctor if you observe: Fever of 101 or Higher, Coldness, Increased Pain, Numbness or Tingling, Change in Color, Inability to urinate, Inability to have a bowel movement, Shortness of breath, Dizziness, Fainting spells, Swelling in the ankles, Chest pain, Prolonged hiccupping, Increased palpitations (irregular heartbeat) and Calf discomfort Follow Up Care When: IN 2 WEEKS Test Results: Test results from this visit will be discussed in further detail at your follow-up appointment, if applicable. Discharge Plan Admission Admit Date/Time: 10/16/24 18:49 Attending Provider: Paulo Aparicio Primary Care Provider: Avinash Senior Consulting Providers: Rocio Cisneros; Renae Pyle; Christian Ayala; Bruce Byrd Instructions Additional Instructions / Restrictions: Patient is referred to follow-up outpatient with Dr. Douglas Capone, urologist in [facility] for right kidney mass Discharge Orders/Prescriptions Prescriptions: New thiamine HCl (vitamin B1) 100 mg Tablet 100 mg PO BREAKFAST 30 Days Qty: 30 2RF amoxicillin-pot clavulanate 875-125 mg tablet 1 tab PO BID 5 Days Qty: 10 0RF folic acid 1 mg tablet 1 mg PO BREAKFAST 30 Days Qty: 30 3RF Continued metformin 500 mg tablet 500 mg PO DAILY atorvastatin 20 mg tablet 20 mg PO DAILY metoprolol tartrate 50 mg tablet 50 mg PO BID Patient Comments: per pt has been taking daily albuterol sulfate 90 mcg/actuation HFA aerosol inhaler 2 puff INHALATION Q6H PRN (Reason: wheezing) Discontinued hydrochlorothiazide 12.5 mg tablet 12.5 mg PO DAILY Referrals / Follow Up: Rehana Smith MD [Med Staff - Consulting] - Within 2 Weeks (Follow-up for CKD, hyponatremia and hypokalemia) Avinash Senior MD [Primary Care Provider] - Disposition Disposition (needs filled in before D/C Order can be placed): Home, Self Care
[2024-10-21 09:38] VITALS: BP 113/62; PULSE 83; RESP 16; TEMP 36.5; O2SAT 100
[2024-10-21 09:50] VITALS: BP 113/62; PULSE 83
[2024-10-21] MEDS: Folic Acid 1 MG Tablet PO (09:50)
[2024-10-21] MEDS: Magnesium Chloride 64 MG Delay Rel.Tablet 128 MG PO (09:50)
[2024-10-21] MEDS: Multivitamins,Ther W-Minerals Tablet 1 TABLET PO (09:50)
[2024-10-21] MEDS: Thiamine Hydrochloride 100 MG Tablet PO (09:50)
[2024-10-21] MEDS: Metoprolol Tartrate 50 MG Tablet PO (09:50)
[2024-10-21] MEDS: Atorvastatin Calcium 20 MG Tablet PO (09:50)
--- NOTE | 2024-10-21 10:46 | PN.ID_ITS ---
Physical Exam Narrative Feeling better, discharge planned, no fever, no abd pain Const alert and no apparent distress General Appearance: cooperative Resp normal air movement and clear to auscultation bilaterally Cardio regular rate and regular rhythm GI soft to palpation, non-tender and non-distended Skin no rashes or lesions noted ID ID: Route of nutrition/ use of supplements: [] Nutritional Intake: [] IV Site: [] Samson Catheter: [] Assessment & Plan Assessment/Plan (1) Right renal mass: (2) Acute pyelonephritis: PLAN: Feeling better. Complicated by klebsiella bacteremia. Ucx with GNR and enterococcus-like in 08/2024. Single bcx also with CoNS, suspect contaminant. Seen by urology here. Concern for renal mass contributing to new onset recurren t uti. Will cont unasyn. Ok for discharge home on augmentin bid for 4 more days. Will follow prn, d/w Dr. Aparicio (3) Left flank pain:
--- NOTE | 2024-10-21 10:53 | PCM.DC.SUM ---
Providers Date of Admission: 10/16/24 Date of Discharge: 10/21/24 Primary Care Physician: Dr. Avinash Senior MD Consultations 10/16/24 20:32 Consult: Urology Routine Consulting Provider: Rocio Cisneros Reason for Consult: ? Acute Pyelo, worsening hydro EMERGENT Consult: No Notified: Yes Date Notified: 10/16/24 Time Notified: 18:50 Method of Notification: ED Physician Initiated 10/18/24 07:41 Consult: Nephrology Routine Consulting Provider: Christian Ayala Reason for Consult: Hyponatremia, HYPOK, Alcohol dependance EMERGENT Consult: No Notified: Yes Date Notified: 10/18/24 Time Notified: 07:41 Method of Notification: Text 10/19/24 12:45 Consult: Infectious Disease Routine Consulting Provider: Bruce Byrd Reason for Consult: GNR and GPC bacteremia EMERGENT Consult: No Notified: Yes Date Notified: 10/19/24 Time Notified: 12:45 Method of Notification: Text Reason For Visit: PYELONEPHRITIS, HYDRONEPHROSIS WORSENING Diagnosis Discharge Diagnosis (1) Right renal mass: Status: Acute Code(s): N28.89 - Other specified disorders of kidney and ureter (2) Acute pyelonephritis: Status: Acute Code(s): N10 - Acute pyelonephritis (3) Left flank pain: Status: Acute Code(s): R10.9 - Unspecified abdominal pain Plan The patient is a 64 y/o F is being admitted for left flank pain for about 1 week. She denied history of urinary frequency hesitancy, subjective fever and chills. CT abdomen individually reviewed #1. Left upper flank, not due to pyelonephritis but has a right renal concerning mass: CT abdomen reviewed. Right kidney edematous, lobular, hyperattenuating region within right renal pelvis, chronic with perinephric stranding with moderate to severe hydronephrosis, no obstructing stone with features concerning for renal mass. Discussed with her Urologist. Her left upper flank and lower thoracic pain seems more musculoskeletal. No significant tenderness in left lower quadrant. No suprapubic tenderness. Patient was recently admitted and discharged on August 30, 2024 on antibiotic ampicillin after treatment for sepsis due to UTI and GIANCARLO. urine culture grew GNR lactose supervisor frame sample and pattern, less than 1000 colonies and possible Enterococcus, 1002 10,000 colonies Blood cultures x 2 urine culture ordered. Urologist consulted. Currently patient on IV cefepime. 10/18: Blood cx positive of GNR in anaerobic bottle and GPC in cluster. Bacterial detection PCR reported GNR lactose supervisor frame sample and pattern and staph species. Full culture pending. Empirically, IV antibioitc is changed to IV Vanco and Zosyn on 10/17. 10/18: Bacterial identification shows still hominis and Klebsiella pneumonia. Continue antibiotic. ID consult tomorrow. 2D echo ordered 10/20: Blood culture shows Klebsiella pneumoniae and Staph hominis, coagulase-negative staph. Patient was evaluated by ID. Repeat blood culture ordered. Stop vancomycin. Zosyn narrowed down to Unasyn. Urine culture shows Klebsiella pneumoniae 11,000-25,000. 10/21: Repeat urine culture is pending but no growth for 1 day. Discussed with ID. Patient is being discharged on Augmentin 875 mg p.o. twice daily for 5 days. Discuss[address] with urologist Dr. Cisneros and patient is referred to follow-up with urologist Dr. Douglas Mccord within 1 month. #2. Acute hyponatremia, hypochloremia, hypovolemic component probably due to chronic alcohol use: Patient is stated that she drinks 1 shot of from but seems more than what she stated. She also having 1 or 2 times loose bowel movement, watery consistency. No blood. IV fluid replacement. She also had couple of vomiting clear gastric last 1 week. Admission BMP with sod. ium 125, chloride 83 repeat shows sodium 128. Anion gap 15. 10/18: Sodium potassium, chloride and bicarb is still low. Anion gap 14 better. Health Promotion Officer consulted. Patient not responding to IV fluid normal saline therefore started on sodium tablet. Potassium supplemented. Hypomagnesemia and hypophosphatemia resolved. 10/19: Potassium is better. Sodium is still low. 10/20: Sodium still 131 serum potassium normal 10/21: Discussed with the political research scientist. Sodium and potassium are normal therefore sodium tablet and potassium supplements discontinued. Follow-up with the political research scientist. HCTZ also discontinued. If patient gets swelling the best diuretic will be furosemide. #3. Severe anemia and acute thrombocytopenia: Platelet count was about 384 in ferritin 25. Platelet count dropped from 142-96. The reason is unclear. Patient on antibiotic. She also drinks alcohol. 10/18: Platelet count mildly low from bacteremia. Patient does not look septic. Sepsis ruled out. 10/19: Potassium is still low. Hemoglobin dropped from 10.4-7.8. Patient does not have active blood loss. Probably due to the patient bacteremia. Stool for occult blood ordered 10/20: Hemoglobin 7.8. Platelet count 129,000 #4. Hypokalemia, hypophosphatemia with significant hypomagnesemia: Admission K+ 2.8, magnesium level 0.7. IV electrolyte potassium, phosphate and magnesium replaced. Repeat magnesium was 2.1 #5. Chronic Kidney Disease Stage IIIa, : Admission BUN/creatinine 16/1.8.Her creatinine was 3.3 in August 202410/18: Creatinine improving 1.68. 10/2019 creatinine 1.33. This creatinine is the lowest since August 2610/21: GIANCARLO resolved. BUN/creatinine 9/1.14. #6. Chronic cigarette smoking and marijuana use: Tobacco cessation advised. Nicotine replacement offered #7. Chronic normocytic anemia: Admission hemoglobin 10.4, MCV 92.6, baseline hemoglobin has been 8-10 range, more recently 08/29/2024 hemoglobin 8.1, continue to trend CBC. #8. Diabetes mellitus type II with chronic neuropathy: Hold oral home regimen, ADA diet, accu checks w/ ISS, continue home gabapentin regimen. 10/21: Glucoses controlled 105 #9. Hypertension: Continue home regimen including metoprolol with hold parameters as needed, PRN hydralazine. #10. Hyperlipidemia: Will continue patient on statin therapy. #11. EtOH Abuse: Patient notes routine consumption of the equivalent of 2-3 rum and Cokes per day. Will maintain on CIWA protocol, MVI, thiamine and folic acid. Encouraged decrease and discussed when absolute sobriety should be the direction. Mag low and being supplemented now, phos pending. #12. DVT prophylaxis: SCDs pending urology evaluation given #1 as noted. #13. CODE status: Patient has not had healthcare preparatory or living will in place. Discussed CODE status at length including difference between FULL code, DNR-CCA and DNR-CC status. Following discussions about the differences in these status, requested Full Code status. Discharge medication reconciliation done. Discharge follow-up instructions completed. Discharge process discussed with the patient and all questions were answered to patient's satisfaction. Follow with PCP in 1 to 2 weeks Total time spent, exact 35 minutes on discharge meds reconciliation, examination, coordination of care with nurses and ancillary staff, review of imaging and blood test and discussion with the patient on follow-up instructions. Medications at Discharge Home Medications atorvastatin 20 mg tablet 20 mg PO DAILY cholesterol 08/27/24 metformin 500 mg tablet 500 mg PO DAILY diabetes 08/27/24 metoprolol tartrate 50 mg tablet 50 mg PO BID blood pressure 08/27/24 albuterol sulfate 90 mcg/actuation aerosol inhaler 2 puff inhalation Q6H PRN wheezing 10/16/24 amoxicillin 875 mg-potassium clavulanate 125 mg tablet 1 tab PO BID 5 days #10 tabs 10/21/24 folic acid 1 mg tablet 1 mg PO BREAKFAST 1 month #30 tabs 10/21/24 thiamine HCl (vitamin B1) 100 mg tablet 100 mg PO BREAKFAST 30 days #30 tabs 10/21/24 Physical Exam Narrative Seen and examined. Loose bowel movement resolved. Enteric pathogen panel negative. C. difficile negative. Occult blood and lactoferrin also negative. Physical exam General: Alert, Oriented x3, Cooperative HEENT: Atraumatic, PERRLA, EOMI, Normocephalic Oral: No Gingival or Mucosal Lesions/ Ulcerations Neck: Supple, No JVD, Negative Carotid Bruits Chest wall/Lungs: Air entry diminished in bilateral lung bases. No crepitation/rhonchi Cardiovascular: Regular rate, Regular Rhythm, Normal S1, Normal S2, No M/G/R Abdomen: Bowel Sounds Present, Soft, no tenderness in left flank/left upper quadrant or LLQ : No dysuria. No renal angle tenderness. No suprapubic tenderness. No tenderness left upper back and lower thoracic/rib cage muscles Extremities: No edema, Capillary Refill Less than 3 Seconds Skin: No rashes, No breakdown Musculoskeletal: No Tenderness to Palpation of Joints or Extremities Neurological: Cranial nerves II-XII grossly intact, DTR 2+/4. No acute focal neurological deficit. Psych/Mental Status: Flat Weight / BMI Weight Weight: 149 lb 7.574 oz Body Mass Index (BMI) 25.6 ABG / Lab / Microbiology Data 10/20/24 04:04 10/21/24 06:28 Laboratory: Laboratory Results - last 24 hr 10/20/24 11:06: POC Glucose 152 H 10/20/24 16:03: POC Glucose 104 10/20/24 20:10: POC Glucose 124 H 10/21/24 06:28: Sodium 134, Potassium 4.6, Chloride 104, Carbon Dioxide 19.4 L, Anion Gap 11, BUN 9, Creatinine 1.14, Estim Creat Clear Calc 46.55 L, Est GFR (MDRD) Non-Af 53 L, BUN/Creatinine Ratio 7.7 L, Glucose 105 H, Calcium 8.3 Microbiology: Microbiology 10/20/24 10:08 Stool Stool Lactoferrin - Final 10/20/24 10:08 Stool Enteric Bacteriology - Final 10/20/24 10:08 Stool Clostridioides difficile (PCR) - Final 10/20/24 10:08 Stool Stool Occult Blood (CARL) - Final 10/19/24 20:45 Stool Stool Occult Blood (CARL) - Final 10/16/24 18:42 Blood Culture (Wb) - Anticubital Right Blood Culture - Final GNR lactose supervisor frame sample and pattern 10/16/24 18:42 Blood Culture (Wb) - Left Wrist Blood Culture - Final Klebsiella pneumoniae sp pneum Staphylococcus hominis hominis 10/16/24 17:30 Urine, Clean Catch Urine Culture - Final Klebsiella pneumoniae sp pneum Radiography Diagnostic Testing: Radiology Impression Echocardiogram 10/19/24 12:48 Interpretation Summary Normal LV size. Left ventricular systolic function is normal. The left ventricular ejection fraction is 65 %. Structurally normal valves. There is no evidence of a mass or vegetation. This does not rule out endocarditis. Ordering Physician: Paulo Aparicio Referring Physician: vAinash Senior M.D. Performed By: Naomi Hoffman RCS D/C Instructions Discharge Diet: No restrictions Weight Bearing Status: Weight bearing as tolerated Call your doctor if you observe: Fever of 101 or Higher, Coldness, Increased Pain, Numbness or Tingling, Change in Color, Inability to urinate, Inability to have a bowel movement, Shortness of breath, Dizziness, Fainting spells, Swelling in the ankles, Chest pain, Prolonged hiccupping, Increased palpitations (irregular heartbeat) and Calf discomfort DC O2, CPAP, BIPAP Needs Home O2 Discharge instructions: No When: IN 2 WEEKS Meaningful Use Info Meaningful Use Meaningful Use Diagnoses (Choose all that apply): None applicable Ischemic Stroke Statin Dosing Therapy Reference: STATIN DOSE THERAPY REFERENCE: * Patients > 75 years receive moderate or high dose statin therapy. * Patients 75 years or YOUNGER should receive HIGH intensity statin dose unless contraindicated. You will be required to document reason for non-treatment if statin daily dose does not meet guidelines. HIGH DOSE STATIN THERAPY DAILY Atorvastatin > than or = to 40 mg Rosuvastatin > than or = to 20 mg Amlodipine + Atorvastatin > than or = to 2.5/40 mg Ezetimibe + Simvastatin 10/80 mg Simvastatin 80mg Discharge Plan Admission Admit Date/Time: 10/16/24 18:49 Attending Provider: Paulo Aparicio Primary Care Provider: Avinash Senior Consulting Providers: Rocio Cisneros; Renae Pyle; Christina Ayala; Bruce Byrd Instructions Additional Instructions / Restrictions: Patient is referred to follow-up outpatient with Dr. Douglas Capone, urologist in [facility] for right kidney mass Discharge Orders/Prescriptions Prescriptions: New thiamine HCl (vitamin B1) 100 mg Tablet 100 mg PO BREAKFAST 30 Days Qty: 30 2RF amoxicillin-pot clavulanate 875-125 mg tablet 1 tab PO BID 5 Days Qty: 10 0RF folic acid 1 mg tablet 1 mg PO BREAKFAST 30 Days Qty: 30 3RF Continued metformin 500 mg tablet 500 mg PO DAILY atorvastatin 20 mg tablet 20 mg PO DAILY metoprolol tartrate 50 mg tablet 50 mg PO BID Patient Comments: per pt has been taking daily albuterol sulfate 90 mcg/actuation HFA aerosol inhaler 2 puff INHALATION Q6H PRN (Reason: wheezing) Discontinued hydrochlorothiazide 12.5 mg tablet 12.5 mg PO DAILY Referrals / Follow Up: Rehana Smith MD [Med Staff - Consulting] - Within 2 Weeks (Follow-up for CKD, hyponatremia and hypokalemia) Avinash Senior MD [Primary Care Provider] - Disposition Disposition (needs filled in before D/C Order can be placed): Home, Self Care Charges/Coding Visit Charges Inpatient E&M: 98269 Disch Hosp >30min
--- NOTE | 2024-10-21 11:11 | PHA.DC_ITS ---
Pharmacy [facility] has performed discharge medication reconciliation and counseling for this patient. The patient's discharge medication list was reviewed for discrepancies and discrepancies were resolved. The patient was counseled on the following discharge medications and changes in medications for homegoing were reviewed. The Reason for Use, instructions for use, and potential side effects were reviewed for all new medications. The patient's questions regarding all of their medications were answered. 1. Amoxicillin/clavulanate 875/125 mg PO BID x 5 days 2. Thiamine 100 mg PO daily 2. Folic acid 1 mg PO daily The patient was able to verbally demonstrate an understanding of their discharge medications. Medications at Discharge Home Medications atorvastatin 20 mg tablet 20 mg PO DAILY cholesterol 08/27/24 metformin 500 mg tablet 500 mg PO DAILY diabetes 08/27/24 metoprolol tartrate 50 mg tablet 50 mg PO BID blood pressure 08/27/24 albuterol sulfate 90 mcg/actuation aerosol inhaler 2 puff inhalation Q6H PRN wheezing 10/16/24 amoxicillin 875 mg-potassium clavulanate 125 mg tablet 1 tab PO BID 5 days #10 tabs 10/21/24 folic acid 1 mg tablet 1 mg PO BREAKFAST 1 month #30 tabs 10/21/24 thiamine HCl (vitamin B1) 100 mg tablet 100 mg PO BREAKFAST 30 days #30 tabs 10/21/24
--- NOTE | 2024-10-21 11:13 | CASEMGMT ---
Patient has order for discharge. RN CM into discuss needs at discharge. Patient denies needs or help at discharge. Patient has no further questions or concerns.
[2024-10-21 11:48] LABS: Bedside Glucose 126 mg/dL (74-106)
--- NOTE | 2024-10-21 12:15 | PCM.PN.REN ---
Subjective Subjective no new events Objective Data Objective Data Vital Signs: Vital Signs Temp Pulse Resp BP Pulse Ox O2 Del Method 97.7 F L 83 16 113/62 100 Room Air 10/21/24 09:38 10/21/24 09:50 10/21/24 09:38 10/21/24 09:50 10/21/24 09:38 10/21/24 09:40 Oxygen Delivery Method Room Air Weight: 67.8 kg Body Mass Index (BMI) 25.6 Intake & Output: Intake and Output for Last 24 Hours 10/19/24 10/20/24 10/21/24 23:59 23:59 23:59 Intake Total 1395 / 1635 2204 / 3004 912 / 912 Output Total 375 / 375 1000 / 1000 Balance 1020 / 1260 2204 / 2604 -88 / -88 Lab / Micro Data 10/20/24 04:04 10/21/24 06:28 Labs: Laboratory Results - last 24 hr 10/20/24 16:03: POC Glucose 104 10/20/24 20:10: POC Glucose 124 H 10/21/24 06:28: Sodium 134, Potassium 4.6, Chloride 104, Carbon Dioxide 19.4 L, Anion Gap 11, BUN 9, Creatinine 1.14, Estim Creat Clear Calc 46.55 L, Est GFR (MDRD) Non-Af 53 L, BUN/Creatinine Ratio 7.7 L, Glucose 105 H, Calcium 8.3 10/21/24 11:30: POC Glucose 126 H Micro: Microbiology 10/20/24 10:08 Stool Stool Lactoferrin - Final 10/20/24 10:08 Stool Enteric Bacteriology - Final 10/20/24 10:08 Stool Clostridioides difficile (PCR) - Final 10/20/24 10:08 Stool Stool Occult Blood (CARL) - Final 10/19/24 20:45 Stool Stool Occult Blood (CARL) - Final 10/16/24 18:42 Blood Culture (Wb) - Anticubital Right Blood Culture - Final GNR lactose health and safety director 10/16/24 18:42 Blood Culture (Wb) - Left Wrist Blood Culture - Final Klebsiella pneumoniae sp pneum Staphylococcus hominis hominis 10/16/24 17:30 Urine, Clean Catch Urine Culture - Final Klebsiella pneumoniae sp pneum Physical Exam Narrative Alert and oriented x 3, no apparent distress S1, S2, RRR Lungs sound clear anteriorly and posteriorly. No wheezes rhonchi or rales Abdomen soft, positive bowel sounds no edema to legs or feet Assessment & Plan Assessment/Plan (1) GIANCARLO (acute kidney injury): (2) Hyponatremia: PLAN: Plan This is a pleasant 64-year-old female with past medical history significant for hypertension, hyperlipidemia, diabetes mellitus type 2, chronic anemia, alcohol abuse (rum and coke), admitted for acute pyelonephritis. Nephrology consulted for hyponatremia and GIANCARLO. Baseline sodium and creatinine unknown. During last hospitalization end of August 2024 (patient was admitted for UTI and sepsis, hyponatremia and GIANCARLO) patient's sodium was 121 on admission, improved to 129 on August 29. She was discharged home off hydrochlorothiazide. sodium better and normal today low K is better Cr is back to normal mostly nutritional deficiencies dc today
== END 2024-10-21 11:55 | disposition home or self-care (01) | DRG 699 ==
LOC: ED 19:18 → PCU 19:28
PROVIDERS: Nurse Practitioner Adult Health; Admitting Provider Family Medicine; Emergency Provider Emergency Medicine; PCP Internal Medicine; Visit Provider Internal Medicine
DX: N28.89 Other specified disorders of kidney and ureter (principal); E87.20 Acidosis, unspecified; E87.1 Hypo-osmolality and hyponatremia; D63.1 Anemia in chronic kidney disease; B95.2 Enterococcus as the cause of diseases classified elsewhere; B96.1 Klebsiella pneumoniae [K. pneumoniae] as the cause of diseases classified elsewhere; E11.22 Type 2 diabetes mellitus with diabetic chronic kidney disease; N18.32 Chronic kidney disease, stage 3b; F10.10 Alcohol abuse, uncomplicated; I12.9 Hypertensive chronic kidney disease with stage 1 through stage 4 chronic kidney disease, or unspecified chronic kidney disease; N17.9 Acute kidney failure, unspecified; E11.40 Type 2 diabetes mellitus with diabetic neuropathy, unspecified; E83.42 Hypomagnesemia; F17.210 Nicotine dependence, cigarettes, uncomplicated; E87.6 Hypokalemia; E78.5 Hyperlipidemia, unspecified; E87.8 Other disorders of electrolyte and fluid balance, not elsewhere classified; K29.70 Gastritis, unspecified, without bleeding; B95.7 Other staphylococcus as the cause of diseases classified elsewhere; Z79.84 Long term (current) use of oral hypoglycemic drugs; Z83.3 Family history of diabetes mellitus; Z79.2 Long term (current) use of antibiotics; N13.30 Unspecified hydronephrosis; Z79.51 Long term (current) use of inhaled steroids; Z79.02 Long term (current) use of antithrombotics/antiplatelets; Z79.899 Other long term (current) drug therapy; N10 Acute pyelonephritis
CPT/HCPCS: 36415; 74176; 80048; 80053; 80202; 81001; 82274; 82962; 83605; 83630; 83735; 84100; 84156; 85025; 87040; 87077; 87086; 87088; 87149; 87186; 87493; 87506; 93005; 93306; 94668; 99283; 99406; A4216; J0295; J0696